=== PATIENT | female | born 1945 | race Two or more races ===

== ENCOUNTER 2021-04-10 13:57 | Emergency (ER) | payer MEDICARE, SELFPAY ==
[2021-04-10] VITALS (7 sets, daily range): BP systolic 136–170; BP diastolic 82–93; PULSE 77–94; RESP 21–22; TEMP 37.1; O2SAT 92–97; BMI 36.9
--- NOTE | ~2021-04-10 | XR_ITS ---
EXAMINATION: XR CHEST CLINICAL INFORMATION: Cough, shortness of breath. COMPARISON: 03/02/2018 portable chest. TECHNIQUE: 2 views of the chest were obtained. FINDINGS: No significant abnormality is noted involving the heart, lungs, mediastinum, bony thorax or soft tissues. XR/XR chest 2V IMPRESSION: No acute cardiopulmonary process.
--- NOTE | 2021-04-10 14:19 | ECG_ITS ---
Test Reason : SHORTNESS OF BREATH Blood Pressure : / mmHG Vent. Rate : 078 BPM Atrial Rate : 078 BPM P-R Int : 138 ms QRS Dur : 118 ms QT Int : 382 ms P-R-T Axes : 026 -10 147 degrees QTc Int : 435 ms Normal sinus rhythm Left ventricular hypertrophy with QRS widening and repolarization abnormality ( R in aVL , [place] product ) Incomplete left bundle branch block Abnormal ECG T wave inversion more evident in Lateral leads Referred By: Generic ED Physician Electronically Signed By:BETTY UNDERWOOD MD
[2021-04-10 14:24] LABS: MANUAL DIFF FLAG NO
--- NOTE | 2021-04-10 14:25 | PHA.MEDREC ---
Pharmacy Consult ? Medication Reconciliation Pharmacy has completed the medication reconciliation. Patient has a list of medication from [facility] which aligned with claim history. Patient use [facility] at [facility] pharmacy. Cindy TorresD
[2021-04-10 14:27] LABS: Basophils Absolute Auto 0.1 X10*3/uL (0.0-0.2); Basophils Percent Auto 0.8 % (0-2); Eosinophils Absolute Auto 0.4 X10*3/uL (0.0-0.4); Eosinophils Percent Auto 5.4 % (0-4); Hematocrit 44.6 % (37-47); Hemoglobin 14.8 g/dl (12.0-16.0); Imm Gran Abs Auto 0.02 X10*3/uL (0.00-0.03); Imm Gran Pct Auto 0.3 % (0.0-0.4); Lymphocytes Absolute Auto 2.3 X10*3/uL (1.2-4.9); Lymphocytes Percent Auto 29.2 % (20-40); Mean Corpuscular HGB Conc 33.2 g/dl (31.0-35.0); Mean Corpuscular Volume 93.5 fL (80-98); Monocytes Absolute Auto 0.9 X10*3/uL (0.1-1.2); Monocytes Percent Auto 11.7 % (2-11); Neutrophils Absolute Auto 4.2 X10*3/uL (2.0-8.3); Neutrophils Percent Auto 52.6 % (45-73); Platelet Count 218 X10*3/uL (160-400); Red Blood Count 4.77 X10*6/uL (4.20-5.50); Red Cell Distribution Width 12.3 % (11.0-16.0)
[2021-04-10 14:43] LABS: Alanine Aminotransferase 23 U/L (0-31); Albumin Level 4.2 g/dL (3.5-5.0); Alkaline Phosphatase 107 U/L (39-117); Anion Gap 12 (12-20); Aspartate Amino Transferase 19 U/L (5-31); Bilirubin Total 0.7 mg/dL (0.0-1.0); Blood Urea Nitrogen 12 mg/dL (9-16); Calcium 9.5 mg/dL (8.4-10.2); Carbon Dioxide 28 mmol/L (22-29); Chloride 105 mmol/L (96-108); Creatinine Clr Calc Pharmacy 65.9; Estimated Glomerular Filt Rate > 60; Glucose Random 126 mg/dL (60-115); Potassium 3.9 mmol/L (3.3-5.1); Sodium 141 mmol/L (135-145); Total Protein 6.9 g/dL (6.5-8.0)
[2021-04-10 14:45] LABS: COVID-19 Test Negative (Negative)
[2021-04-10 14:46] LABS: B Type Natriuretic Peptide 101 pg/mL (<100); Troponin-I High Sensitivity < 3.5 ng/L (<3.5-17.0)
--- NOTE | 2021-04-10 15:35 | ED.URI ---
HPI - URI/Sore Throat General Chief Complaint: Upper Respiratory Symptoms Stated Complaint: CHEST PAIN X 3 WEEKS Time Seen by Provider: 04/10/21 14:19 Source: patient and EMS Mode of arrival: EMS History of Present Illness HPI Narrative: 75-year-old female with past medical history of HTN, dm, pulmonary hypertension, aortic stenosis, sent in from [facility] complaining of SOB and productive cough x1 week, noted to be SOB on exertion. Reported per patient's daughter patient to have chest pain, however patient is denying. Reports chronic LE edema. 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 Denies fever, chills, recent travel, sick contacts, abdominal pain, nausea/vomiting, CP. MD elicited complaint: cough Related Data Home Medications Medication Instructions Recorded Confirmed acetaminophen 500 mg tablet 1 tab PO Q8H PRN 04/10/21 04/10/21 amlodipine 5 mg tablet 1 tab PO DAILY 04/10/21 04/10/21 cholecalciferol (vitamin D3) 25 1 tab PO QAM 04/10/21 04/10/21 mcg (1,000 unit) tablet clopidogrel 75 mg tablet 1 tab PO QAM 04/10/21 04/10/21 furosemide 20 mg tablet 0.5 tab PO QAM 04/10/21 04/10/21 pravastatin 40 mg tablet 1 tab PO BEDTIME 04/10/21 04/10/21 valsartan 320 mg tablet (Diovan) 1 tab PO QAM 04/10/21 04/10/21 Previous Rx's Medication Instructions Recorded albuterol sulfate 90 mcg/actuation 2 puff INHALATION Q4-6H PRN #6.7 g 04/10/21 aerosol inhaler benzonatate 100 mg capsule 100 mg PO TID PRN #14 cap 04/10/21 (Tessalon Perles) fluticasone propionate 50 2 spray INTRANASAL DAILY #16 g 04/10/21 mcg/actuation nasal spray,suspension (Flonase Allergy Relief) Allergies Allergy/AdvReac Type Severity Reaction Status Date / Time aspirin [ASPIRIN] Allergy Intermediate NUMBNESS Unverified 03/10/20 17:05 Penicillins [PENICILLINS] Allergy Intermediate RASH Unverified 03/10/20 17:05 penicillin V Allergy Unknown Verified 01/19/20 00:00 potassium Allergy Unknown Verified 01/19/20 00:00 Review of Systems Review of Systems: Constitutional: No Fever, No Chills, No Fatigue, No Malaise ENT/Mouth: No Ear Pain, No Nasal Congestion, No Sinus Pain, No sore throat, No Rhinorrhea, No Swallowing Difficulty Eyes: No Eye Pain, No Swelling, No Redness, No Discharge, No Vision Changes Cardiovascular: No Chest Pain, + SOB, + Dyspnea on Exertion, No Orthopnea, +chronic Edema, No Palpitations Respiratory: + Cough, + Sputum, No Wheezing, +Dyspnea Gastrointestinal: No Nausea, No Vomiting, No Diarrhea, No Constipation, No Abdominal pain Genitourinary: No irregular bleeding, No Dysuria, No Urinary Frequency, No Hematuria, No Flank Pain Musculoskeletal: No joint pain, No Myalgias Skin: No Skin Lesions, No rash Neuro: No Weakness, No Numbness, No Dizziness, No Headache Yes all other systems are reviewed and are negative [facility] Past Medical History Attestation statement: The following information was validated with the patient. Social History Social History Alcohol intake: unknown Patient Tobacco Use Status: Tobacco use Unknown Use of substances other than those prescribed or required for medical reasons: Unknown Advance Directives: No Advance Directives Information Provided: Yes Physical Exam Vital Signs: Vital Signs: Last Vital Signs Temp 98.8 F 04/10/21 15:27 Pulse 83 04/10/21 16:17 Resp 21 H 04/10/21 15:27 BP 160/93 H 04/10/21 15:41 Pulse Ox 92 04/10/21 16:56 Oxygen Flow Rate 2 04/10/21 14:40 Body Mass Index 36.9 Const: General: cooperative and no acute distress Orientation/consciousness: patient oriented x3 Limitations: no limitations HENMT: Head: Yes normal to inspection Ears: hearing grossly normal bilaterally General nose exam: Normal external nose present Face and sinus: Yes normal facial exam Eyes: General: appearance normal, both eyes and all related structures EOM: EOMs intact bilaterally Neck: Neck: Yes normal visual inspection and Yes no meningeal signs Resp: Other: Talking in complete sentences Effort & Inspection: normal respiratory effort Auscultation: diminished lung sounds (Bibasilar) Cardio: Rate: regular rate Heart sounds: S1 normal heart sound present, S2 normal heart sound present and Abnormal heart opening sounds (Murmur) GI: Inspection: Yes normal to inspection Palpation (GI): Soft to palpation, nontender, no guarding and not rigid Skin: Rashes: no rashes Wounds: no wounds Neuro: General: patient oriented x3, tone normal, moves all extremities and no meningeal signs Gait exam (Neuro): Normal gait present Extrem: Other: +1 bilaterally LE edema General: Yes normal to inspection and Yes no calf tenderness Course Course Course Narrative: -1546--no leukocytosis. H&H stable. Labs otherwise unremarkable. BNP 101, troponin negative -COVID-19 negative XR chest 2V IMPRESSION: No acute cardiopulmonary process. -1720--ambulated patient with pulse ox and she maintained saturations of 92% on RA. Results discussed with patient and daughter at bedside including worrisome signs and symptoms and strict return precautions the need to follow-up with PCP/Cardiology, patient verbalized understanding feel safe for discharge home MDM - URI/Sore Throat MDM Narrative Medical decision making narrative: 75-year-old female with past medical history of HTN, dm, pulmonary hypertension, aortic stenosis, sent in [facility] complaining of SOB and productive cough x1 week, noted to be SOB on exertion. On exam mildly tachypneic, murmur appreciated, lungs with bibasilar decreased BS, chronic LE edema. Concern for viral syndrome, tested negative for COVID-19 [employer]. Rule out pneumonia vs CHF. Symptoms atypical for ACS or PE Plan: EKG, labs, CXR, COVID-19 testing, DuoNeb, re-evaluate Medical Records Attestation: I reviewed the patient's medical records. Lab Data Attestation: I reviewed the patient's lab results. Result diagrams: 04/10/21 14:20 04/10/21 14:20 Labs: Lab Results 04/10/21 04/10/21 04/10/21 Range/Units 14:20 14:20 14:20 WBC 8.0 (4.8-10.8) X10*3/uL RBC 4.77 (4.20-5.50) X10*6/uL Hgb 14.8 (12.0-16.0) g/dl Hct 44.6 (37-47) % MCV 93.5 (80-98) fL MCH 31.0 (27.0-33.0) pg MCHC 33.2 (31.0-35.0) g/dl RDW 12.3 (11.0-16.0) % Plt Count 218 (160-400) X10*3/uL MPV 10.0 (9.4-12.3) fL Immature Gran % (Auto) 0.3 (0.0-0.4) % Neut % (Auto) 52.6 (45-73) % Lymph % (Auto) 29.2 (20-40) % [place] % (Auto) 11.7 H (2-11) % Eos % (Auto) 5.4 H (0-4) % Baso % (Auto) 0.8 (0-2) % Lymph # (Auto) 2.3 (1.2-4.9) X10*3/uL [place] # (Auto) 0.9 (0.1-1.2) X10*3/uL Eos # (Auto) 0.4 (0.0-0.4) X10*3/uL Baso # (Auto) 0.1 (0.0-0.2) X10*3/uL Abs Immat Gran (auto) 0.02 (0.00-0.03) X10*3/uL Absolute Neuts (auto) 4.2 (2.0-8.3) X10*3/uL Absolute Nucleated RBC 0.000 (0.0-0.012) X10*3/uL Nucleated RBC % (auto) 0.0 (0.0-0.2) /100WBC Sodium 141 (135-145) mmol/L Potassium 3.9 (3.3-5.1) mmol/L Chloride 105 (96-108) mmol/L Carbon Dioxide 28 (22-29) mmol/L Anion Gap 12 (12-20) BUN 12 (9-16) mg/dL Creatinine 0.80 (0.5-1.4) mg/dL Estim Creat Clear Calc 65.9 Estimated GFR > 60 Random Glucose 126 H (60-115) mg/dL Calcium 9.5 (8.4-10.2) mg/dL Total Bilirubin 0.7 (0.0-1.0) mg/dL AST 19 (5-31) U/L ALT 23 (0-31) U/L Alkaline Phosphatase 107 (39-117) U/L Troponin I High Sens < 3.5 (<3.5-17.0) ng/L B-Natriuretic Peptide 101 H (<100) pg/mL Total Protein 6.9 (6.5-8.0) g/dL Albumin 4.2 (3.5-5.0) g/dL COVID-19 (JAYSON) (Negative) COVID-19 Clin Com 04/10/21 Range/Units 14:20 WBC (4.8-10.8) X10*3/uL RBC (4.20-5.50) X10*6/uL Hgb (12.0-16.0) g/dl Hct (37-47) % MCV (80-98) fL MCH (27.0-33.0) pg MCHC (31.0-35.0) g/dl RDW (11.0-16.0) % Plt Count (160-400) X10*3/uL MPV (9.4-12.3) fL Immature Gran % (Auto) (0.0-0.4) % Neut % (Auto) (45-73) % Lymph % (Auto) (20-40) % [place] % (Auto) (2-11) % Eos % (Auto) (0-4) % Baso % (Auto) (0-2) % Lymph # (Auto) (1.2-4.9) X10*3/uL [place] # (Auto) (0.1-1.2) X10*3/uL Eos # (Auto) (0.0-0.4) X10*3/uL Baso # (Auto) (0.0-0.2) X10*3/uL Abs Immat Gran (auto) (0.00-0.03) X10*3/uL Absolute Neuts (auto) (2.0-8.3) X10*3/uL Absolute Nucleated RBC (0.0-0.012) X10*3/uL Nucleated RBC % (auto) (0.0-0.2) /100WBC Sodium (135-145) mmol/L Potassium (3.3-5.1) mmol/L Chloride (96-108) mmol/L Carbon Dioxide (22-29) mmol/L Anion Gap (12-20) BUN (9-16) mg/dL Creatinine (0.5-1.4) mg/dL Estim Creat Clear Calc Estimated GFR Random Glucose (60-115) mg/dL Calcium (8.4-10.2) mg/dL Total Bilirubin (0.0-1.0) mg/dL AST (5-31) U/L ALT (0-31) U/L Alkaline Phosphatase (39-117) U/L Troponin I High Sens (<3.5-17.0) ng/L B-Natriuretic Peptide (<100) pg/mL Total Protein (6.5-8.0) g/dL Albumin (3.5-5.0) g/dL COVID-19 (JAYSON) Negative (Negative) COVID-19 Clin Com See Note ECG Data Attestation: I personally reviewed and interpreted this ECG as follows: ECG interpretation date: 04/10/21 Prior ECG tracings: available for review Interpretation: EKG normal sinus rhythm rate of 78 P are 138 QRS 118 Wide complex with repolarization Nonspecific ST changes Discharge Plan Discharge Clinical Impression: Upper respiratory infection Qualifiers: URI type: unspecified viral URI Qualified Code(s): J06.9 - Acute upper respiratory infection, unspecified Patient Disposition: Home, Self-Care Instructions: Viral Syndrome (ED) Additional Instructions: Your blood work was reassuring today in the ED. Her chest x-ray was unremarkable. He tests negative for COVID. It is important for you to continue her home medications. Use albuterol inhaler at home as needed for shortness of breath/wheezing. 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 If your symptoms persist or worsen, constant worsening shortness of breath, developed chest pain, fever or chills please return to the ED. Tessalon Perles for cough. Reyes an?lisis de renan fue reconfortante hoy en el servicio de urgencias. Reyes radiograf?a de t?rax no tuvo nada especial. Da negativo para COVID. Es importante que contin?e tomando huma medicamentos en el hogar. Use el inhalador de albuterol en casa seg?n sea necesario para la dificultad para respirar / sibilancias. Comun?quese con reyes cardi?logo lo antes posible, llame ma?adama para programar jeni barbara. Si huma s?ntomas persisten o empeoran, dificultad para respirar que empeora constantemente, dolor en el pecho desarrollado, fiebre o escalofr?os, regrese al servicio de urgencias. Tessalon Perles para la tos. Prescriptions: New albuterol sulfate 90 mcg/actuation HFA aerosol inhaler 2 puff inhalation Q4-6H PRN (Reason: shortness of breath or wheezing) Qty: 6.7 RF: 0 benzonatate [Tessalon Perles] 100 mg capsule 100 mg PO TID PRN (Reason: cough) Qty: 14 RF: 0 fluticasone propionate [Flonase Allergy Relief] 50 mcg/actuation spray,suspension 2 spray intranasal DAILY Qty: 16 RF: 0 No Action pravastatin 40 mg tablet 1 tab PO BEDTIME RF: 0 clopidogrel 75 mg tablet 1 tab PO QAM RF: 0 amlodipine 5 mg tablet 1 tab PO DAILY RF: 0 acetaminophen 500 mg tablet 1 tab PO Q8H PRN (Reason: Pain) RF: 0 valsartan [Diovan] 320 mg tablet 1 tab PO QAM RF: 0 furosemide 20 mg tablet 0.5 tab PO QAM RF: 0 cholecalciferol (vitamin D3) 25 mcg (1,000 unit) tablet 1 tab PO QAM RF: 0 Referrals: Gauri Cardenas MD [Primary Care Provider] - 2 days Johan Ellis MD [Physician] - 2 days Print Language: Guyanese
[2021-04-10] MEDS: amLODIPine Besylate 5 MG TABLET PO (15:41)
[2021-04-10] MEDS: Benzonatate 100 MG CAPSULE 200 MG PO (15:43)
[2021-04-10] MEDS: Albuterol/Iprat 2.5/0.5MG 3 ML AMPUL.NEB INHALE (16:17)
== END 2021-04-10 17:51 | disposition home or self-care (01) ==
PROVIDERS: Emergency Provider Emergency Medicine; PCP Family Medicine
DX: J06.9 Acute upper respiratory infection, unspecified (principal); R07.9 Chest pain, unspecified; I10 Essential (primary) hypertension; R05.9 Cough, unspecified; Z20.822 Contact with and (suspected) exposure to COVID-19; Z79.899 Other long term (current) drug therapy
CPT/HCPCS: 36415; 71046; 80053; 83880; 84484; 85025; 87635; 93005; 94640; 99284; 99285

== ENCOUNTER 2022-01-22 11:11 | Outpatient (REF) | payer OTHER, SELFPAY ==
[2022-01-22 12:15] LABS: COVID-19 Test Negative (Negative)
== END 2022-01-22 11:12 | disposition home or self-care (01) ==
LOC: HO.LAB 11:11
PROVIDERS: Visit Provider Internal Medicine
DX: Z20.822 Contact with and (suspected) exposure to COVID-19 (principal)
CPT/HCPCS: 87635; C9803

== ENCOUNTER 2022-02-13 08:27 | Inpatient (IN) | payer OTHER, SELFPAY ==
--- NOTE | ~2022-02-13 | CT_ITS ---
EXAMINATION: CT HEAD WITHOUT CONTRAST CLINICAL INFORMATION: Weakness of right leg. COMPARISON: None TECHNIQUE: Contiguous axial imaging was performed from the skull base to vertex without intravenous administration of contrast. This CT examination was performed using dose optimization techniques as appropriate, variously including the following: *Automated exposure control *Adjustment of mA and/or kV according to patient size (this includes techniques or standardized protocols for targeted exams where dose is matched to indication/reason for exam; i.e. extremities or head) *Use of iterative reconstruction technique DLP: 648 mGy-cm FINDINGS: There is atherosclerotic calcification of the vertebrobasilar and cavernous carotid arteries. 2 mild patchy hypoattenuation is present in supratentorial white matter is likely sequela of chronic microangiopathy. Otherwise, the brain parenchyma has normal attenuation. The schuler-white matter differentiation is well preserved. No evidence of an acute major vascular territory infarction. No intracranial hemorrhage, extra-axial fluid collection, focal mass effect or midline shift. The ventricles have normal size and configuration; no hydrocephalus. The brainstem and cerebellum have a normal appearance. The cerebellar tonsils are in normal position. The calvarium is intact. Mucosal thickening of bilateral ethmoid and maxillary sinuses without air-fluid levels. The mastoid air cells and middle ear cavities are well aerated. The orbits and globes are unremarkable. The temporomandibular joints are normal. CT/CT head/brain wo con IMPRESSION: * No evidence of intracranial hemorrhage or acute major vascular territory infarction. 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
--- NOTE | ~2022-02-13 | MR_ITS ---
MRI OF THE BRAIN WITHOUT IV CONTRAST INDICATION: Right leg weakness to evaluate for stroke. COMPARISON: Head CT 02/13/2022. TECHNIQUE: Multiplanar multisequence MR imaging of the brain was obtained without IV contrast. FINDINGS: There is no hydrocephalus, extra-axial surface collection, or herniation. There is advanced chronic microangiopathy and there is global cerebral volume loss. The major flow voids at the skull base are preserved. There is no acute infarct on diffusion-weighted imaging. There is favored artifact within the left temporal lobe and left uncus on the diffusion series which extends outside the intracranial compartment. There is no intracranial hemorrhage on the gradient recalled echo acquisition. Chronic microhemorrhages within the cerebellar hemispheres bilaterally. The midline structures are normal. The cerebellar tonsils are normally positioned. The cerebellum and brainstem are normal. Atlantooccipital assimilation bilaterally. Osseous marrow signal intensity is homogenous. The visualized soft tissues are unremarkable. MR/MR head/brain wo con IMPRESSION: No definite acute intracranial findings however the stroke sensitive diffusion series is limited, particularly given favored artifact coursing through the left temporal lobe and left uncus. There is advanced chronic microangiopathy and there is global cerebral volume loss. Atlantooccipital assimilation bilaterally. Chronic microhemorrhages within the cerebellar hemispheres bilaterally.
--- NOTE | ~2022-02-13 | US_ITS ---
EXAMINATION: US PELVIS CLINICAL INFORMATION: Right adnexal mass COMPARISON: None TECHNIQUE: Ultrasound of the pelvis is performed using both transabdominal and transvaginal transducers along with Doppler. Transvaginal imaging is performed due to inadequate visualization transabdominally. FINDINGS: Uterus: The uterus is anteverted, anteflexed and measures 6.0 cm in length, 3.1 mL in AP and 4.0 cm in transverse dimension. The double wall endometrial thickness is 0.3 cm. The uterus is smooth in contour and has normal myometrial echogenicity. There is a small hypoechoic area in the right body of uterus measuring 0.7 x 0.8 x 0.6 cm suggestive of small fibroid. Adnexa: The bladder is significant distended and patient unable to void. Both ovaries are not visualized. The transvaginal exam is limited as well. There is a right adnexal anechoic cyst measuring 8.0 x 3.9 x 5.1 cm. Question ovarian versus paraovarian cyst. There is a trace free fluid in the cul-de-sac. US/US pelvic and transvaginal IMPRESSION: Small uterine fibroid. The uterus otherwise unremarkable. Patient is unable to void moderately distended bladder. Transvaginal ultrasound is limited. Ovaries are not seen. However there is a right adnexal 8 cm cyst, question ovarian versus paraovarian. Trace free fluid in the cul-de-sac.
--- NOTE | ~2022-02-13 | CT_ITS ---
EXAMINATION: CTA ABDOMEN, PELVIS AND LOWER EXTREMITY RUNOFF WITH CONTRAST CLINICAL INFORMATION: Right leg pain. Decreased pulses. COMPARISON: None TECHNIQUE: Routine abdominal aorta and lower extremity runoff CTA protocol with contrast was performed. 100 mL of Omnipaque 350 was administered. Coronal and sagittal MIPS images were generated from the source data. This CT examination was performed using dose optimization techniques as appropriate, variously including the following: *Automated exposure control *Adjustment of mA and/or kV according to patient size (this includes techniques or standardized protocols for targeted exams where dose is matched to indication/reason for exam; i.e. extremities or head) *Use of iterative reconstruction technique TOTAL DLP: 552 mGy-cm FINDINGS: Vascular: 1. Distal Thoracic aorta:Normal in caliber. 2. Mesenteric Arteries:The celiac axis, superior mesenteric artery and inferior mesenteric artery are patent. There is mild calcific disease at the origins of the celiac and superior mesenteric arteries which does not result in hemodynamically significant stenosis. 3. Renal Arteries:There are 2 renal arteries to each kidney. There is atherosclerotic disease at the origins of each of the renal arteries which does not result in hemodynamically significant stenosis. 4. Infrarenal Abdominal Aorta:Patent normal in caliber. There is moderate eccentric wall calcification without luminal stenosis. 5. Right Lower Extremity Arterial Perfusion: The common, external and internal iliac arteries are well-opacified and normal in caliber. No significant stenosis. The common femoral, profunda femoris, superficial femoral arteries are well opacified without stenosis. The popliteal artery is widely patent. There is minimal calcific disease at the level of the condyles without stenosis. The anterior tibial artery, tibioperoneal trunk, posterior tibial and peroneal arteries are opacified to the level of the ankle. There is no opacification of the vessels beyond level of the ankle. This may likely relate to contrast bolus timing. 6. Left Lower Extremity Arterial Perfusion: The common, external, and internal iliac arteries are well opacified, normal in caliber and without luminal stenosis. The common femoral artery is patent without stenosis. The profunda femoris is patent without stenosis. The superficial femoral artery is patent without stenosis. Popliteal artery is widely patent. The anterior tibial, posterior tibial, peroneal arteries are patent to the level of the distal calf beyond which there is no significant arterial opacification. This is most likely related to chronic. 7. Venous: The inferior vena cava, renal veins, iliofemoral veins have an unremarkable appearance for a venous phase of contrast. There are presumed chronic venous stasis changes of the lower extremities at the level of the calf and below with possible calcification of superficial vessels on the right. NONVASCULAR: Lung Bases: Limited by respiratory motion. The lung bases are clear. There is no pleural effusion. The heart is at the upper limits of normal for size. Liver, Gallbladder and Biliary Tree: The liver is normal in size, shape, and attenuation. No focal hepatic lesion or biliary ductal dilatation is present. Gallbladder is unremarkable. Pancreas: Unremarkable. Spleen: Unremarkable. Adrenal Glands: Unremarkable. Kidneys and Ureters: The kidneys are normal in size, shape, and attenuation. At the mid to lower pole the left kidney there is a 1.8 cm cyst which does not require routine radiographic follow-up. At the lower pole there is a similar 1 cm simple cyst. There is a 2 mm calcification at the lower pole of the right kidney which could represent a nonobstructing calculus versus a vascular calcification (image 363, series 6). There is no hydronephrosis or hydroureter. No perinephric stranding. Bladder: Unremarkable. Gastrointestinal Tract: The small and large bowel are unremarkable. The appendix is unremarkable. Abdominal Wall: No significant hernia is appreciated. Lymph Nodes: Normal. Pelvic Viscera: Unremarkable appearance of the uterus and left adnexa. Within the right adnexa there is a relatively homogeneous indeterminate 8.4 x 4.4 x 5.2 cm lesion. Osseous Structures: Mild multilevel degenerative changes. No acute or aggressive bony abnormality. CT/CT angio abd aorta runoff IMPRESSION: Patent abdominopelvic arterial vasculature. There is no opacification of the runoff vessels beyond the level of the distal calf bilaterally. This is most likely related to contrast bolus timing. There are presumed chronic venous stasis changes of the right lower extremity and soft tissue edema. There is an indeterminate 8.4 x 5.2 x 4.4 cm right adnexal lesion which appears relatively homogeneous, likely simple appearing. Follow-up ultrasound for further characterization suggested.
--- NOTE | ~2022-02-13 | MR_ITS ---
EXAMINATION: MR LUMBAR SPINE WITHOUT CONTRAST CLINICAL INFORMATION: Low back pain. Right lower extremity numbness and weakness. COMPARISON: CT angiogram of the abdomen and pelvis 02/13/2022. TECHNIQUE: MRI of the lumbar spine was obtained using routine sequences without contrast. FINDINGS: There is transitional spinal anatomy at the lumbosacral junction with partial lumbarization of the S1 vertebral segment. There is a well-formed intervertebral disc at S1-S2. There is grade 1 anterolisthesis of L5 on S1. Alignment is otherwise normal. Vertebral heights are preserved. There is a sclerotic osseous lesions involving the left L3 pedicle. Otherwise no acute bone marrow signal changes. The tip of the conus medullaris is located at L1. No mass effect on the conus. Visualized distal cord signal intensity is normal. At L1-L2 and L2-L3 the annular contours are normal. No canal or neuroforaminal compromise at these 2 levels. At L3-L4 there is a slightly bulging disc. No canal stenosis. No mass effect on the traversing or foraminal nerve roots. At L4-L5 there is a slightly bulging disc. Bilateral facet degenerative change. No canal stenosis. No mass effect on the traversing or foraminal nerve roots. At L5-S1 there is a pseudodisc bulge. Advanced facet degenerative change. Mild canal stenosis. Subarticular zone narrowing causes abutment and possible compression of the traversing S1 nerve roots. No foraminal nerve root compression. At S1-S2 there is no canal or neuroforaminal compromise. Limited visualization of the retroperitoneal anatomy reveals a few well marginated benign-appearing cystic lesions within the left kidney. Psoas and paraspinal muscle groups are symmetric. MR/MR lumbar spine wo con IMPRESSION: Of note there is transitional spinal anatomy at the lumbosacral junction with partial lumbarization of the S1 vertebral segment. There is a well-formed intervertebral disc at S1-S2. There is multilevel degenerative spondylosis of the lumbar spine with grade 1 anterolisthesis of L5 on S1 related to advanced facet degenerative changes at this level. Subarticular zone narrowing at this level causes abutment and possible compression of both traversing S1 nerve roots. Otherwise no substantial mass effect on the traversing or foraminal nerve roots elsewhere within the lumbar spine. There is a nonspecific sclerotic lesion involving the left L3 pedicle. The etiology of this finding is uncertain. The possibility of a sclerotic osseous metastasis cannot be definitively excluded on the basis of this examination. Correlation with prior imaging is therefore recommended if available. Otherwise a whole-body bone scan can be obtained to determine whether there is any osteoblastic activity.
--- NOTE | ~2022-02-13 | XR_ITS ---
EXAMINATION: XR HIP, RIGHT CLINICAL INFORMATION: Pain COMPARISON: None TECHNIQUE: Two views of the right hip and one view of the pelvis. FINDINGS: Bone alignment is normal. No fracture or dislocation is seen. 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 There are degenerative changes at the sacroiliac joints. There are degenerative changes at the bilateral greater trochanters without soft tissue ossification/osteophyte. Soft tissues are otherwise unremarkable. XR/XR hip RT min 2V IMPRESSION: Bilateral degenerative changes.
--- NOTE | ~2022-02-13 | MR_ITS ---
MR THORACIC SPINE WITHOUT AND WITH IV CONTRAST CLINICAL INFORMATION: Right leg weakness. COMPARISON: Lumbar spine MRI 02/13/2022. TECHNIQUE: MRI of the thoracic spine was obtained using routine sequences with and without contrast. Intravenous contrast: Gadavist 10 mL. FINDINGS: Leftward convex lumbar scoliosis. There are fairly extensive nonenhancing intramedullary T2 signal changes within the thoracic spinal cord, greater on the right side, spanning the T9 through the L1 conus tip level. Differential considerations for these findings include a thoracic spinal cord infarct, venous congestion, or less likely an inflammatory, demyelinating, or neoplastic given the lack of enhancement however assessment on postcontrast imaging is limited by the degree of artifact. No definite flow voids are seen along the periphery of the thoracic spinal cord however a spinal angiogram would be helpful in more definitively excluding a spinal dural aVF as a cause for these findings. Close follow-up is advised. No definite additional spinal cord signal abnormality. No pathologic intrathecal enhancement accounting for artifact. Midthoracic kyphosis. Multilevel endplate osteophytes. Vertebral body heights are preserved. Small paracentral disc protrusions at T2-T3, T3-T4, T4-T5, T5-T6, T6-T7 and T7-T8, and T8-T9 highly dense ventral thecal sac and mildly narrow the central canal appears levels. The disc protrusion at T8-T9 slightly flattens the ventral cord. No high-grade foraminal stenosis. MR/MR thoracic spine wo/w con IMPRESSION: - There are fairly extensive nonenhancing intramedullary T2 signal changes within the thoracic spinal cord, greater on the right side, spanning the T9 through the L1 conus tip level. Differential considerations for these findings include a thoracic spinal cord infarct, venous congestion, or less likely an inflammatory, demyelinating, or neoplastic given the lack of enhancement however assessment on postcontrast imaging is limited by the degree of artifact. No definite flow voids are seen along the periphery of the thoracic spinal cord however a spinal angiogram would be helpful in more definitively excluding a spinal dural aVF as a cause for these findings. Close follow-up is advised. - Small paracentral disc protrusions throughout the thoracic spine without significant central canal stenosis. A disc protrusion at T8-T9 mildly flattens the ventral cord without resulting in significant central canal stenosis. Findings discussed with Gauri FELIPE at 1:32 PM on 02/16/2022.
--- NOTE | ~2022-02-13 | XR_ITS ---
EXAMINATION: XR CHEST CLINICAL INFORMATION: Pain COMPARISON: Chest radiograph from 04/10/2020 TECHNIQUE: Frontal view of the chest was obtained. FINDINGS: Bilateral low lung volumes with slight accentuation of the pulmonary vasculature. Bibasilar atelectasis. Cardiomediastinal silhouette is stable. Osseous structures are intact. Soft tissues are unremarkable. XR/XR chest 1V IMPRESSION: 1. Bilateral low lung volumes with slight accentuation of the pulmonary vasculature. 2. Bibasilar atelectasis.
--- NOTE | 2022-02-13 08:36 | ECG_ITS ---
Test Reason : abdominal pain Blood Pressure : / mmHG Vent. Rate : 072 BPM Atrial Rate : 072 BPM P-R Int : 142 ms QRS Dur : 122 ms QT Int : 418 ms P-R-T Axes : 024 -19 143 degrees QTc Int : 457 ms Normal sinus rhythm Left bundle branch block Abnormal ECG When compared with ECG of 10-APR-2021 15:04, Left bundle branch block is now Present Referred By: Supriya Hernandez Electronically Signed By:MARK TRIANA
--- NOTE | 2022-02-13 08:42 | ED.EXTPRO ---
HPI - Extremity Problem General Chief complaint: General Medical Stated complaint: LEG/BACK PAIN PER EMS Time Seen by Provider: 02/13/22 08:35 Source: patient, EMS and science interpreter Mode of arrival: EMS Limitations: other (very poor historian) History of Present Illness HPI Narrative: 76 yo female from home hx of HTN, DM, pulm HTN, HLD, asthma, aortic stenosis reports she woke up at 4am went to use the bathroom and noted her R foot was numb. She also developed R sided back pain. She denies falls. She states the symptoms have worsened and she cannot move her R leg. She is not on blood thinners. She called 911 - EMS notes she vomited en route. Patient woke up with symptoms and presented 4.5 hours after onset MD Complaint: other (R leg weakness/numbness/pain) Onset (ago): hour(s) (woke up with symptoms 4am) Pain Consistency: other (worsening) Location: right and lower extremity Quality: aching and other (states it is numb) Radiation: distal Relieving factors: nothing Exacerbating factors: walking Associated symptoms: other (c/o pain in R flank as well, vomited x 1 en route) Related Data Home Medications Medication Instructions Recorded Confirmed acetaminophen 500 mg tablet 1 tab PO Q8H PRN Pain 04/10/21 04/10/21 amlodipine 5 mg tablet 1 tab PO DAILY 04/10/21 04/10/21 cholecalciferol (vitamin D3) 25 1 tab PO QAM 04/10/21 04/10/21 mcg (1,000 unit) tablet clopidogrel 75 mg tablet 1 tab PO QAM 04/10/21 04/10/21 furosemide 20 mg tablet 0.5 tab PO QAM 04/10/21 04/10/21 pravastatin 40 mg tablet 1 tab PO BEDTIME 04/10/21 04/10/21 valsartan 320 mg tablet (Diovan) 1 tab PO QAM 04/10/21 04/10/21 Previous Rx's Medication Instructions Recorded albuterol sulfate 90 mcg/actuation 2 puff inhalation Q4-6H PRN 04/10/21 aerosol inhaler shortness of breath or wheezing #6.7 grams benzonatate 100 mg capsule 100 mg PO TID PRN cough #14 caps 04/10/21 (Ramon Sparks) fluticasone propionate 50 2 spray intranasal DAILY #16 grams 04/10/21 mcg/actuation nasal spray,suspension (Flonase Allergy Relief) Allergies Allergy/AdvReac Type Severity Reaction Status Date / Time aspirin [ASPIRIN] Allergy Intermediate NUMBNESS Unverified 03/10/20 17:05 Penicillins [PENICILLINS] Allergy Intermediate RASH Unverified 03/10/20 17:05 penicillin V Allergy Unknown Verified 01/19/20 00:00 potassium Allergy Unknown Verified 01/19/20 00:00 Review of Systems Review of Systems: Constitutional : No Fever, No Chills ENT/Mouth : No Ear Pain, No Hoarseness, No sore throat Eyes: No Eye Pain, No Swelling, No Redness, No Foreign Body Cardiovascular : No Chest Pain, No SOB Respiratory : No Cough, No Dyspnea Gastrointestinal : No Nausea, No Vomiting, No Diarrhea, pos abdominal Pain Genitourinary : No Dysuria, No Hematuria Musculoskeletal : no joint pain, No Myalgias, No Joint Swelling, pos leg pain Skin : No Skin lacerations, No rash Neuro : No Weakness, pos Numbness, No Loss of Consciousness, No Dizziness, No Headache Psych : No Anxiety/Panic, No Depression Heme/Lymph: no easy bruising, no Lymphadenopathy Endocrine : No Polyuria, No Polydipsia All other systems reviewed and are negative [facility] Past Medical History Attestation statement: The following information was validated with the patient. Medical History Aortic stenosis Asthma Diabetes HTN (hypertension) Hyperlipidemia Pulmonary hypertension Social History Social History (Updated 02/13/22 @ 08:46 by Supriya Hernandez DO) Alcohol intake: never Patient Tobacco Use Status: Never used Tobacco Use of substances other than those prescribed or required for medical reasons: No Advance Directives: Yes Advance Directives Information Provided: Yes Advance Directives on File: No Physical Exam Vital Signs: Vital Signs: Last Vital Signs Temp 98.5 F 02/13/22 14:18 Pulse 68 02/13/22 14:18 Resp 18 02/13/22 14:18 BP 142/70 H 02/13/22 14:18 Pulse Ox 97 02/13/22 14:18 O2 Del Method 02/13/22 14:18 O2 Flow Rate 2 02/13/22 14:18 BMI result Body Mass Index 29.5 Appearance: Alert. Oriented X3. Anxious mild acute distress. Very hard to get a history from, repeatedly had to be questioned and redirected , has no issues rolling back and forth on the bed Eyes: Pupils equal, round and reactive to light. ENT: Pharynx normal. Neck: Normal inspection. Neck supple. CVS: Normal heart rate and rhythm. R foot unable to palpate pulses but she does have dopplerable pulses - L foot bounding pulses so there is a discrepancy Respiratory: No respiratory distress. Breath sounds normal. Abdomen: Soft and ttp in R flank no rebound : perineal sensation intact Rectal: normal rectal tone, no pain or grimace at all when rotating the patient onto her back or laying patient flat Skin: Skin warm and dry. Normal skin color. Normal skin turgor. Extremities: bilatera trace pitting edema, R leg is flaccid but patient will not move leg or try no compensatory heel response in left leg when asked to raise the right leg - she states she cannot feel the right leg. Neuro: Oriented X 3. RLE flaccid, numbness No sensory deficit. NIH Stroke Scale Internal: Initial- Upon Arrival Level of Consciousness: Alert Level of Consciousness Questions: Answers both questions correctly Level of Consciousness Commands: Performs both tasks correctly Best Gaze: Normal Visual: No visual loss Facial Palsy: Normal Motor Arm (Right): No drift Motor Arm (Left): No drift Motor Leg (Right): No movement Motor Leg (Left): No drift Limb Ataxia: Absent Sensory: Normal Best Language: No aphasia Dysarthia: Normal Extinction and Inattention: No abnormality Score: 4 Course Course Course Narrative: daughter at bedside - states mom always has chronic leg pain, the patient is moving her right leg now and crying in pain, patient withdrawing now from tactile stimuli when touched and states it hurts. which doesn't make sense if her leg is numb. she has 1+ DTR bilaterally but difficult to examine due to pain. At this time will give morphine and reassess. Could be chronic pain and she is moving leg now and seems to have sensation intact. at this time lactic acidosis could be due to episode of vomiting and patient thrashing around on arrival no infection or signs of sepsis at this time has no tachycardia, fevers, WBC count will obtain MRI of back given RL findings and c/o back pain lactic increases but no signs of infection - negative WBC count, negative for pneumonia, negative UTI. unexplained lactic acidosis - MRI does not correlate with findings - will admit for back pain and RLE weakness. given increasing lactic acidosis I do not have a source but possible infection cannot be excluded will obtain cultures - start on levofloxacin 244pm may need MRI of brain while admitted possible stroke was out of window for tPa MDM - Extremity (Nontraumatic) MDM Narrative Medical decision making narrative: 76 yo female from home hx of HTN, DM, pulm HTN, HLD, asthma, aortic stenosis here with a very atypical story and presentation but a constellation of symptoms including R flank pain, vomiting x1, R leg numbness/flaccidity with decreased pulses and pain only able to doppler her pulses which is different from her left side exam. At this time will obtain labs, CT head for stroke (out of window for tPa - presenting 4.5 hours later and wake up). CTA of aorta given R leg pain/weakness/decreased pulses to r/o emboli/occlusion. IV morphine for pain. Dispo per results and findings. I do not think she has compression of the back given no back pain on exam, normal rectal tone. Lab Data Result diagrams: 02/13/22 09:10 02/13/22 09:10 Labs: Lab Results 02/13/22 02/13/22 02/13/22 Range/Units 08:51 09:10 09:10 WBC 7.1 (4.8-10.8) X10*3/uL RBC 4.86 (4.20-5.50) X10*6/uL Hgb 15.3 (12.0-16.0) g/dl Hct 44.8 (37.0-47.0) % MCV 92.2 (80.0-98.0) fL MCH 31.5 (27.0-33.0) pg MCHC 34.2 (31.0-35.0) g/dl RDW 12.2 (11.0-16.0) % Plt Count 182 (160-400) X10*3/uL MPV 10.4 (9.4-12.3) fL Immature Gran % (Auto) 1.0 H (0.0-0.4) % Neut % (Auto) 79.4 H (45-73) % Lymph % (Auto) 14.0 L (20-40) % Bailey % (Auto) 4.9 (2-11) % Eos % (Auto) 0.1 (0-4) % Baso % (Auto) 0.6 (0-2) % Lymph # (Auto) 1.0 L (1.2-4.9) X10*3/uL Bailey # (Auto) 0.4 (0.1-1.2) X10*3/uL Eos # (Auto) 0.0 (0.0-0.4) X10*3/uL Baso # (Auto) 0.0 (0.0-0.2) X10*3/uL Abs Immat Gran (auto) 0.07 H (0.00-0.03) X10*3/uL Absolute Neuts (auto) 5.7 (2.0-8.3) x10*3/uL Absolute Nucleated RBC 0.000 (0.0-0.012) X10*3/uL Nucleated RBC % (auto) 0.0 (0.0-0.2) /100WBC PT (10.0-13.1) SEC INR (0.9-1.1) APTT (26.0-36.4) SEC Sodium 137 (135-145) mmol/L Potassium 3.7 (3.3-5.1) mmol/L Chloride 101 (96-108) mmol/L Carbon Dioxide 22 (22-29) mmol/L Anion Gap 18 (12-20) BUN 13 (9-16) mg/dL Creatinine 0.72 (0.5-1.4) mg/dL Estim Creat Clear Calc 64.3 Estimated GFR > 60 POC Glucose 175 H (60-115) mg/dL Random Glucose 219 H (60-115) mg/dL Lactic Acid (0.5-2.0) mmol/L Lactic Acid F/U @ 2Hr (0.5-2.0) mmol/L Lactic Acid F/U @ 4Hr (0.5-2.0) mmol/L Calcium 9.1 (8.4-10.2) mg/dL Magnesium 1.8 (1.6-2.6) mg/dL Total Bilirubin 1.0 (0.0-1.0) mg/dL Direct Bilirubin 0.4 (0.0-0.5) mg/dL AST 23 (5-31) U/L ALT 32 H (0-31) U/L Alkaline Phosphatase 103 (39-117) U/L Troponin I High Sens (<3.5-17.0) ng/L B-Natriuretic Peptide (<100) pg/mL Total Protein 7.4 (6.5-8.0) g/dL Albumin 4.5 (3.5-5.0) g/dL Lipase 16 (8-78) U/L Urine Color Urine Appearance Urine pH (5.0-8.0) Ur Specific [place] (1.005-1.025) Urine Protein (Neg-Trace) mg/dL Urine Glucose (UA) (Negative) mg/dL Urine Ketones (Negative) mg/dL Urine Blood (Negative) Urine Nitrite (Negative) Ur Leukocyte Esterase (Negative) COVID-19 (JA[facility]ON) (Negative) COVID-19 Clin Com 02/13/22 02/13/22 02/13/22 Range/Units 09:10 09:10 09:10 WBC (4.8-10.8) X10*3/uL RBC (4.20-5.50) X10*6/uL Hgb (12.0-16.0) g/dl Hct (37.0-47.0) % MCV (80.0-98.0) fL MCH (27.0-33.0) pg MCHC (31.0-35.0) g/dl RDW (11.0-16.0) % Plt Count (160-400) X10*3/uL MPV (9.4-12.3) fL Immature Gran % (Auto) (0.0-0.4) % Neut % (Auto) (45-73) % Lymph % (Auto) (20-40) % Bailey % (Auto) (2-11) % Eos % (Auto) (0-4) % Baso % (Auto) (0-2) % Lymph # (Auto) (1.2-4.9) X10*3/uL Bailey # (Auto) (0.1-1.2) X10*3/uL Eos # (Auto) (0.0-0.4) X10*3/uL Baso # (Auto) (0.0-0.2) X10*3/uL Abs Immat Gran (auto) (0.00-0.03) X10*3/uL Absolute Neuts (auto) (2.0-8.3) x10*3/uL Absolute Nucleated RBC (0.0-0.012) X10*3/uL Nucleated RBC % (auto) (0.0-0.2) /100WBC PT (10.0-13.1) SEC INR (0.9-1.1) APTT (26.0-36.4) SEC Sodium (135-145) mmol/L Potassium (3.3-5.1) mmol/L Chloride (96-108) mmol/L Carbon Dioxide (22-29) mmol/L Anion Gap (12-20) BUN (9-16) mg/dL Creatinine (0.5-1.4) mg/dL Estim Creat Clear Calc Estimated GFR POC Glucose (60-115) mg/dL Random Glucose (60-115) mg/dL Lactic Acid 2.6 H* (0.5-2.0) mmol/L Lactic Acid F/U @ 2Hr (0.5-2.0) mmol/L Lactic Acid F/U @ 4Hr (0.5-2.0) mmol/L Calcium (8.4-10.2) mg/dL Magnesium (1.6-2.6) mg/dL Total Bilirubin (0.0-1.0) mg/dL Direct Bilirubin (0.0-0.5) mg/dL AST (5-31) U/L ALT (0-31) U/L Alkaline Phosphatase (39-117) U/L Troponin I High Sens (<3.5-17.0) ng/L B-Natriuretic Peptide 252 H (<100) pg/mL Total Protein (6.5-8.0) g/dL Albumin (3.5-5.0) g/dL Lipase (8-78) U/L Urine Color Urine Appearance Urine pH (5.0-8.0) Ur Specific [place] (1.005-1.025) Urine Protein (Neg-Trace) mg/dL Urine Glucose (UA) (Negative) mg/dL Urine Ketones (Negative) mg/dL Urine Blood (Negative) Urine Nitrite (Negative) Ur Leukocyte Esterase (Negative) COVID-19 ([facility]ON) Negative (Negative) COVID-19 Clin Com See Note 02/13/22 02/13/22 02/13/22 Range/Units 09:10 09:10 11:27 WBC (4.8-10.8) X10*3/uL RBC (4.20-5.50) X10*6/uL Hgb (12.0-16.0) g/dl Hct (37.0-47.0) % MCV (80.0-98.0) fL MCH (27.0-33.0) pg MCHC (31.0-35.0) g/dl RDW (11.0-16.0) % Plt Count (160-400) X10*3/uL MPV (9.4-12.3) fL Immature Gran % (Auto) (0.0-0.4) % Neut % (Auto) (45-73) % Lymph % (Auto) (20-40) % Bailey % (Auto) (2-11) % Eos % (Auto) (0-4) % Baso % (Auto) (0-2) % Lymph # (Auto) (1.2-4.9) X10*3/uL Bailey # (Auto) (0.1-1.2) X10*3/uL Eos # (Auto) (0.0-0.4) X10*3/uL Baso # (Auto) (0.0-0.2) X10*3/uL Abs Immat Gran (auto) (0.00-0.03) X10*3/uL Absolute Neuts (auto) (2.0-8.3) x10*3/uL Absolute Nucleated RBC (0.0-0.012) X10*3/uL Nucleated RBC % (auto) (0.0-0.2) /100WBC PT 12.1 (10.0-13.1) SEC INR 1.1 (0.9-1.1) APTT 27.1 (26.0-36.4) SEC Sodium (135-145) mmol/L Potassium (3.3-5.1) mmol/L Chloride (96-108) mmol/L Carbon Dioxide (22-29) mmol/L Anion Gap (12-20) BUN (9-16) mg/dL Creatinine (0.5-1.4) mg/dL Estim Creat Clear Calc Estimated GFR POC Glucose (60-115) mg/dL Random Glucose (60-115) mg/dL Lactic Acid (0.5-2.0) mmol/L Lactic Acid F/U @ 2Hr 2.8 H* (0.5-2.0) mmol/L Lactic Acid F/U @ 4Hr (0.5-2.0) mmol/L Calcium (8.4-10.2) mg/dL Magnesium (1.6-2.6) mg/dL Total Bilirubin (0.0-1.0) mg/dL Direct Bilirubin (0.0-0.5) mg/dL AST (5-31) U/L ALT (0-31) U/L Alkaline Phosphatase (39-117) U/L Troponin I High Sens 3.9 (<3.5-17.0) ng/L B-Natriuretic Peptide (<100) pg/mL Total Protein (6.5-8.0) g/dL Albumin (3.5-5.0) g/dL Lipase (8-78) U/L Urine Color Urine Appearance Urine pH (5.0-8.0) Ur Specific [place] (1.005-1.025) Urine Protein (Neg-Trace) mg/dL Urine Glucose (UA) (Negative) mg/dL Urine Ketones (Negative) mg/dL Urine Blood (Negative) Urine Nitrite (Negative) Ur Leukocyte Esterase (Negative) COVID-19 ([facility]ON) (Negative) COVID-19 Clin Com 02/13/22 02/13/22 Range/Units 11:55 13:43 WBC (4.8-10.8) X10*3/uL RBC (4.20-5.50) X10*6/uL Hgb (12.0-16.0) g/dl Hct (37.0-47.0) % MCV (80.0-98.0) fL MCH (27.0-33.0) pg MCHC (31.0-35.0) g/dl RDW (11.0-16.0) % Plt Count (160-400) X10*3/uL MPV (9.4-12.3) fL Immature Gran % (Auto) (0.0-0.4) % Neut % (Auto) (45-73) % Lymph % (Auto) (20-40) % Bailey % (Auto) (2-11) % Eos % (Auto) (0-4) % Baso % (Auto) (0-2) % Lymph # (Auto) (1.2-4.9) X10*3/uL Bailey # (Auto) (0.1-1.2) X10*3/uL Eos # (Auto) (0.0-0.4) X10*3/uL Baso # (Auto) (0.0-0.2) X10*3/uL Abs Immat Gran (auto) (0.00-0.03) X10*3/uL Absolute Neuts (auto) (2.0-8.3) x10*3/uL Absolute Nucleated RBC (0.0-0.012) X10*3/uL Nucleated RBC % (auto) (0.0-0.2) /100WBC PT (10.0-13.1) SEC INR (0.9-1.1) APTT (26.0-36.4) SEC Sodium (135-145) mmol/L Potassium (3.3-5.1) mmol/L Chloride (96-108) mmol/L Carbon Dioxide (22-29) mmol/L Anion Gap (12-20) BUN (9-16) mg/dL Creatinine (0.5-1.4) mg/dL Estim Creat Clear Calc Estimated GFR POC Glucose (60-115) mg/dL Random Glucose (60-115) mg/dL Lactic Acid (0.5-2.0) mmol/L Lactic Acid F/U @ 2Hr (0.5-2.0) mmol/L Lactic Acid F/U @ 4Hr 3.4 H* (0.5-2.0) mmol/L Calcium (8.4-10.2) mg/dL Magnesium (1.6-2.6) mg/dL Total Bilirubin (0.0-1.0) mg/dL Direct Bilirubin (0.0-0.5) mg/dL AST (5-31) U/L ALT (0-31) U/L Alkaline Phosphatase (39-117) U/L Troponin I High Sens (<3.5-17.0) ng/L B-Natriuretic Peptide (<100) pg/mL Total Protein (6.5-8.0) g/dL Albumin (3.5-5.0) g/dL Lipase (8-78) U/L Urine Color Yellow Urine Appearance Clear Urine pH 8.0 (5.0-8.0) Ur Specific [place] 1.025 (1.005-1.025) Urine Protein Negative (Neg-Trace) mg/dL Urine Glucose (UA) 100 H (Negative) mg/dL Urine Ketones Trace (Negative) mg/dL Urine Blood Negative (Negative) Urine Nitrite Negative (Negative) Ur Leukocyte Esterase Negative (Negative) COVID-19 ([facility]) (Negative) COVID-19 Clin Com ECG Data Attestation EKG: I personally reviewed and interpreted this ECG as follows: ECG interpretation date: 02/13/22 ECG interpretation time: 09:03 Interpretation: Rate: 72 Rhythm: NSR Ger[place]: left Normal P waves. Normal JESSICA. LBBB ST T wave : normal no CHRISTA, LBBB pattern qTC: normal prior studies: no priors The study has been interpreted contemporaneously by me. . Discharge Plan Discharge Clinical Impression: Acidosis, lactic Leg weakness Qualifiers: Laterality: right Qualified Code(s): R29.898 - Other symptoms and signs involving the musculoskeletal system Patient Disposition: Admitted As Inpatient
[2022-02-13 08:45] VITALS: BP 124/74; BP 164/74; PULSE 76; RESP 25; TEMP 36.9; O2SAT 94; O2SAT 96; BMI 29.5
[2022-02-13 09:00] LABS: Glucose, Whole Blood 175 mg/dL (60-115)
[2022-02-13 09:15] LABS: MANUAL DIFF FLAG NO
[2022-02-13 09:17] LABS: Basophils Percent Auto 0.6 % (0-2); Eosinophils Percent Auto 0.1 % (0-4); Hematocrit 44.8 % (37.0-47.0); Hemoglobin 15.3 g/dl (12.0-16.0); Imm Gran Abs Auto 0.07 X10*3/uL (0.00-0.03); Mean Corpuscular HGB Conc 34.2 g/dl (31.0-35.0); Mean Corpuscular Hemoglobin 31.5 pg (27.0-33.0); Mean Corpuscular Volume 92.2 fL (80.0-98.0); Mean Platelet Volume 10.4 fL (9.4-12.3); Monocytes Absolute Auto 0.4 X10*3/uL (0.1-1.2); Monocytes Percent Auto 4.9 % (2-11); Neutrophils Absolute Auto 5.7 x10*3/uL (2.0-8.3); Neutrophils Percent Auto 79.4 % (45-73); Platelet Count 182 X10*3/uL (160-400); Red Blood Count 4.86 X10*6/uL (4.20-5.50); Red Cell Distribution Width 12.2 % (11.0-16.0); White Blood Count 7.1 X10*3/uL (4.8-10.8)
[2022-02-13 09:27] LABS: INTERNATIONAL NORM RATIO 1.1 (0.9-1.1); Prothrombin Time 12.1 SEC (10.0-13.1)
[2022-02-13 09:30] LABS: Lactic Acid 2.6 mmol/L (0.5-2.0); Partial Thromboplastin Time 27.1 SEC (26.0-36.4)
[2022-02-13 09:32] LABS: COVID-19 Test Negative (Negative); IDNOW Serial# 9DB6401D
[2022-02-13 09:34] LABS: Alanine Aminotransferase 32 U/L (0-31); Albumin Level 4.5 g/dL (3.5-5.0); Alkaline Phosphatase 103 U/L (39-117); Anion Gap 18 (12-20); Aspartate Amino Transferase 23 U/L (5-31); Bilirubin Direct 0.4 mg/dL (0.0-0.5); Blood Urea Nitrogen 13 mg/dL (9-16); Calcium 9.1 mg/dL (8.4-10.2); Carbon Dioxide 22 mmol/L (22-29); Chloride 101 mmol/L (96-108); Creatinine Clr Calc Pharmacy 64.3; Estimated Glomerular Filt Rate > 60; Glucose Random 219 mg/dL (60-115); Lipase 16 U/L (8-78); Magnesium 1.8 mg/dL (1.6-2.6); Potassium 3.7 mmol/L (3.3-5.1); Sodium 137 mmol/L (135-145); Total Protein 7.4 g/dL (6.5-8.0)
[2022-02-13 09:39] LABS: B Type Natriuretic Peptide 252 pg/mL (<100)
[2022-02-13 09:40] LABS: Troponin-I High Sensitivity 3.9 ng/L (<3.5-17.0)
[2022-02-13] MEDS: iohexoL 350 MG/ML 100 ML INFUS..BTL IV (09:45)
[2022-02-13] MEDS: Morphine Sulfate 2 MG/ML CARTRIDGE IVPUSH (10:02)
[2022-02-13] MEDS: ondansetron HCL 4 MG/2 ML VIAL IVPUSH (10:02)
[2022-02-13] MEDS: 0.9 % Sodium Chloride 500 ML 250 ML IV (10:06)
[2022-02-13 10:32] VITALS: BP 150/68; PULSE 79; RESP 18; O2SAT 94
[2022-02-13 11:14] LABS: Reflex Lactate? Lactic Acid Added
[2022-02-13 11:53] LABS: ~Lactic Acid-LAB USE ONLY 2.8 mmol/L (0.5-2.0)
[2022-02-13 12:15] LABS: Appearance Urine Clear; Color Urine Yellow; Glucose Urine UA 100 mg/dL (Negative); Leukocyte Esterase Urine Negative (Negative); Nitrite Urine Negative (Negative); Specific Gravity - Urine 1.025 (1.005-1.025); Urine Blood Negative (Negative); Urine Ketones Trace mg/dL (Negative); Urine Protein Negative (Neg-Trace)
[2022-02-13 13:31] LABS: Reflex Lactate? 2 Y
[2022-02-13 14:14] LABS: ~Lactic Acid-LAB USE ONLY 3.4 mmol/L (0.5-2.0)
[2022-02-13 14:18] VITALS: BP 142/70; PULSE 68; RESP 18; TEMP 36.9; O2SAT 97
--- NOTE | 2022-02-13 15:33 | PHA.MEDREC ---
Pharmacy Consult ? Medication Reconciliation Pharmacy has completed the medication reconciliation. Used barrel drainer services. Patient attests to not taking an inhaler for SOB, flonase for allergies, and benzonatate. Patient able to recall all other meds.
[2022-02-13] MEDS: levoFLOXacin/D5W 500 MG/100 ML PIGGYBACK 100 MG IV (15:41)
[2022-02-13 16:46] VITALS: BP 147/71; PULSE 66; RESP 18; TEMP 37; O2SAT 96
--- NOTE | 2022-02-13 17:42 | PM.IMHP ---
History of Present Illness Date of Service: 02/13/22 Attending physician on admission: Jony Bejarano Chief Complaint: Right lower extremity weakness/pain 76-year-old female Cuban-speaking female history obtained via park interpreter she has past medical history of hypertension, hyperlipidemia pre diabetes, history of coronary artery disease status post LA, pulmonary hypertension, aortic stenosis presented to [facility] due to right foot numbness that she noted when she woke up at 04:00 she also complained of right-sided flank/back pain patient was unable to move her right lower extremity therefore she called 911 EMS noted 1 episode of vomiting en route. Patient denies visual symptoms no speech impairment, no upper extremity weakness numbness, Patient woke up with symptoms and presented 4.5 hours after onset in the emergency room patient underwent extensive workup chest x-ray showed bibasilar atelectasis, CT head showed no evidence of intra cranial hemorrhage or acute infarction, CTA abdomen showed 8.4 in to 5.2 into 4.4 cm right adnexal lesion related be homogeneous likely simple appearing follow-up ultrasound is recommended, a lumbar spine MRI showed left L3 pedicle nonspecific sclerotic lesion of uncertain etiology a sclerotic or shows metastasis cannot be definitely excluded, whole body bone scan is recommended to determine if there is any osteoblastic activity, CBC and electrolytes are within normal range patient noted to have elevated lactic acid, patient treated in the emergency room with IV Lasix, IV fluids and IV morphine, patient continued to have right lower extremity pain but denies abdominal pain, denies nausea vomiting. 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 no dizziness CVS no chest pain, no palpitation GI no nausea no vomiting no abdominal no urinary urgency, no frequency skin no rash Yes all other systems are reviewed and are negative [facility] Medical History Aortic stenosis Asthma Diabetes HTN (hypertension) Hyperlipidemia Pulmonary hypertension Pertinent family history: Father had coronary artery disease Mother had diabetes mellitus brother also is diabetic Social History Alcohol intake: never Patient Tobacco Use Status: Never used Tobacco Use of substances other than those prescribed or required for medical reasons: No Advance Directives: Yes Advance Directives Information Provided: Yes Advance Directives on File: No Meds Allergies Allergy/AdvReac Type Severity Reaction Status Date / Time aspirin [ASPIRIN] Allergy Intermediate NUMBNESS Unverified 03/10/20 17:05 Penicillins [PENICILLINS] Allergy Intermediate RASH Unverified 03/10/20 17:05 penicillin V Allergy Unknown Verified 01/19/20 00:00 potassium Allergy Unknown Verified 01/19/20 00:00 Active Medications: Current Medications Acetaminophen (Acetaminophen 325 Mg Tablet) 650 mg PO Q6H PRN PRN Reason: Pain, Mild (Pain Scale 1-3) Amlodipine Besylate (Amlodipine Besylate 5 Mg Tablet) 5 mg PO DAILY [facility]; Protocol Clopidogrel Bisulfate (Clopidogrel Bisulfate 75 Mg Tablet) 75 mg PO DAILY [facility] Enoxaparin Sodium (Enoxaparin Sodium 40 Mg/0.4 Ml Syringe) 40 mg SUBCUT Q24H [facility] Furosemide (Furosemide 20 Mg Tablet) 10 mg PO DAILY [facility]; Protocol Doxycycline Hyclate 100 mg/ (Sodium Chloride) 250 mls @ 166.67 mls/hr IV Q12H [facility] Melatonin (Melatonin 3 Mg Tablet) 6 mg PO BEDTIME PRN PRN Reason: Insomnia Ondansetron HCl (Ondansetron Hcl 4 Mg/2 Ml Vial) 4 mg IVPUSH Q8H PRN PRN Reason: Nausea and Vomiting Oxycodone HCl (Oxycodone Hcl Immed Release 5 Mg Tablet) 5 mg PO Q6H PRN PRN Reason: Pain, Severe (Pain Scale 7-10) Pharmacy Consult (Consult Rx Perform Med Rec) 1 each MISCELLANE ONCE PRN PRN Reason: Consult order Pravastatin Sodium (Pravastatin Sodium 40 Mg Tablet) 40 mg PO BEDTIME [facility] Sodium Chloride (0.9 % Sodium Chloride Flush 3 Ml Syringe) 3 ml IVFLUSH QSHIFT [facility] Valsartan (Valsartan 320 Mg Tablet) 320 mg PO DAILY [facility]; Protocol Home Medications Medication Instructions Recorded Confirmed Last Taken Type acetaminophen 500 mg tablet 1 tab PO Q8H PRN Pain 04/10/21 02/13/22 Unknown History amlodipine 5 mg tablet 1 tab PO DAILY 04/10/21 02/13/22 02/12/22 History cholecalciferol (vitamin D3) 25 1 tab PO DAILY 04/10/21 02/13/22 02/12/22 History mcg (1,000 unit) tablet clopidogrel 75 mg tablet 1 tab PO DAILY 04/10/21 02/13/22 02/12/22 History furosemide 20 mg tablet 0.5 tab PO DAILY 04/10/21 02/13/22 02/12/22 History pravastatin 40 mg tablet 1 tab PO BEDTIME 04/10/21 02/13/22 02/12/22 History valsartan 320 mg tablet (Diovan) 1 tab PO DAILY 04/10/21 02/13/22 02/12/22 History Physical Exam Vital Signs and Narrative: Vital Signs: Last Vital Signs Temp 98.6 F 02/13/22 16:46 Pulse 66 02/13/22 16:46 Resp 18 02/13/22 16:46 BP 147/71 H 02/13/22 16:46 Pulse Ox 96 02/13/22 16:46 O2 Del Method 02/13/22 16:46 O2 Flow Rate 2 02/13/22 16:46 BMI result Body Mass Index 29.5 Const: Other: General awake alert x3, in no acute distress. HEENT pupils equal round reactive to light and accommodation Neck supple no JVD, CVS regular rate rhythm, systolic murmur Respiratory lungs clear to auscultation, no respiratory distress, no wheeze, no rhonchi. Gastrointestinal abdomen soft, nontender, bowel sounds audible, no guarding , no rigidity. Extremities no edema. Right lower extremity hyperemia and tenderness to palpation Neuro speech clear, cranial nerves 2-12 intact, no nystagmus, upper extremity strength and tone normal no pronator drift, right lower extremity weakness, decreased sensation. Normal exam left lower extremity Psych appropriate affect Results Labs CBC and Chem 7: 02/13/22 09:10 02/13/22 09:10 Labs: Laboratory Results - last 24 hr 02/13/22 02/13/22 02/13/22 08:51 09:10 09:10 MCV 92.2 MCH 31.5 MCHC 34.2 RDW 12.2 Plt Count 182 MPV 10.4 Immature Gran % (Auto) 1.0 H Neut % (Auto) 79.4 H Lymph % (Auto) 14.0 L [place] % (Auto) 4.9 Eos % (Auto) 0.1 Baso % (Auto) 0.6 Lymph # (Auto) 1.0 L [place] # (Auto) 0.4 Eos # (Auto) 0.0 Baso # (Auto) 0.0 Abs Immat Gran (auto) 0.07 H Absolute Neuts (auto) 5.7 Absolute Nucleated RBC 0.000 Nucleated RBC % (auto) 0.0 PT INR APTT Anion Gap 18 Estim Creat Clear Calc 64.3 Estimated GFR > 60 POC Glucose 175 H Random Glucose 219 H Lactic Acid Lactic Acid F/U @ 2Hr Lactic Acid F/U @ 4Hr Calcium 9.1 Magnesium 1.8 Total Bilirubin 1.0 Direct Bilirubin 0.4 AST 23 ALT 32 H Alkaline Phosphatase 103 B-Natriuretic Peptide Total Protein 7.4 Albumin 4.5 Lipase 16 Urine Color Urine Appearance Urine pH Ur Specific [place] Urine Protein Urine Glucose (UA) Urine Ketones Urine Blood Urine Nitrite Ur Leukocyte Esterase COVID-19 ([facility]) COVID-19 Clin Com 02/13/22 02/13/22 02/13/22 09:10 09:10 09:10 MCV MCH MCHC RDW Plt Count MPV Immature Gran % (Auto) Neut % (Auto) Lymph % (Auto) [place] % (Auto) Eos % (Auto) Baso % (Auto) Lymph # (Auto) [place] # (Auto) Eos # (Auto) Baso # (Auto) Abs Immat Gran (auto) Absolute Neuts (auto) Absolute Nucleated RBC Nucleated RBC % (auto) PT INR APTT Anion Gap Estim Creat Clear Calc Estimated GFR POC Glucose Random Glucose Lactic Acid 2.6 H* Lactic Acid F/U @ 2Hr Lactic Acid F/U @ 4Hr Calcium Magnesium Total Bilirubin Direct Bilirubin AST ALT Alkaline Phosphatase B-Natriuretic Peptide 252 H Total Protein Albumin Lipase Urine Color Urine Appearance Urine pH Ur Specific [place] Urine Protein Urine Glucose (UA) Urine Ketones Urine Blood Urine Nitrite Ur Leukocyte Esterase COVID-19 ([facility]) Negative COVID-19 Clin Com See Note 02/13/22 02/13/22 02/13/22 09:10 11:27 11:55 MCV MCH MCHC RDW Plt Count MPV Immature Gran % (Auto) Neut % (Auto) Lymph % (Auto) [place] % (Auto) Eos % (Auto) Baso % (Auto) Lymph # (Auto) [place] # (Auto) Eos # (Auto) Baso # (Auto) Abs Immat Gran (auto) Absolute Neuts (auto) Absolute Nucleated RBC Nucleated RBC % (auto) PT 12.1 INR 1.1 APTT 27.1 Anion Gap Estim Creat Clear Calc Estimated GFR POC Glucose Random Glucose Lactic Acid Lactic Acid F/U @ 2Hr 2.8 H* Lactic Acid F/U @ 4Hr Calcium Magnesium Total Bilirubin Direct Bilirubin AST ALT Alkaline Phosphatase B-Natriuretic Peptide Total Protein Albumin Lipase Urine Color Yellow Urine Appearance Clear Urine pH 8.0 Ur Specific [place] 1.025 Urine Protein Negative Urine Glucose (UA) 100 H Urine Ketones Trace Urine Blood Negative Urine Nitrite Negative Ur Leukocyte Esterase Negative COVID-19 ([facility]) COVID-19 Clin Com 02/13/22 13:43 MCV MCH MCHC RDW Plt Count MPV Immature Gran % (Auto) Neut % (Auto) Lymph % (Auto) [place] % (Auto) Eos % (Auto) Baso % (Auto) Lymph # (Auto) [place] # (Auto) Eos # (Auto) Baso # (Auto) Abs Immat Gran (auto) Absolute Neuts (auto) Absolute Nucleated RBC Nucleated RBC % (auto) PT INR APTT Anion Gap Estim Creat Clear Calc Estimated GFR POC Glucose Random Glucose Lactic Acid Lactic Acid F/U @ 2Hr Lactic Acid F/U @ 4Hr 3.4 H* Calcium Magnesium Total Bilirubin Direct Bilirubin AST ALT Alkaline Phosphatase B-Natriuretic Peptide Total Protein Albumin Lipase Urine Color Urine Appearance Urine pH Ur Specific [place] Urine Protein Urine Glucose (UA) Urine Ketones Urine Blood Urine Nitrite Ur Leukocyte Esterase COVID-19 ([facility]) COVID-19 Clin Com Imaging Radiologist's Impressions: Impressions Head CT 02/13/22 09:36 IMPRESSION: * No evidence of intracranial hemorrhage or acute major vascular territory infarction. 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 Chest X-Ray 02/13/22 09:40 IMPRESSION: 1. Bilateral low lung volumes with slight accentuation of the pulmonary vasculature. 2. Bibasilar atelectasis. Aorta w/Runoff CTA 02/13/22 10:10 IMPRESSION: Patent abdominopelvic arterial vasculature. There is no opacification of the runoff vessels beyond the level of the distal calf bilaterally. This is most likely related to contrast bolus timing. There are presumed chronic venous stasis changes of the right lower extremity and soft tissue edema. There is an indeterminate 8.4 x 5.2 x 4.4 cm right adnexal lesion which appears relatively homogeneous, likely simple appearing. Follow-up ultrasound for further characterization suggested. Lumbar Spine MRI 02/13/22 13:00 IMPRESSION: Of note there is transitional spinal anatomy at the lumbosacral junction with partial lumbarization of the S1 vertebral segment. There is a well-formed intervertebral disc at S1-S2. There is multilevel degenerative spondylosis of the lumbar spine with grade 1 anterolisthesis of L5 on S1 related to advanced facet degenerative changes at this level. Subarticular zone narrowing at this level causes abutment and possible compression of both traversing S1 nerve roots. Otherwise no substantial mass effect on the traversing or foraminal nerve roots elsewhere within the lumbar spine. There is a nonspecific sclerotic lesion involving the left L3 pedicle. The etiology of this finding is uncertain. The possibility of a sclerotic osseous metastasis cannot be definitively excluded on the basis of this examination. Correlation with prior imaging is therefore recommended if available. Otherwise a whole-body bone scan can be obtained to determine whether there is any osteoblastic activity. Assessment and Plan (1) Acidosis, lactic: Status: Acute (2) Leg weakness: Qualifiers: Laterality: right Qualified Code(s): R29.898 - Other symptoms and signs involving the musculoskeletal system Status: Acute (3) Cellulitis of right lower extremity: Status: Acute Plan 76-year-old female with past medical history of hypertension, hyperlipidemia, diabetes, pulmonary hypertension, asthma, aortic stenosis woke up at 04:00 induced the bathroom and noted numbness and weakness of right foot and developed right-sided back pain therefore came to the ER for evaluation and noted to have right lower extremity weakness, cellulitis and right adnexal mass. Right lower extremity weakness CT head showed no acute abnormality, no other neuro deficit Continue close neuro follow up, obtain neurology consult Place on aspirin continue statin, need good blood pressure and blood sugar control Left L3 pedicle nonspecific sclerotic lesion will discuss further w/u with Neurology Right lower extremity cellulitis IV doxycycline 100 b.i.d., has penicillin allergy No fevers, normal WBC follow clinical course Lactic acidosis question related to cellulitis treat with IV fluids follow lactic acid level, no hypotension no abdominal pain Right sided back/flank pain Right adnexal mass noted on abdominal imaging will obtain pelvic ultrasound, oxycodone 5 mg q.6 hours for pain control, follow clinical course Hypertension continue home medication follow BP Pre diabetic will place on diabetic diet and insulin sliding scale not on home medication DVT prophylaxis on Lovenox Code status full code In my clinical judgment patient will need 2 night inpatient stay for close neurological follow-up and for treatment of lower extremity cellulitis and further workup for adnexal mass and abnormal sclerotic lesion of left L3 pedicle Also requiring IV fluids for lactic acidosis. Quality Stroke Does the patient have a stroke diagnosis?: No VTE Prior VTE?: No VTE Risk Level:: Medical - moderate - high VTE Device Contraindication: Treatment Not Indicated VTE Drug Contraindication: N/A - Med Ordered
[2022-02-13] MEDS: 0.9 % Sodium Chloride 1,000 ML 100 ML IVCONT (18:06)
[2022-02-13 19:14] VITALS: BP 142/64; PULSE 65; RESP 14; TEMP 37.4; O2SAT 97
[2022-02-13] MEDS: Doxycycline Hyclate 100 MG in 0.9 % Sodium Chloride 250 ML 166.67 MG IV (19:17)
[2022-02-13] MEDS: Enoxaparin Sodium 40 MG/0.4 ML SYRINGE SUBCUT (19:17)
[2022-02-13 20:09] LABS: Lactic Acid 2.1 mmol/L (0.5-2.0)
[2022-02-13 20:54] LABS: Reflex Lactate? Lactic Acid Added
[2022-02-13 21:08] LABS: Glucose, Whole Blood 148 mg/dL (60-115)
[2022-02-13] MEDS: Pravastatin Sodium 40 MG TABLET PO (21:09)
[2022-02-13 22:16] LABS: ~Lactic Acid-LAB USE ONLY 1.2 mmol/L (0.5-2.0)
[2022-02-13] MEDS: 0.9 % Sodium Chloride Flush 3 ML SYRINGE IVFLUSH (23:27)
[2022-02-14] MEDS: 0.9 % Sodium Chloride 1,000 ML 100 ML IVCONT (04:06)
[2022-02-14 04:28] VITALS: BP 130/78; PULSE 78; RESP 16; TEMP 37.2; O2SAT 94
[2022-02-14] MEDS: Doxycycline Hyclate 100 MG in 0.9 % Sodium Chloride 250 ML 166.67 MG IV ×2 (05:36→18:41)
[2022-02-14 07:13] LABS: Glucose, Whole Blood 116 mg/dL (60-115)
--- NOTE | 2022-02-14 07:50 | PC.NURSE ---
pt alert and set up with her breakfast matthieu, pt denies pain unless you touch her right leg, right leg is slightly red and warm to touch.
[2022-02-14 08:31] VITALS: BP 145/63; PULSE 60; RESP 16; TEMP 36.9; O2SAT 97
[2022-02-14] MEDS: Furosemide 20 MG TABLET 10 MG PO (10:12)
[2022-02-14] MEDS: Clopidogrel Bisulfate 75 MG TABLET PO (10:12)
[2022-02-14] MEDS: amLODIPine Besylate 5 MG TABLET PO (10:12)
[2022-02-14] MEDS: Valsartan 320 MG TABLET PO (10:12)
[2022-02-14] MEDS: 0.9 % Sodium Chloride Flush 3 ML SYRINGE IVFLUSH ×2 (10:13→22:43)
[2022-02-14] MEDS: oxyCODONE HCl Immed Release 5 MG TABLET PO ×2 (11:08→19:02)
--- NOTE | 2022-02-14 11:08 | PC.NURSE ---
This tech assisted the RN in the patients urine incontinence meng care, pt linens and pads were changed. Pt was placed on a purewick
[2022-02-14 11:51] VITALS: BP 168/76; PULSE 60; RESP 17; O2SAT 96
--- NOTE | 2022-02-14 12:15 | MHC.CM.PN ---
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
[2022-02-14 12:38] LABS: Glucose, Whole Blood 111 mg/dL (60-115)
--- NOTE | 2022-02-14 13:44 | P.CNNE_ITS ---
History of Present Illness Data of Consult Service Date: 02/14/22 Primary Care Provider: Gauri Cardenas MD [facility] Reason for consult: Right leg weakness 76 years old woman with hypertension and obesity who came to hospital with complaint of right foot or leg weakness. I interviewed her with her family nearby as she did not speak Tajik. She was mainly complaining of right leg pain. When asked where the pain was she indicated to lateral part of her thigh. When I tried to touch her leg she shouted when I touched her knee. There was no visible lesion on her knee or thigh. Review of Systems Review of Systems: No history of any recent fall [facility] Past Medical History Medical History Aortic stenosis Asthma Diabetes HTN (hypertension) Hyperlipidemia Pulmonary hypertension Social History Social History Alcohol intake: never Patient Tobacco Use Status: Never used Tobacco Use of substances other than those prescribed or required for medical reasons: No Advance Directives: Yes Advance Directives Information Provided: Yes Advance Directives on File: No service: No Meds Allergies Allergy/AdvReac Type Severity Reaction Status Date / Time aspirin [ASPIRIN] Allergy Intermediate NUMBNESS Unverified 03/10/20 17:05 Penicillins [PENICILLINS] Allergy Intermediate RASH Unverified 03/10/20 17:05 penicillin V Allergy Unknown Verified 01/19/20 00:00 potassium Allergy Unknown Verified 01/19/20 00:00 Active Medications: Current Medications Acetaminophen (Acetaminophen 325 Mg Tablet) 650 mg PO Q6H PRN PRN Reason: Pain, Mild (Pain Scale 1-3) Amlodipine Besylate (Amlodipine Besylate 5 Mg Tablet) 5 mg PO DAILY [facility]; Protocol Last Admin: 02/14/22 10:12 Dose: 5 mg Clopidogrel Bisulfate (Clopidogrel Bisulfate 75 Mg Tablet) 75 mg PO DAILY [facility] Last Admin: 02/14/22 10:12 Dose: 75 mg Dextrose (Dextrose 50 % 25 Gm/50 Ml Syringe) 25 gm IVPUSH Q15M PRN; Protocol PRN Reason: per Hypoglycemia Standing Ord. Enoxaparin Sodium (Enoxaparin Sodium 40 Mg/0.4 Ml Syringe) 40 mg SUBCUT Q24H [facility] Last Admin: 02/13/22 19:17 Dose: 40 mg Furosemide (Furosemide 20 Mg Tablet) 10 mg PO DAILY [facility]; Protocol Last Admin: 02/14/22 10:12 Dose: 10 mg Glucose (Glucose Gel 15 Gm Gel..Gram.) 15 gm PO Q15M PRN; Protocol PRN Reason: per Hypoglycemia Standing Ord. Doxycycline Hyclate 100 mg/ (Sodium Chloride) 250 mls @ 166.67 mls/hr IV Q12H [facility] Last Infusion: 02/14/22 07:29 Dose: Infused Sodium Chloride (Ns) 1,000 mls @ 100 mls/hr IVCONT .Q10H [facility] Last Admin: 02/14/22 04:06 Dose: 100 mls/hr Insulin Human Lispro (Insulin Lispro 100 Unit/Ml 3 Ml Vial) 0 unit SUBCUT QIDACHS [facility]; Protocol Last Admin: 02/14/22 12:35 Dose: Not Given Melatonin (Melatonin 3 Mg Tablet) 6 mg PO BEDTIME PRN PRN Reason: Insomnia Ondansetron HCl (Ondansetron Hcl 4 Mg/2 Ml Vial) 4 mg IVPUSH Q8H PRN PRN Reason: Nausea and Vomiting Oxycodone HCl (Oxycodone Hcl Immed Release 5 Mg Tablet) 5 mg PO Q6H PRN PRN Reason: Pain, Severe (Pain Scale 7-10) Last Admin: 02/14/22 11:08 Dose: 5 mg Pharmacy Consult (Consult Rx Perform Med Rec) 1 each MISCELLANE ONCE PRN PRN Reason: Consult order Pravastatin Sodium (Pravastatin Sodium 40 Mg Tablet) 40 mg PO BEDTIME [facility] Last Admin: 02/13/22 21:09 Dose: 40 mg Sodium Chloride (0.9 % Sodium Chloride Flush 3 Ml Syringe) 3 ml IVFLUSH QSHIFT [facility] Last Admin: 02/14/22 10:13 Dose: 3 ml Valsartan (Valsartan 320 Mg Tablet) 320 mg PO DAILY [facility]; Protocol Last Admin: 02/14/22 10:12 Dose: 320 mg Home Medications Medication Instructions Recorded Confirmed Last Taken Type acetaminophen 500 mg tablet 1 tab PO Q8H PRN Pain 04/10/21 02/13/22 Unknown History amlodipine 5 mg tablet 1 tab PO DAILY 04/10/21 02/13/22 02/12/22 History cholecalciferol (vitamin D3) 25 1 tab PO DAILY 04/10/21 02/13/22 02/12/22 History mcg (1,000 unit) tablet clopidogrel 75 mg tablet 1 tab PO DAILY 04/10/21 02/13/22 02/12/22 History furosemide 20 mg tablet 0.5 tab PO DAILY 04/10/21 02/13/22 02/12/22 History pravastatin 40 mg tablet 1 tab PO BEDTIME 04/10/21 02/13/22 02/12/22 History valsartan 320 mg tablet (Diovan) 1 tab PO DAILY 04/10/21 02/13/22 02/12/22 History Physical Exam Vital Signs: Vital Signs: Last Vital Signs Temp 98.4 F 02/14/22 08:31 Pulse 60 02/14/22 11:51 Resp 17 02/14/22 11:51 BP 168/76 H 02/14/22 11:51 Pulse Ox 96 02/14/22 11:51 O2 Del Method 02/14/22 11:51 O2 Flow Rate 2 02/14/22 11:51 BMI result Body Mass Index 29.5 Neuro: Other: Exam was somewhat limited by sensitivity to touch and pain. He was complaining of pain in her right leg and difficulty lifting it up. She was able to wiggle her toes and right foot and try to lift her right leg up and barely lifted it against gravity. When asked to bend her knee she could not. When I tried to bend she shouted stating that she had pain in knee area. Deep tendon reflexes were absent with flat plantar. There was no obvious weakness of left leg or arms or face. Results Labs CBC & Chem 7: 02/13/22 09:10 02/13/22 09:10 Labs: Noncontrast head CT revealed microvascular ischemic changes in different areas but no obvious acute lesion. Lumbar spine MRI revealed degenerative changes but no definite lesion to explain her symptoms. Assessment and Plan (1) Leg weakness: Qualifiers: Laterality: right Qualified Code(s): R29.898 - Other symptoms and signs involving the musculoskeletal system Status: Acute Unclear etiology of weakness sensitivity and pain of right leg. Examination was limited and somewhat difficult to interpret. Initially she stated that pain was on lateral part of leg but then she indicated to her knee. Weakness was likely due to pain. Possible explanations included hip fracture for which I would suggest obtaining a simple x-ray, or radiculopathy from her back problems. A sclerotic lesion was noted on MRI raising possibility of metastatic disease. I would suggest starting with x-ray of her hip area to rule out any lesion explaining pain. Procedures Date of Service Date of Service: 02/14/22
--- NOTE | 2022-02-14 15:22 | P.PNIM_ITS ---
Subjective Subjective Date of Service: 02/14/22 Interval History: patient complaining of persistent right leg pain and weakness, history obtained via resolution agent, patient denies nausea vomiting abdominal pain denies fever chills was ambulating with a cane up until yesterday morning, with no prior history of right flank pain, daughter at bedside agreed with patient's history, patient denies urinary symptoms of urgency frequency, no falls, no trauma. Review of Systems [employer] WORK[employer] no headache no dizziness CVS no chest pain, no palpitation GI no nausea no vomiting Review of Systems: Yes all other systems are reviewed and are negative Physical Exam Vital Signs: Vital Signs: Last Vital Signs Temp 98.4 F 02/14/22 08:31 Pulse 60 02/14/22 11:51 Resp 17 02/14/22 11:51 BP 168/76 H 02/14/22 11:51 Pulse Ox 96 02/14/22 11:51 O2 Del Method 02/14/22 11:51 O2 Flow Rate 2 02/14/22 11:51 BMI result Body Mass Index 29.5 Const: Other: General awake alert x3, in no acute distress.? HEENT pupils equal round reactive to light and accommodation Neck supple no JVD, CVS? regular rate rhythm, systolic murmur Respiratory lungs clear to auscultation, no respiratory distress, no wheeze, no rhonchi. Gastrointestinal abdomen soft, nontender, bowel sounds audible, no guarding , no rigidity. right lower back pain with palpation Extremities no edema.? Right lower extremity less redness to right lower leg, persistent tenderness to palpation, limited range of motion right ankle knee and hip Neuro? speech clear, cranial nerves 2-12 intact, no nystagmus, upper extremity strength and tone normal no pronator drift, right lower extremity weakness, decreased sensation to touch.? Normal exam left lower extremity Psych appropriate affect Objective Data Active Medications Acetaminophen (Acetaminophen 325 Mg Tablet) 650 mg PO Q6H PRN PRN Reason: Pain, Mild (Pain Scale 1-3) Amlodipine Besylate (Amlodipine Besylate 5 Mg Tablet) 5 mg PO DAILY [facility]; Protocol Last Admin: 02/14/22 10:12 Dose: 5 mg Documented By: TASHIA Clopidogrel Bisulfate (Clopidogrel Bisulfate 75 Mg Tablet) 75 mg PO DAILY [facility] Last Admin: 02/14/22 10:12 Dose: 75 mg Documented By: TASHIA Dextrose (Dextrose 50 % 25 Gm/50 Ml Syringe) 25 gm IVPUSH Q15M PRN; Protocol PRN Reason: per Hypoglycemia Standing Ord. Enoxaparin Sodium (Enoxaparin Sodium 40 Mg/0.4 Ml Syringe) 40 mg SUBCUT Q24H [facility] Last Admin: 02/13/22 19:17 Dose: 40 mg Documented By: USMAN Furosemide (Furosemide 20 Mg Tablet) 10 mg PO DAILY [facility]; Protocol Last Admin: 02/14/22 10:12 Dose: 10 mg Documented By: TASHIA Glucose (Glucose Gel 15 Gm Gel..Gram.) 15 gm PO Q15M PRN; Protocol PRN Reason: per Hypoglycemia Standing Ord. Doxycycline Hyclate 100 mg/ (Sodium Chloride) 250 mls @ 166.67 mls/hr IV Q12H [facility] Last Infusion: 02/14/22 07:29 Dose: 0 mls/hr Documented By: TASHIA Sodium Chloride (Ns) 1,000 mls @ 100 mls/hr IVCONT .Q10H [facility] Last Admin: 02/14/22 04:06 Dose: 100 mls/hr Documented By: TERRELL Insulin Human Lispro (Insulin Lispro 100 Unit/Ml 3 Ml Vial) 0 unit SUBCUT QIDACHS [facility]; Protocol Last Admin: 02/14/22 12:35 Dose: Not Given Documented By: BHARAT Non-Admin Reason: No Insulin Coverage Melatonin (Melatonin 3 Mg Tablet) 6 mg PO BEDTIME PRN PRN Reason: Insomnia Ondansetron HCl (Ondansetron Hcl 4 Mg/2 Ml Vial) 4 mg IVPUSH Q8H PRN PRN Reason: Nausea and Vomiting Oxycodone HCl (Oxycodone Hcl Immed Release 5 Mg Tablet) 5 mg PO Q6H PRN PRN Reason: Pain, Severe (Pain Scale 7-10) Last Admin: 02/14/22 11:08 Dose: 5 mg Documented By: TASHIA Pharmacy Consult (Consult Rx Perform Med Rec) 1 each MISCELLANE ONCE PRN PRN Reason: Consult order Pravastatin Sodium (Pravastatin Sodium 40 Mg Tablet) 40 mg PO BEDTIME [facility] Last Admin: 02/13/22 21:09 Dose: 40 mg Documented By: USMAN Sodium Chloride (0.9 % Sodium Chloride Flush 3 Ml Syringe) 3 ml IVFLUSH QSHIFT [facility] Last Admin: 02/14/22 10:13 Dose: 3 ml Documented By: TASHIA Valsartan (Valsartan 320 Mg Tablet) 320 mg PO DAILY [facility]; Protocol Last Admin: 02/14/22 10:12 Dose: 320 mg Documented By: TASHIA Labs CBC & Chem 7: 02/13/22 09:10 02/13/22 09:10 Labs: Laboratory Results - last 24 hr 02/13/22 02/13/22 02/13/22 18:50 21:03 21:57 POC Glucose 148 H Lactic Acid 2.1 H* Lactic Acid F/U @ 2Hr 1.2 02/14/22 02/14/22 07:09 12:33 POC Glucose 116 H 111 Lactic Acid Lactic Acid F/U @ 2Hr Assessment and Plan (1) Cellulitis of right lower extremity: Status: Acute (2) Acidosis, lactic: Status: Acute (3) Leg weakness: Status: Acute Plan 76-year-old female with past medical history of hypertension, hyperlipidemia, diabetes, pulmonary hypertension, asthma, aortic stenosis woke up at 04:00 induced the bathroom and noted numbness and weakness of right foot and developed right-sided back pain therefore came to the ER for evaluation and noted to have right lower extremity weakness, cellulitis and right adnexal mass. Right lower extremity weakness/pain CT head showed no acute abnormality, no other neuro deficit Continue close neuro follow up continue aspirin and statin seen by neurology they recommend to rule out hip fracture therefore will obtain x-ray right hip, continue close neurological followup, Left L3 pedicle nonspecific sclerotic lesion radiology recommend whole body scan, will discuss further w/u with Neurology. Right lower extremity cellulitis continue IV doxycycline 100 b.i.d., day 2, less hyperemia, has penicillin allergy No fevers, normal WBC , blood cultures x2 pending,follow clinical course Lactic acidosis question related to cellulitis now normalized DC IV fluids, no hypotension no abdominal pain Right sided back/flank pain Right adnexal mass noted on abdominal imaging, obtain pelvic ultrasound that showed 8 cm right adnexal cyst likely ovarian/ paraovarian case discussed with Dr. Nava he feels it is a simple cyst and less than 10 cm therefore less than 1% chance of ovarian cancer he recommend outpatient follow-up, he recommend to hold CA 125 testing since it could be falsely elevated due to acute illness, c ont.oxycodone 5 mg q.6 hours for pain control, follow clinical course Hypertension continue home medication follow BP Pre diabetic on diabetic diet and insulin sliding scale not on home medication DVT prophylaxis on Lovenox Code status full code In my clinical judgment patient will need continue inpatient hospitalization due to persistent right lower extremity weakness and pain need further workup Quality Stroke Does the patient have a stroke diagnosis?: No VTE Prior VTE?: No VTE Risk Level:: Medical - moderate - high VTE Device Contraindication: Treatment Not Indicated VTE Drug Contraindication: N/A - Med Ordered
[2022-02-14 18:38] VITALS: BP 168/92; PULSE 70; RESP 20; TEMP 36.8; O2SAT 98
--- NOTE | 2022-02-14 18:58 | PC.NURSE ---
Provider notified of BP
[2022-02-14] MEDS: Enoxaparin Sodium 40 MG/0.4 ML SYRINGE SUBCUT (19:02)
[2022-02-14 20:00] VITALS: BP 181/82; PULSE 63; RESP 18; TEMP 37.3; O2SAT 95
[2022-02-14 20:18] LABS: Glucose, Whole Blood 126 mg/dL (60-115)
[2022-02-14 20:54] VITALS: BP 145/80
[2022-02-14 20:54] LABS: Glucose, Whole Blood 147 mg/dL (60-115)
[2022-02-14] MEDS: Pravastatin Sodium 40 MG TABLET PO (22:43)
[2022-02-15] VITALS: BP 138/73; PULSE 57; RESP 20; TEMP 36.3; O2SAT 95
[2022-02-15 04:00] VITALS: BP 146/76; PULSE 60; RESP 16; TEMP 36.4; O2SAT 95
[2022-02-15] MEDS: Doxycycline Hyclate 100 MG in 0.9 % Sodium Chloride 250 ML 166.67 MG IV ×2 (05:16→17:13)
[2022-02-15 07:36] VITALS: BP 147/98; PULSE 64; RESP 16; TEMP 36.6; O2SAT 95
[2022-02-15 08:00] LABS: Glucose, Whole Blood 127 mg/dL (60-115)
[2022-02-15] MEDS: 0.9 % Sodium Chloride Flush 3 ML SYRINGE IVFLUSH ×3 (08:03→20:29)
[2022-02-15] MEDS: Valsartan 320 MG TABLET PO (08:03)
[2022-02-15] MEDS: oxyCODONE HCl Immed Release 5 MG TABLET PO ×3 (08:03→22:28)
[2022-02-15] MEDS: Furosemide 20 MG TABLET 10 MG PO (08:03)
[2022-02-15] MEDS: amLODIPine Besylate 5 MG TABLET PO (08:03)
[2022-02-15] MEDS: Clopidogrel Bisulfate 75 MG TABLET PO (08:04)
[2022-02-15 11:36] VITALS: BP 114/58; PULSE 65; RESP 16; TEMP 36.6; O2SAT 95
[2022-02-15 11:44] LABS: Glucose, Whole Blood 188 mg/dL (60-115)
[2022-02-15] MEDS: Insulin Lispro 100 UNIT/ML 3 ML VIAL SUBCUT (12:46)
--- NOTE | 2022-02-15 14:59 | HO.PM.IMPN ---
Subjective Subjective Date of Service: 02/15/22 Interval History: Seen and examined this morning History obtained with the assistance of classification control clerk. Patient is vague historian reporting some abdominal tenderness with light palpation which says is from the probe from her ultrasound She has not had any nausea or vomiting She reports pain in her right leg, seems to be in her lower leg where her area of cellulitis is but she also describes ?numbness? of her right hip area but when asked if she can feel palpation in that area she states that she can Review of Systems Review of Systems: Yes all other systems are reviewed and are negative Constitutional Constitutional: Denies chills and Denies fever(s) Physical Exam Vital Signs: Vital Signs: Last Vital Signs Temp 97.8 F 02/15/22 11:36 Pulse 65 02/15/22 11:36 Resp 16 02/15/22 11:36 BP 114/58 L 02/15/22 11:36 Pulse Ox 95 02/15/22 11:36 O2 Del Method 02/15/22 11:36 O2 Flow Rate 2 02/15/22 11:36 BMI result Body Mass Index 29.5 Const: General: cooperative, comfortable, alert and awake Nutritional Appearance: overweight Orientation/consciousness: patient oriented x3 Resp: Effort & Inspection: normal respiratory effort and able to speak in complete sentences Auscultation: clear to auscultation bilaterally Cardio: Rate: regular rate Heart sounds: S1 normal heart sound present and S2 normal heart sound present GI: Other: Soft, positive bowel sounds. Reports ?pain? with very gentle palpation of the right lower quadrant and she states the pain is in her skin Inspection: No distended Palpation (GI): Soft to palpation Skin: Other: RLE erythema resolved, process tank tender anterior hill Neuro: General: patient oriented x3 and CN's II-XI intact bilaterally Cranial nerves: Yes Midline tongue present Motor exam (neuro): Pronator motor function not present Extrem: Other: limited ROM at right ankle, knee and hip reports numb right hip but able to feel sensation General: Yes no pedal edema Objective Data Active Medications Acetaminophen (Acetaminophen 325 Mg Tablet) 650 mg PO Q6H PRN PRN Reason: Pain, Mild (Pain Scale 1-3) Amlodipine Besylate (Amlodipine Besylate 5 Mg Tablet) 5 mg PO DAILY [facility]; Protocol Last Admin: 02/15/22 08:03 Dose: 5 mg Documented By: PERRI Clopidogrel Bisulfate (Clopidogrel Bisulfate 75 Mg Tablet) 75 mg PO DAILY [facility] Last Admin: 02/15/22 08:04 Dose: 75 mg Documented By: PERRI Dextrose (Dextrose 50 % 25 Gm/50 Ml Syringe) 25 gm IVPUSH Q15M PRN; Protocol PRN Reason: per Hypoglycemia Standing Ord. Enoxaparin Sodium (Enoxaparin Sodium 40 Mg/0.4 Ml Syringe) 40 mg SUBCUT Q24H [facility] Last Admin: 02/14/22 19:02 Dose: 40 mg Documented By: BHARAT Furosemide (Furosemide 20 Mg Tablet) 10 mg PO DAILY [facility]; Protocol Last Admin: 02/15/22 08:03 Dose: 10 mg Documented By: PERRI Glucose (Glucose Gel 15 Gm Gel..Gram.) 15 gm PO Q15M PRN; Protocol PRN Reason: per Hypoglycemia Standing Ord. Doxycycline Hyclate 100 mg/ (Sodium Chloride) 250 mls @ 166.67 mls/hr IV Q12H [facility] Last Infusion: 02/15/22 07:06 Dose: 0 mls/hr Documented By: CESAR Insulin Human Lispro (Insulin Lispro 100 Unit/Ml 3 Ml Vial) 0 unit SUBCUT QIDACHS [facility]; Protocol Last Admin: 02/15/22 12:46 Dose: 2 unit Documented By: PERRI Melatonin (Melatonin 3 Mg Tablet) 6 mg PO BEDTIME PRN PRN Reason: Insomnia Ondansetron HCl (Ondansetron Hcl 4 Mg/2 Ml Vial) 4 mg IVPUSH Q8H PRN PRN Reason: Nausea and Vomiting Oxycodone HCl (Oxycodone Hcl Immed Release 5 Mg Tablet) 5 mg PO Q6H PRN PRN Reason: Pain, Severe (Pain Scale 7-10) Last Admin: 02/15/22 08:03 Dose: 5 mg Documented By: PERRI Pharmacy Consult (Consult Rx Perform Med Rec) 1 each MISCELLANE ONCE PRN PRN Reason: Consult order Pravastatin Sodium (Pravastatin Sodium 40 Mg Tablet) 40 mg PO BEDTIME [facility] Last Admin: 02/14/22 22:43 Dose: 40 mg Documented By: CESAR Sodium Chloride (0.9 % Sodium Chloride Flush 3 Ml Syringe) 3 ml IVFLUSH QSHIFT [facility] Last Admin: 02/15/22 08:03 Dose: 3 ml Documented By: PERRI Valsartan (Valsartan 320 Mg Tablet) 320 mg PO DAILY [facility]; Protocol Last Admin: 02/15/22 08:03 Dose: 320 mg Documented By: PERRI Labs CBC & Chem 7: 02/13/22 09:10 02/13/22 09:10 Labs: Laboratory Results - last 24 hr 02/14/22 02/14/22 02/15/22 18:26 20:41 07:56 POC Glucose 126 H 147 H 127 H 02/15/22 11:40 POC Glucose 188 H Microbiology Microbiology Results: Microbiology 02/13/22 15:35 Blood Culture - Preliminary Blood - Venous No growth after 24 hours. 02/13/22 15:35 Blood Culture - Preliminary Blood - Venous No growth after 24 hours. Assessment and Plan (1) Cellulitis of right lower extremity: Status: Acute Plan 76-year-old female with past medical history of hypertension, hyperlipidemia, diabetes, pulmonary hypertension, asthma, aortic stenosis woke up at 04:00 induced the bathroom and noted numbness and weakness of right foot and developed right-sided back pain therefore came to the ER for evaluation and noted to have right lower extremity weakness, cellulitis and right adnexal mass. Right lower extremity weakness/pain CT head showed no acute abnormality, no other neuro deficit hip xray negative for fracture seen by neurology they recommend to rule out hip fracture therefore will obtain x-ray right hip, since xray negative, recommend to obtain MRI brain to rule out stroke continue aspirin and statin Left L3 pedicle nonspecific sclerotic lesion radiology recommend whole body scan, if brain MRI negative will continue Right lower extremity cellulitis continue IV doxycycline 100 b.i.d., day 3, has penicillin allergy No fevers, normal WBC , blood cultures x2 pending,follow clinical course Lactic acidosis question related to cellulitis now normalized DC IV fluids, no hypotension no abdominal pain Right sided back/flank pain Right adnexal mass noted on abdominal imaging, obtain pelvic ultrasound that showed 8 cm right adnexal cyst likely ovarian/ paraovarian case discussed with Dr. Nava he feels it is a simple cyst and less than 10 cm therefore less than 1% chance of ovarian cancer he recommend outpatient follow-up, he recommend to hold CA 125 testing since it could be falsely elevated due to acute illness, cont.oxycodone 5 mg q.6 hours for pain control, follow clinical course Hypertension continue valsartan, Norvasc, lasix Pre diabetic on diabetic diet and insulin sliding scale not on home medication DVT prophylaxis on Lovenox Code status full code Attending-Dr. Thornton Requires ongoing inpatient hospitalization due to workup for right lower extremity weakness/pain Quality Stroke Does the patient have a stroke diagnosis?: No VTE Prior VTE?: No VTE Risk Level:: Medical - moderate - high VTE Device Contraindication: Treatment Not Indicated VTE Drug Contraindication: N/A - Med Ordered
[2022-02-15 15:12] VITALS: BP 155/71; PULSE 68; RESP 18; TEMP 36.9; O2SAT 95
[2022-02-15 16:31] LABS: Glucose, Whole Blood 140 mg/dL (60-115)
[2022-02-15 19:18] VITALS: BP 141/76; PULSE 85; RESP 18; TEMP 36.6; O2SAT 96
[2022-02-15 20:14] LABS: Glucose, Whole Blood 148 mg/dL (60-115)
[2022-02-15] MEDS: Enoxaparin Sodium 40 MG/0.4 ML SYRINGE SUBCUT (20:25)
[2022-02-15] MEDS: Pravastatin Sodium 40 MG TABLET PO (20:25)
[2022-02-15] MEDS: Docusate Sodium 100 MG CAPSULE PO (20:25)
[2022-02-15] MEDS: Acetaminophen 325 MG TABLET 650 MG PO (22:28)
[2022-02-15] MEDS: polyethylene glycoL 3350 17 GM POWD.PACK PO (22:31)
[2022-02-16] VITALS (7 sets, daily range): BP systolic 132–168; BP diastolic 67–92; PULSE 66–85; RESP 16–20; TEMP 36.1–37; O2SAT 93–95
[2022-02-16] MEDS: Doxycycline Hyclate 100 MG in 0.9 % Sodium Chloride 250 ML 166.67 MG IV ×2 (05:44→19:23)
[2022-02-16] MEDS: Milk of Magnesia 30 ML ORAL.SUSP 15 ML PO (05:44)
[2022-02-16 07:24] LABS: Glucose, Whole Blood 150 mg/dL (60-115)
[2022-02-16] MEDS: amLODIPine Besylate 5 MG TABLET PO (09:07)
[2022-02-16] MEDS: Acetaminophen 325 MG TABLET 650 MG PO ×2 (09:07→15:56)
[2022-02-16] MEDS: Valsartan 320 MG TABLET PO (09:07)
[2022-02-16] MEDS: 0.9 % Sodium Chloride Flush 3 ML SYRINGE IVFLUSH ×2 (09:21→16:00)
[2022-02-16] MEDS: Furosemide 20 MG TABLET 10 MG PO (09:46)
--- NOTE | 2022-02-16 11:08 | MHC.CM.PN ---
Per ROUNDS discussion, Patient is not yet medically cleared for dc (IV Doxycycline); PT is recommending STR and CM will continue to follow.
--- NOTE | 2022-02-16 11:46 | PM.NEUROCN ---
History of Present Illness Data of Consult Service Date: 02/16/22 Primary Care Provider: Gauri Cardenas MD [facility] Reason for consult: Right leg weakness 76 years old woman with atypical presentation of right leg weakness. I saw her in emergency room and examine her again today. She was sitting in a chair seemed much better and not in any distress until I touched her right leg and she again started morning. Her imaging has not reveal any pelvic area lesion or fracture. There was no knee swelling. Brain MRI has not reveal any acute stroke. [facility] Past Medical History Medical History Aortic stenosis Asthma Diabetes HTN (hypertension) Hyperlipidemia Pulmonary hypertension Social History Social History Household Members: Family Housing: House Do you presently have visiting nurse or other home services: Yes Alcohol intake: never Patient Tobacco Use Status: Never used Tobacco Advance Directives Date on File: 02/14/22 service: No Meds Allergies Allergy/AdvReac Type Severity Reaction Status Date / Time aspirin [ASPIRIN] Allergy Intermediate NUMBNESS Unverified 03/10/20 17:05 Penicillins [PENICILLINS] Allergy Intermediate RASH Unverified 03/10/20 17:05 penicillin V Allergy Unknown Verified 01/19/20 00:00 potassium Allergy Unknown Verified 01/19/20 00:00 Active Medications: Current Medications Acetaminophen (Acetaminophen 325 Mg Tablet) 650 mg PO Q6H PRN PRN Reason: Pain, Mild (Pain Scale 1-3) Last Admin: 02/16/22 09:07 Dose: 650 mg Amlodipine Besylate (Amlodipine Besylate 5 Mg Tablet) 5 mg PO DAILY [facility]; Protocol Last Admin: 02/16/22 09:07 Dose: 5 mg Clopidogrel Bisulfate (Clopidogrel Bisulfate 75 Mg Tablet) 75 mg PO DAILY [facility] Last Admin: 02/15/22 08:04 Dose: 75 mg Dextrose (Dextrose 50 % 25 Gm/50 Ml Syringe) 25 gm IVPUSH Q15M PRN; Protocol PRN Reason: per Hypoglycemia Standing Ord. Docusate Sodium (Docusate Sodium 100 Mg Capsule) 100 mg PO BEDTIME [facility] Last Admin: 02/15/22 20:25 Dose: 100 mg Enoxaparin Sodium (Enoxaparin Sodium 40 Mg/0.4 Ml Syringe) 40 mg SUBCUT Q24H [facility] Last Admin: 02/15/22 20:25 Dose: 40 mg Furosemide (Furosemide 20 Mg Tablet) 10 mg PO DAILY [facility]; Protocol Last Admin: 02/16/22 09:46 Dose: 10 mg Glucose (Glucose Gel 15 Gm Gel..Gram.) 15 gm PO Q15M PRN; Protocol PRN Reason: per Hypoglycemia Standing Ord. Doxycycline Hyclate 100 mg/ (Sodium Chloride) 250 mls @ 166.67 mls/hr IV Q12H [facility] Last Infusion: 02/16/22 07:18 Dose: Infused Insulin Human Lispro (Insulin Lispro 100 Unit/Ml 3 Ml Vial) 0 unit SUBCUT QIDACHS [facility]; Protocol Last Admin: 02/16/22 07:45 Dose: Not Given Melatonin (Melatonin 3 Mg Tablet) 6 mg PO BEDTIME PRN PRN Reason: Insomnia Ondansetron HCl (Ondansetron Hcl 4 Mg/2 Ml Vial) 4 mg IVPUSH Q8H PRN PRN Reason: Nausea and Vomiting Oxycodone HCl (Oxycodone Hcl Immed Release 5 Mg Tablet) 5 mg PO Q6H PRN PRN Reason: Pain, Severe (Pain Scale 7-10) Last Admin: 02/15/22 22:28 Dose: 5 mg Pharmacy Consult (Consult Rx Perform Med Rec) 1 each MISCELLANE ONCE PRN PRN Reason: Consult order Polyethylene Glycol (Polyethylene Glycol 3350 17 Gm Powd.Pack) 17 gm PO DAILY PRN PRN Reason: Constipation Last Admin: 02/15/22 22:31 Dose: 17 gm Pravastatin Sodium (Pravastatin Sodium 40 Mg Tablet) 40 mg PO BEDTIME [facility] Last Admin: 02/15/22 20:25 Dose: 40 mg Sodium Chloride (0.9 % Sodium Chloride Flush 3 Ml Syringe) 3 ml IVFLUSH QSHIFT [facility] Last Admin: 02/16/22 09:21 Dose: 3 ml Valsartan (Valsartan 320 Mg Tablet) 320 mg PO DAILY [facility]; Protocol Last Admin: 02/16/22 09:07 Dose: 320 mg Home Medications Medication Instructions Recorded Confirmed Last Taken Type acetaminophen 500 mg tablet 1 tab PO Q8H PRN Pain 04/10/21 02/13/22 Unknown History amlodipine 5 mg tablet 1 tab PO DAILY 04/10/21 02/13/22 02/12/22 History cholecalciferol (vitamin D3) 25 1 tab PO DAILY 04/10/21 02/13/22 02/12/22 History mcg (1,000 unit) tablet clopidogrel 75 mg tablet 1 tab PO DAILY 04/10/21 02/13/22 02/12/22 History furosemide 20 mg tablet 0.5 tab PO DAILY 04/10/21 02/13/22 02/12/22 History pravastatin 40 mg tablet 1 tab PO BEDTIME 04/10/21 02/13/22 02/12/22 History valsartan 320 mg tablet (Diovan) 1 tab PO DAILY 04/10/21 02/13/22 02/12/22 History Physical Exam Vital Signs: Vital Signs: Last Vital Signs Temp 97.5 F 02/16/22 08:00 Pulse 75 02/16/22 11:06 Resp 20 02/16/22 08:00 BP 168/92 H 02/16/22 11:06 Pulse Ox 95 02/16/22 11:06 O2 Del Method 02/16/22 08:00 O2 Flow Rate 2 02/16/22 08:00 BMI result Body Mass Index 29.5 Neuro: Other: Alert and awake with normal spontaneity of speech fluency comprehension and affect until I examine her and she started moaning. She was able to lift her right leg up against gravity. Deep tendon reflexes were absent. Plantar was flexor. Results Labs CBC & Chem 7: 02/13/22 09:10 02/13/22 09:10 Labs: X-ray of right hip an MRI of brain did not reveal any acute pathology. Microbiology Microbiology Results: Microbiology 02/13/22 15:35 Blood - Venous Blood Culture - Preliminary No growth after 48 hours. 02/13/22 15:35 Blood - Venous Blood Culture - Preliminary No growth after 48 hours. Assessment and Plan (1) Leg weakness: Qualifiers: Laterality: right Qualified Code(s): R29.898 - Other symptoms and signs involving the musculoskeletal system Status: Acute Again noted is somewhat atypical presentation of right leg weakness. Examination was again somewhat limited as even light touch to her knee resulted in discomfort for her. I did not find any obvious upper motor neuron sign. Reflexes were absent, which was likely a chronic problem. X-ray did not reveal any fracture an MRI of brain did not reveal any stroke of acute nature to explain leg weakness. Lumbar spine MRI has revealed radicular compression at lower root levels that might explain her symptoms. If possible, I would suggest giving a dose of Solu-Medrol 500-1000 mg to see if that would improve her symptoms. If that would be the case, short course of prednisone could be given afterwards. Otherwise PT OT consultation is recommended Procedures Date of Service Date of Service: 02/16/22
--- NOTE | 2022-02-16 12:54 | HO.PM.IMPN ---
Subjective Subjective Date of Service: 02/16/22 Interval History: Seen and examined this morning Follow-up for right leg weakness, right leg pain Reporting some ?numbness? and right hip again in some in leg. Still with pain on palpation Review of Systems Review of Systems: Yes all other systems are reviewed and are negative Constitutional Constitutional: Denies chills and Denies fever(s) Cardiovascular Cardiovascular: Denies chest pain, Denies palpitations and Denies dyspnea Respiratory Respiratory: Reports cough and Denies dyspnea Gastrointestinal Gastrointestinal: Denies diarrhea, Reports nausea and Denies vomiting Endocrine Endocrine: Denies palpitations Physical Exam Vital Signs: Vital Signs: Last Vital Signs Temp 97.5 F 02/16/22 08:00 Pulse 75 02/16/22 11:06 Resp 20 02/16/22 08:00 BP 168/92 H 02/16/22 11:06 Pulse Ox 95 02/16/22 11:06 O2 Del Method 02/16/22 08:00 O2 Flow Rate 2 02/16/22 08:00 BMI result Body Mass Index 29.5 Const: General: cooperative, comfortable, alert and awake Nutritional Appearance: overweight Orientation/consciousness: patient oriented x3 Resp: Effort & Inspection: normal respiratory effort and able to speak in complete sentences Auscultation: clear to auscultation bilaterally Cardio: Rate: regular rate Heart sounds: S1 normal heart sound present and S2 normal heart sound present GI: Other: Soft, positive bowel sounds. Reports ?pain? with very gentle palpation of the right lower quadrant and she states the pain is in her skin Inspection: No distended Palpation (GI): Soft to palpation Skin: Other: RLE erythema resolved, carbonation equipment tender anterior hill Neuro: General: patient oriented x3 and CN's II-XI intact bilaterally Cranial nerves: Yes Midline tongue present Motor exam (neuro): Pronator motor function not present Extrem: Other: limited ROM at right ankle, knee and hip reports numb right hip but able to feel sensation General: Yes no pedal edema Objective Data Active Medications Acetaminophen (Acetaminophen 325 Mg Tablet) 650 mg PO Q6H PRN PRN Reason: Pain, Mild (Pain Scale 1-3) Last Admin: 02/16/22 09:07 Dose: 650 mg Documented By: ESHA Amlodipine Besylate (Amlodipine Besylate 5 Mg Tablet) 5 mg PO DAILY [facility]; Protocol Last Admin: 02/16/22 09:07 Dose: 5 mg Documented By: ESHA Clopidogrel Bisulfate (Clopidogrel Bisulfate 75 Mg Tablet) 75 mg PO DAILY [facility] Last Admin: 02/15/22 08:04 Dose: 75 mg Documented By: PERRI Dextrose (Dextrose 50 % 25 Gm/50 Ml Syringe) 25 gm IVPUSH Q15M PRN; Protocol PRN Reason: per Hypoglycemia Standing Ord. Docusate Sodium (Docusate Sodium 100 Mg Capsule) 100 mg PO BEDTIME [facility] Last Admin: 02/15/22 20:25 Dose: 100 mg Documented By: XU Enoxaparin Sodium (Enoxaparin Sodium 40 Mg/0.4 Ml Syringe) 40 mg SUBCUT Q24H [facility] Last Admin: 02/15/22 20:25 Dose: 40 mg Documented By: XU Furosemide (Furosemide 20 Mg Tablet) 10 mg PO DAILY [facility]; Protocol Last Admin: 02/16/22 09:46 Dose: 10 mg Documented By: ESHA Glucose (Glucose Gel 15 Gm Gel..Gram.) 15 gm PO Q15M PRN; Protocol PRN Reason: per Hypoglycemia Standing Ord. Doxycycline Hyclate 100 mg/ (Sodium Chloride) 250 mls @ 166.67 mls/hr IV Q12H [facility] Last Infusion: 02/16/22 07:18 Dose: 0 mls/hr Documented By: XU Methylprednisolone Sodium Succinate 1,000 mg/ Sodium Chloride 66 mls @ 66 mls/hr IV ONCE ONE Stop: 02/16/22 13:29 Insulin Human Lispro (Insulin Lispro 100 Unit/Ml 3 Ml Vial) 0 unit SUBCUT QIDACHS [facility]; Protocol Last Admin: 02/16/22 07:45 Dose: Not Given Documented By: ESHA Non-Admin Reason: No Insulin Coverage Melatonin (Melatonin 3 Mg Tablet) 6 mg PO BEDTIME PRN PRN Reason: Insomnia Ondansetron HCl (Ondansetron Hcl 4 Mg/2 Ml Vial) 4 mg IVPUSH Q8H PRN PRN Reason: Nausea and Vomiting Oxycodone HCl (Oxycodone Hcl Immed Release 5 Mg Tablet) 5 mg PO Q6H PRN PRN Reason: Pain, Severe (Pain Scale 7-10) Last Admin: 02/15/22 22:28 Dose: 5 mg Documented By: XU Pharmacy Consult (Consult Rx Perform Med Rec) 1 each MISCELLANE ONCE PRN PRN Reason: Consult order Polyethylene Glycol (Polyethylene Glycol 3350 17 Gm Powd.Pack) 17 gm PO DAILY PRN PRN Reason: Constipation Last Admin: 02/15/22 22:31 Dose: 17 gm Documented By: XU Pravastatin Sodium (Pravastatin Sodium 40 Mg Tablet) 40 mg PO BEDTIME [facility] Last Admin: 02/15/22 20:25 Dose: 40 mg Documented By: XU Sodium Chloride (0.9 % Sodium Chloride Flush 3 Ml Syringe) 3 ml IVFLUSH QSHIFT [facility] Last Admin: 02/16/22 09:21 Dose: 3 ml Documented By: ESHA Valsartan (Valsartan 320 Mg Tablet) 320 mg PO DAILY [facility]; Protocol Last Admin: 02/16/22 09:07 Dose: 320 mg Documented By: ESHA Labs CBC & Chem 7: 02/13/22 09:10 02/13/22 09:10 Labs: Laboratory Results - last 24 hr 02/15/22 02/15/22 02/16/22 16:25 20:10 07:21 POC Glucose 140 H 148 H 150 H Microbiology Microbiology Results: Microbiology 02/13/22 15:35 Blood Culture - Preliminary Blood - Venous No growth after 48 hours. 02/13/22 15:35 Blood Culture - Preliminary Blood - Venous No growth after 48 hours. Assessment and Plan (1) Cellulitis of right lower extremity: Status: Acute (2) Leg weakness: Status: Acute Plan 76-year-old female with past medical history of hypertension, hyperlipidemia, diabetes, pulmonary hypertension, asthma, aortic stenosis woke up at 04:00 induced the bathroom and noted numbness and weakness of right foot and developed right-sided back pain therefore came to the ER for evaluation and noted to have right lower extremity weakness, cellulitis and right adnexal mass. Right lower extremity weakness/pain CT head showed no acute abnormality, no other neuro deficit hip xray negative for fracture seen by neurology they recommend to rule out hip fracture therefore will obtain x-ray right hip, since xray negative, recommend to obtain MRI brain to rule out stroke continue aspirin and statin Left L3 pedicle nonspecific sclerotic lesion -recommend outpatient bone scan Brain MRI negative for acute stroke Thoracic spine MRI pending Re-evaluated by Neurology, recommend high-dose steroids today and pulse of prednisone if improvement in symptoms Right lower extremity cellulitis continue IV doxycycline 100 b.i.d., day 4, has penicillin allergy No fevers, normal WBC , blood cultures x2 negative ,follow clinical course Lactic acidosis question related to cellulitis now normalized DC IV fluids, no hypotension Right sided back/flank pain Right adnexal mass noted on abdominal imaging, obtain pelvic ultrasound that showed 8 cm right adnexal cyst likely ovarian/ paraovarian case discussed with Dr. Nava he feels it is a simple cyst and less than 10 cm therefore less than 1% chance of ovarian cancer he recommend outpatient follow-up, he recommend to hold CA 125 testing since it could be falsely elevated due to acute illness, cont.oxycodone 5 mg q.6 hours for pain control, follow clinical course Hypertension continue valsartan, Norvasc, lasix Pre diabetic on diabetic diet and insulin sliding scale not on home medication DVT prophylaxis on Lovenox Code status full code Attending-Dr. Thornton Requires ongoing inpatient hospitalization due to workup for right lower extremity weakness/pain Quality Stroke Does the patient have a stroke diagnosis?: No VTE Prior VTE?: No VTE Risk Level:: Medical - moderate - high VTE Device Contraindication: Treatment Not Indicated VTE Drug Contraindication: N/A - Med Ordered
[2022-02-16 13:29] LABS: Glucose, Whole Blood 143 mg/dL (60-115)
--- NOTE | 2022-02-16 15:58 | PM.DS ---
DS: Providers Provider Date of Service: 02/16/22 Date of admission: 02/13/22 17:32 Date of discharge: 02/16/22 Primary care physician: Gauri Cardenas MD Consults: 02/13/22 17:36 Consult to Neurology Routine Consulting Provider: [facility] Reason for consultation: Right lower extremity weakness Has provider been notified: No Attending physician on discharge: Davis Thornton Discharging clinician: Gauri Faye DS: Diagnosis Discharge Diagnosis (1) Cellulitis of right lower extremity: Status: Acute (2) Leg weakness: Status: Acute (3) Adnexal mass: Status: Acute DS: Summary Hospital Course Hospital Course: From H&P on day of admission 76-year-old female Iraqi-speaking female history obtained via director of provider relations she has past medical history of hypertension, hyperlipidemia pre diabetes, history of coronary artery disease status post MO, pulmonary hypertension, aortic stenosis presented to [facility] due to right foot numbness that she noted when she woke up at 04:00 she also complained of right-sided flank/back pain patient was unable to move her right lower extremity therefore she called 911 EMS noted 1 episode of vomiting en route.? Patient denies visual symptoms no speech impairment, no upper extremity weakness numbness, Patient woke up with symptoms and presented 4.5 hours after onset in the emergency room patient underwent extensive workup chest x-ray showed bibasilar atelectasis, CT head showed no evidence of intra cranial hemorrhage or acute infarction, CTA abdomen showed 8.4 in to 5.2 into 4.4 cm right adnexal lesion related be homogeneous likely simple appearing follow-up ultrasound is recommended, a lumbar spine MRI showed left L3 pedicle nonspecific sclerotic lesion of uncertain etiology a sclerotic or shows metastasis cannot be definitely excluded, whole body bone scan is recommended to determine if there is any osteoblastic activity, CBC and electrolytes are within normal range patient noted to have elevated lactic acid, patient treated in the emergency room with IV Lasix, IV fluids and IV morphine, patient continued to have right lower extremity pain but denies abdominal pain, denies nausea vomiting. Discharge diagnoses Right lower extremity cellulitis Right lower extremity weakness/spinal cord lesion Adnexal mass Lumbar sclerotic lesion Urinary incontinence Right lower extremity weakness/pain CT head showed no acute abnormality, no other neuro deficit. hip xray negative for fracture. seen by neurology recommend to obtain MRI brain which was negative for acute stroke. Left L3 pedicle nonspecific sclerotic lesion? -recommend outpatient bone scan. Re-evaluated by Neurology who recommend high-dose steroids today and pulse of prednisone if improvement in symptoms. She received one dose of solu medrol 02/16. Nurse reported urinary incontinence beginning this afternoon. Thoracic spine MRI was obtained and showed significant abnormalities including concern over thoracic spinal cord infarct, venous congestion or less likely inflammatory, demyelinating or neoplastic. Spinal angiogram recommended to exclude spinal dural AVF. Discussed with our Radiology here unable to obtain spinal angiogram and MRA with the machine we have not likely to yield adequate results given age of equipment, was recommended to transfer to tertiary care facility for higher level imaging for further characterization of spina abnormalities.Patient has persistent weakness in right leg, tenderness to palpation in right lower leg even with light touch. Right lower extremity cellulitis. Started on IV doxycycline, no evidence of sepsis. Erythema has mostly resolved at this point. Treated with IV doxycycline 100 b.i.d., day 4/5. No fevers, normal WBC, blood cultures from 02/13 negative x2 Right adnexal mass noted on abdominal imaging, obtained pelvic ultrasound that showed 8 cm right adnexal cyst likely ovarian/paraovarian. case discussed with Dr. Nava (METALIZER) he feels it is a simple cyst and less than 10 cm therefore less than 1% chance of ovarian cancer he recommend outpatient follow-up. He recommend to hold CA 125 testing since it could be falsely elevated due to acute illness. L3 sclerotic lesion - etiology uncertain. Radiology recommends whole body bone scan, likely as outpatient. Time Spent with Patient Time attestation: Total time spent providing and/or coordinating discharge services: Discharge coordination time: Greater than 30 minutes Quality: Safe Use of Opioids Does Pt have an Active Cancer Diagnosis on the Problem List?: No Quality: Stroke Does the patient have a stroke diagnosis?: No Physical Exam Vital Signs: Vital Signs: Last Vital Signs Temp 97.5 F 02/16/22 08:00 Pulse 75 02/16/22 11:06 Resp 20 02/16/22 12:00 BP 168/92 H 02/16/22 11:06 Pulse Ox 95 02/16/22 11:06 O2 Del Method 02/16/22 08:00 O2 Flow Rate 2 02/16/22 08:00 BMI result Body Mass Index 29.5 Const: General: cooperative, comfortable, alert and awake Nutritional Appearance: overweight Orientation/consciousness: patient oriented x3 Resp: Effort & Inspection: normal respiratory effort and able to speak in complete sentences Cardio: Rate: regular rate Heart sounds: S1 normal heart sound present and S2 normal heart sound present GI: Other: Soft, positive bowel sounds. Reports ?pain? with very gentle palpation of the right lower quadrant and she states the pain is in her skin Inspection: No distended Palpation (GI): Soft to palpation Skin: Other: RLE erythema resolved, cell tender helper anterior hill Neuro: General: patient oriented x3 and CN's II-XI intact bilaterally Cranial nerves: Yes Midline tongue present Extrem: Other: limited ROM at right ankle, knee and hip reports numb right hip but able to feel sensation General: Yes no pedal edema DS: Data Data Completed and Pending Labs on day of discharge: Laboratory Results - last 24 hr 02/15/22 02/15/22 02/16/22 16:25 20:10 07:21 POC Glucose 140 H 148 H 150 H 02/16/22 13:27 POC Glucose 143 H Preliminary micro results at discharge 02/13/22 15:35 Blood Culture - Preliminary Blood - Venous No growth after 48 hours. 02/13/22 15:35 Blood Culture - Preliminary Blood - Venous No growth after 48 hours. Imaging US - abdomen: Radiologist's impression: ITS Impressions Head CT 02/13/22 09:36 IMPRESSION: * No evidence of intracranial hemorrhage or acute major vascular territory infarction. 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 Chest X-Ray 02/13/22 09:40 IMPRESSION: 1. Bilateral low lung volumes with slight accentuation of the pulmonary vasculature. 2. Bibasilar atelectasis. Aorta w/Runoff CTA 02/13/22 10:10 IMPRESSION: Patent abdominopelvic arterial vasculature. There is no opacification of the runoff vessels beyond the level of the distal calf bilaterally. This is most likely related to contrast bolus timing. There are presumed chronic venous stasis changes of the right lower extremity and soft tissue edema. There is an indeterminate 8.4 x 5.2 x 4.4 cm right adnexal lesion which appears relatively homogeneous, likely simple appearing. Follow-up ultrasound for further characterization suggested. Lumbar Spine MRI 02/13/22 13:00 IMPRESSION: Of note there is transitional spinal anatomy at the lumbosacral junction with partial lumbarization of the S1 vertebral segment. There is a well-formed intervertebral disc at S1-S2. There is multilevel degenerative spondylosis of the lumbar spine with grade 1 anterolisthesis of L5 on S1 related to advanced facet degenerative changes at this level. Subarticular zone narrowing at this level causes abutment and possible compression of both traversing S1 nerve roots. Otherwise no substantial mass effect on the traversing or foraminal nerve roots elsewhere within the lumbar spine. There is a nonspecific sclerotic lesion involving the left L3 pedicle. The etiology of this finding is uncertain. The possibility of a sclerotic osseous metastasis cannot be definitively excluded on the basis of this examination. Correlation with prior imaging is therefore recommended if available. Otherwise a whole-body bone scan can be obtained to determine whether there is any osteoblastic activity. Pelvic/Transvag US 02/13/22 18:24 IMPRESSION: Small uterine fibroid. The uterus otherwise unremarkable. Patient is unable to void moderately distended bladder. Transvaginal ultrasound is limited. Ovaries are not seen. However there is a right adnexal 8 cm cyst, question ovarian versus paraovarian. Trace free fluid in the cul-de-sac. Hip X-Ray 02/14/22 15:46 IMPRESSION: Bilateral degenerative changes. Brain MRI 02/15/22 15:58 IMPRESSION: No definite acute intracranial findings however the stroke sensitive diffusion series is limited, particularly given favored artifact coursing through the left temporal lobe and left uncus. There is advanced chronic microangiopathy and there is global cerebral volume loss. Atlantooccipital assimilation bilaterally. Chronic microhemorrhages within the cerebellar hemispheres bilaterally. Thoracic Spine MRI 02/16/22 13:00 IMPRESSION: - There are fairly extensive nonenhancing intramedullary T2 signal changes within the thoracic spinal cord, greater on the right side, spanning the T9 through the L1 conus tip level. Differential considerations for these findings include a thoracic spinal cord infarct, venous congestion, or less likely an inflammatory, demyelinating, or neoplastic given the lack of enhancement however assessment on postcontrast imaging is limited by the degree of artifact. No definite flow voids are seen along the periphery of the thoracic spinal cord however a spinal angiogram would be helpful in more definitively excluding a spinal dural aVF as a cause for these findings. Close follow-up is advised. - Small paracentral disc protrusions throughout the thoracic spine without significant central canal stenosis. A disc protrusion at T8-T9 mildly flattens the ventral cord without resulting in significant central canal stenosis. Findings discussed with Gauri FELIPE at 1:32 PM on 02/16/2022. Discharge Plan Discharge Patient Disposition: [facility] Discharge Diagnosis: right leg weakness spinal cord lesion Referrals: Gauri Cardenas MD [Primary Care Provider] - 1 Week Discharge Medications: New doxycycline hyclate [Doxy-100] 100 mg Recon Soln 100 mg IV Q12H Qty: 10 0RF oxycodone 5 mg Tablet 5 mg PO Q6H PRN (Reason: Pain, Severe (Pain Scale 7-10)) Qty: 1 0RF Rx Instructions: Partial Fill upon patient request. Continued pravastatin 40 mg tablet 1 tab PO BEDTIME clopidogrel 75 mg tablet 1 tab PO DAILY amlodipine 5 mg tablet 1 tab PO DAILY acetaminophen 500 mg tablet 1 tab PO Q8H PRN (Reason: Pain) valsartan [Diovan] 320 mg tablet 1 tab PO DAILY furosemide 20 mg tablet 0.5 tab PO DAILY cholecalciferol (vitamin D3) 25 mcg (1,000 unit) tablet 1 tab PO DAILY Discharge Orders: Discharge Order (Routine); Ordered 02/16/22 Ordered By: Gauri Faye Activity on Discharge: As tolerated Stand Alone Forms: Patient Portal Discharge page Care Plan Goals: see below Health Concerns: Right lower extremity cellulitis Right leg weakness/Spinal cord lesion Adnexal mass Plan of Treatment: Transfer to tertiary care facility for higher level imaging/possible intervention will need outpatient follow up for adnexal cyst Imaging studies were copied to disc and should accompany patient to [facility] Assessment: See discharge summary Discharge Date/Time: 02/16/22 20:30
[2022-02-16 16:32] LABS: Glucose, Whole Blood 148 mg/dL (60-115)
[2022-02-16] MEDS: methylPREDNISolone Sod Succ 1,000 MG in 0.9 % Sodium Chloride 50 ML 66 MG IV (18:08)
[2022-02-16] MEDS: Docusate Sodium 100 MG CAPSULE PO (20:12)
[2022-02-16] MEDS: Pravastatin Sodium 40 MG TABLET PO (20:12)
[2022-02-16 20:31] LABS: Glucose, Whole Blood 160 mg/dL (60-115)
== END 2022-02-16 20:30 | disposition short-term general hospital (02) | DRG 603 ==
LOC: HO.ED 14:47 → HO.EDOVER 17:43 → HO.IMC 02-14 19:10
PROVIDERS: Admitting Provider Hospitalist; Emergency Provider Emergency Medicine; PCP Family Medicine; Visit Provider Physician Assistant Medical
DX: L03.115 Cellulitis of right lower limb (principal); E87.2 Acidosis; G83.11 Monoplegia of lower limb affecting right dominant side; E11.9 Type 2 diabetes mellitus without complications; I35.0 Nonrheumatic aortic (valve) stenosis; I25.10 Atherosclerotic heart disease of native coronary artery without angina pectoris; I10 Essential (primary) hypertension; E66.9 Obesity, unspecified; N83.201 Unspecified ovarian cyst, right side; I25.2 Old myocardial infarction; J45.909 Unspecified asthma, uncomplicated; R73.03 Prediabetes; Z20.822 Contact with and (suspected) exposure to COVID-19; Z88.0 Allergy status to penicillin; Z88.6 Allergy status to analgesic agent; Z88.8 Allergy status to other drugs, medicaments and biological substances; Z79.02 Long term (current) use of antithrombotics/antiplatelets; Z79.899 Other long term (current) drug therapy
CPT/HCPCS: 36415; 70450; 70551; 71045; 72148; 72157; 73502; 75635; 76830; 76856; 80048; 80076; 81003; 82947; 83605; 83690; 83735; 83880; 84484; 85025; 85610; 85730; 87040; 87635; 93005; 96361; 96365; 96375; 97163; 99285; A9585; J1650; J1956; J2270; J2405; J2930; Q9967

== ENCOUNTER 2022-06-13 15:29 | Emergency (ER) | payer OTHER, SELFPAY ==
--- NOTE | ~2022-06-13 | US_ITS ---
EXAMINATION: Left LOWER EXTREMITY DUPLEX CLINICAL INFORMATION: Cold and painful left lower extremity COMPARISON: None TECHNIQUE: Real-time ultrasound and Doppler techniques (integrating B-mode 2-D vascular images, Doppler spectral analysis and color flow Doppler imaging) were utilized to interrogate the lower extremities. FINDINGS: LEFT LEG: Common femoral artery: 41 cm/s, multiphasic Profunda femoris artery: 61.5 cm/s, multiphasic Superficial femoral artery (proximal): 44.1 cm/s, multiphasic Superficial femoral artery (mid): 29.8 cm/s, multiphasic Superficial femoral artery (distal): 14.8 cm/s, monophasic Popliteal artery: 12.1 cm/s, monophasic within the popliteal artery there is echogenic material filling the lumen, beyond which there is essentially no vascular flow visualized. Posterior tibial artery: No demonstrable flow US/US arterial duplex LE LT IMPRESSION: There is echogenic material within the popliteal artery suggesting arterial thrombosis, beyond which no Doppler signal is seen within the lower extremity. There is monophasic flow within the distal superficial femoral artery suggesting arterial disease at this level as well. Urgent findings were communicated by telephone with Dr. Loera by Dr. Pacheco at 2056 hours.
[2022-06-13 15:37] VITALS: BP 170/87; PULSE 75; O2SAT 96
[2022-06-13 15:55] VITALS: BP 138/51; PULSE 78; RESP 20; TEMP 37; O2SAT 93; BMI 29.5
--- NOTE | 2022-06-13 16:04 | ED_ITS ---
HPI - General Adult General Chief complaint: General Medical Stated complaint: LEFT LEG NUMBNESS Time Seen by Provider: 06/13/22 15:53 Source: patient Mode of arrival: wheelchair Limitations: no limitations History of Present Illness HPI narrative: Patient comes to the emergency room complaining that her left lower extremity feels much cooler than the right leg. Patient states that last night, 24+ hours ago, patient noted that her left leg was colder than the right 1, but did not think much of it, there was no change in pain level. This morning. Patient was visited by her nurse, confirmed that the lower extremity was called, advised her to come to the emergency room. Patient arrived to the ED approximately at 17:00. Patient states that she has chronic pain bilaterally lower extremities since January of this year. Patient is unclear what her diagnosis is, but states that she has a thoracic spine condition, has been addressed at [facility] in [facility]. Since then, patient states that due to severe pain in both lower extremities she cannot walk and is mostly bed ridden. Patient is not on any b lood thinners. Patient states that she does not have any additional calf pain, or swelling. Related Data Home Medications Medication Instructions Recorded Confirmed acetaminophen 500 mg tablet 1 tab PO Q8H PRN Pain 04/10/21 02/13/22 amlodipine 5 mg tablet 1 tab PO DAILY 04/10/21 02/13/22 cholecalciferol (vitamin D3) 25 1 tab PO DAILY 04/10/21 02/13/22 mcg (1,000 unit) tablet clopidogrel 75 mg tablet 1 tab PO DAILY 04/10/21 02/13/22 furosemide 20 mg tablet 0.5 tab PO DAILY 04/10/21 02/13/22 pravastatin 40 mg tablet 1 tab PO BEDTIME 04/10/21 02/13/22 valsartan 320 mg tablet (Diovan) 1 tab PO DAILY 04/10/21 02/13/22 Previous Rx's Medication Instructions Recorded doxycycline hyclate 100 mg 100 mg IV Q12H #10 ea 02/16/22 intravenous powder for solution (Doxy-100) oxycodone 5 mg tablet 5 mg PO Q6H PRN Pain, Severe (Pain 02/16/22 Scale 7-10) #1 tab Allergies Allergy/AdvReac Type Severity Reaction Status Date / Time aspirin [ASPIRIN] Allergy Intermediate NUMBNESS Verified 06/13/22 15:34 Penicillins [PENICILLINS] Allergy Intermediate RASH Verified 06/13/22 15:34 penicillin V Allergy Unknown Rash Verified 06/13/22 15:34 potassium Allergy Unknown Unknown Verified 06/13/22 15:34 Review of Systems Review of Systems: Constitutional : No Weight loss, No Fever, No Chills, No Night Sweats, No Fatigue, No Malaise ENT/Mouth : No Hearing loss, No Ear Pain, No Nasal Congestion, No Sinus Pain, No Hoarseness, No sore throat, No Rhinorrhea, No Swallowing Difficulty Eyes: No Eye Pain, No Swelling, No Redness, No Foreign Body, No Discharge, No Vision Changes Cardiovascular : No Chest Pain, No SOB, No Dyspnea on Exertion, No Orthopnea, No Edema, No Palpitations Respiratory : No Cough, No Sputum, No Wheezing, No Smoke Exposure, No Dyspnea Gastrointestinal : No Nausea, No Vomiting, No Diarrhea, No Constipation, No abdominal Pain, No Hematochezia, No Melena Genitourinary : no irregular bleeding, No Dysuria, No Urinary Frequency, No Hem aturia, No Urinary Incontinence, No Urgency, No Flank Pain, No Urinary Flow Changes, No Hesitancy Musculoskeletal : Complaining of chronic lower extremity pain for 4+ months, new: Cold lower extremity on the left side Skin : No Skin Lesions, No rash Neuro : No Weakness, No Numbness, No Paresthesias, No Loss of Consciousness, No Dizziness, No Headache Psych : No Anxiety/Panic, No Depression, No SI/HI/AH/VH, No Social Issues, Heme/Lymph: No Bruising, No Bleeding,No Lymphadenopathy Endocrine : No Polyuria, No Polydipsia, No Temperature Intolerance [facility] Past Medical History Medical History Aortic stenosis Asthma Diabetes HTN (hypertension) Hyperlipidemia Pulmonary hypertension Social History Social History Household Members: Family Housing: House Do you presently have visiting nurse or other home services: Yes Alcohol intake: never Patient Tobacco Use Status: Never used Tobacco Advance Directives: Yes Advance Directives on File: Yes Advance Directives Date on File: 02/14/22 service: No Physical Exam ED Vital Signs: Vital Signs - 24 hr 06/13/22 15:55 06/13/22 16:45 06/13/22 20:44 Temperature 98.6 F 98.0 F Pulse Rate 78 80 73 Respiratory Rate 20 16 17 Blood Pressure 138/51 L 149/84 H 138/80 Pulse Oximetry 93 96 95 Oxygen Delivery Method Room Air Room Air Room Air BMI result Body Mass Index 29.5 Const Other: Appearance: Alert. Oriented X3. No acute distress. Eyes: Pupils equal, round and reactive to light. ENT: Pharynx normal. Neck: Normal inspection. Neck supple. No lymph nodes noted. No crepitus CVS: Normal heart rate and rhythm. Pulses normal. Normal S1 and S2 Respiratory: No respiratory distress. Breath sounds normal. No Wheezing. No rales Abdomen: Soft and nontender. No rigidity. No distention. Skin: Skin warm and dry. Normal skin color. Normal skin turgor. Extremities: No lower extremity edema. Patient's left lower extremity below the knee does feel colder than the right leg, pedal pulses are not palpable on the left leg, very diminished pulses present on the right side. Neuro: Oriented X 3. No motor deficit. No sensory deficit. Moving all extremities. No slurred speech. CN 2 through 12 grossly intact Psych: calm, cooperative, normal affect Course Course Course Narrative: Patient has been started on heparin, patient received 1 bolus and high-dose heparin. Dr. Almodovar is not available today. I discussed the ultrasound with Dr. Geni Cortez from vascular surgery at [facility], patient will be transferred to ED to ED Per patient's request, I called her daughter Silvia Wilson, who has been informed that the patient is being transferred to [facility] Medical Decision Making Lab Data Result Diagrams: 06/13/22 16:38 06/13/22 16:38 Labs: Lab Results 06/13/22 06/13/22 06/13/22 Range/Units 16:29 16:38 16:38 WBC 8.1 (4.8-10.8) X10*3/uL RBC 5.02 (4.20-5.50) X10*6/uL Hgb 15.2 (12.0-16.0) g/dl Hct 45.9 (37.0-47.0) % MCV 91.4 (80.0-98.0) fL MCH 30.3 (27.0-33.0) pg MCHC 33.1 (31.0-35.0) g/dl RDW 12.2 (11.0-16.0) % Plt Count 290 D (160-400) X10*3/uL MPV 9.3 L (9.4-12.3) fL Immature Gran % (Auto) 0.4 (0.0-0.4) % Neut % (Auto) 69.9 (45-73) % Lymph % (Auto) 18.0 L (20-40) % [place] % (Auto) 10.4 (2-11) % Eos % (Auto) 0.6 (0-4) % Baso % (Auto) 0.7 (0-2) % Lymph # (Auto) 1.5 (1.2-4.9) X10*3/uL [place] # (Auto) 0.8 (0.1-1.2) X10*3/uL Eos # (Auto) 0.1 (0.0-0.4) X10*3/uL Baso # (Auto) 0.1 (0.0-0.2) X10*3/uL Abs Immat Gran (auto) 0.03 (0.00-0.03) X10*3/uL Absolute Neuts (auto) 5.7 (2.0-8.3) x10*3/uL Absolute Nucleated RBC 0.000 (0.0-0.012) X10*3/uL Nucleated RBC % (auto) 0.0 (0.0-0.2) /100WBC Sodium 137 (135-145) mmol/L Potassium 3.4 (3.3-5.1) mmol/L Chloride 102 (96-108) mmol/L Carbon Dioxide 24 (22-29) mmol/L Anion Gap 14 (12-20) BUN 10 (9-16) mg/dL Creatinine 0.56 (0.5-1.4) mg/dL Estim Creat Clear Calc 82.5 Estimated GFR > 60 Random Glucose 128 H (60-115) mg/dL Calcium 9.1 (8.4-10.2) mg/dL Total Bilirubin 0.6 (0.0-1.0) mg/dL Direct Bilirubin 0.2 (0.0-0.5) mg/dL AST 32 H (5-31) U/L ALT 30 (0-31) U/L Alkaline Phosphatase 91 (39-117) U/L Total Protein 6.2 L (6.5-8.0) g/dL Albumin 3.5 (3.5-5.0) g/dL COVID-19 (JAYSON) Negative (Negative) COVID-19 Clin Com See Note Critical Care Time Critical Care Time Critical Care Time: Yes Total Critical Care Time: 60 Attestation: I have personally provided critical care time. Time includes review of lab data, radiology results, discussion with consultants, and monitoring for potential decompensation. Intervention performed as documented. Discharge Plan Discharge Clinical Impression: Popliteal artery thrombosis, left Patient Disposition: [facility] Transfer Details: [facility], ED to ED, vascular surgeon Dr. Cortez Prescriptions: No Action pravastatin 40 mg tablet 1 tab PO BEDTIME clopidogrel 75 mg tablet 1 tab PO DAILY amlodipine 5 mg tablet 1 tab PO DAILY acetaminophen 500 mg tablet 1 tab PO Q8H PRN (Reason: Pain) valsartan [Diovan] 320 mg tablet 1 tab PO DAILY furosemide 20 mg tablet 0.5 tab PO DAILY cholecalciferol (vitamin D3) 25 mcg (1,000 unit) tablet 1 tab PO DAILY doxycycline hyclate [Doxy-100] 100 mg Recon Soln 100 mg IV Q12H Qty: 10 0RF oxycodone 5 mg Tablet 5 mg PO Q6H PRN (Reason: Pain, Severe (Pain Scale 7-10)) Qty: 1 0RF Rx Instructions: Partial Fill upon patient request.
--- NOTE | 2022-06-13 16:08 | ECG_ITS ---
Test Reason : WEAKNESS Blood Pressure : / mmHG Vent. Rate : 079 BPM Atrial Rate : 079 BPM P-R Int : 138 ms QRS Dur : 126 ms QT Int : 396 ms P-R-T Axes : 034 -27 110 degrees QTc Int : 454 ms Normal sinus rhythm Left bundle branch block Abnormal ECG When compared with ECG of 13-FEB-2022 08:43, No significant change was found Referred By: Zina Loera Electronically Signed By:Quincy Bauman
[2022-06-13 16:45] VITALS: BP 149/84; PULSE 80; RESP 16; O2SAT 96
[2022-06-13 16:46] LABS: MANUAL DIFF FLAG NO
[2022-06-13 16:47] LABS: Basophils Absolute Auto 0.1 X10*3/uL (0.0-0.2); Basophils Percent Auto 0.7 % (0-2); Eosinophils Absolute Auto 0.1 X10*3/uL (0.0-0.4); Eosinophils Percent Auto 0.6 % (0-4); Hematocrit 45.9 % (37.0-47.0); Hemoglobin 15.2 g/dl (12.0-16.0); Imm Gran Abs Auto 0.03 X10*3/uL (0.00-0.03); Imm Gran Pct Auto 0.4 % (0.0-0.4); Lymphocytes Absolute Auto 1.5 X10*3/uL (1.2-4.9); Mean Corpuscular HGB Conc 33.1 g/dl (31.0-35.0); Mean Corpuscular Hemoglobin 30.3 pg (27.0-33.0); Mean Corpuscular Volume 91.4 fL (80.0-98.0); Mean Platelet Volume 9.3 fL (9.4-12.3); Monocytes Absolute Auto 0.8 X10*3/uL (0.1-1.2); Monocytes Percent Auto 10.4 % (2-11); Neutrophils Absolute Auto 5.7 x10*3/uL (2.0-8.3); Neutrophils Percent Auto 69.9 % (45-73); Platelet Count 290 X10*3/uL (160-400); Red Blood Count 5.02 X10*6/uL (4.20-5.50); Red Cell Distribution Width 12.2 % (11.0-16.0); White Blood Count 8.1 X10*3/uL (4.8-10.8)
[2022-06-13 17:06] LABS: Alanine Aminotransferase 30 U/L (0-31); Albumin Level 3.5 g/dL (3.5-5.0); Alkaline Phosphatase 91 U/L (39-117); Anion Gap 14 (12-20); Aspartate Amino Transferase 32 U/L (5-31); Bilirubin Direct 0.2 mg/dL (0.0-0.5); Bilirubin Total 0.6 mg/dL (0.0-1.0); Blood Urea Nitrogen 10 mg/dL (9-16); Calcium 9.1 mg/dL (8.4-10.2); Carbon Dioxide 24 mmol/L (22-29); Chloride 102 mmol/L (96-108); Creatinine Clr Calc Pharmacy 82.5; Estimated Glomerular Filt Rate > 60; Glucose Random 128 mg/dL (60-115); Potassium 3.4 mmol/L (3.3-5.1); Sodium 137 mmol/L (135-145); Total Protein 6.2 g/dL (6.5-8.0)
[2022-06-13 17:14] LABS: COVID-19 Test Negative (Negative); IDNOW Serial# 16C4AD1C
[2022-06-13 20:44] VITALS: BP 138/80; PULSE 73; RESP 17; TEMP 36.7; O2SAT 95
--- NOTE | 2022-06-13 20:46 | MHC.EDTECH ---
pt was cleaned from incontinence and a purewick was applied
[2022-06-13 21:43] LABS: Hematocrit 46.3 % (37.0-47.0); Hemoglobin 15.5 g/dl (12.0-16.0); Mean Corpuscular HGB Conc 33.5 g/dl (31.0-35.0); Mean Corpuscular Hemoglobin 30.3 pg (27.0-33.0); Mean Corpuscular Volume 90.6 fL (80.0-98.0); Mean Platelet Volume 9.3 fL (9.4-12.3); Platelet Count 317 X10*3/uL (160-400); Red Blood Count 5.11 X10*6/uL (4.20-5.50); Red Cell Distribution Width 12.1 % (11.0-16.0); White Blood Count 9.1 X10*3/uL (4.8-10.8)
[2022-06-13] MEDS: Heparin Sodium,Porcine 5,000 UNIT/ML VIAL 5800 UNIT IVPUSH (21:47)
[2022-06-13 21:50] LABS: INTERNATIONAL NORM RATIO 1.2 (0.9-1.1); Prothrombin Time 13.7 SEC (10.0-13.1)
[2022-06-13] MEDS: Heparin Sodium,Porcine/1/2NS 25,000 UNIT/250 ML IV.SOLN 10.23 UNIT IVCONT (21:50)
--- NOTE | 2022-06-13 21:58 | PC.NURSE ---
22G placed left AC, medicated per provider order.
== END 2022-06-13 22:30 | disposition short-term general hospital (02) ==
PROVIDERS: Emergency Provider Emergency Medicine; PCP Family Medicine
DX: I82.432 Acute embolism and thrombosis of left popliteal vein (principal); G89.29 Other chronic pain; M79.662 Pain in left lower leg; M79.661 Pain in right lower leg; E11.9 Type 2 diabetes mellitus without complications; I10 Essential (primary) hypertension; E78.5 Hyperlipidemia, unspecified; Z79.02 Long term (current) use of antithrombotics/antiplatelets; Z79.899 Other long term (current) drug therapy; Z20.822 Contact with and (suspected) exposure to COVID-19
CPT/HCPCS: 36415; 80048; 80076; 85025; 85027; 85610; 85730; 87635; 93005; 93926; 96365; 96375; 99285

== ENCOUNTER 2022-07-29 18:10 | Inpatient (IN) | payer OTHER, SELFPAY ==
--- NOTE | ~2022-07-29 | CT_ITS ---
EXAMINATION: CT CHEST, ABDOMEN AND PELVIS WITH CONTRAST CLINICAL INFORMATION: Sepsis COMPARISON: Noncontrast CT abdomen/pelvis from earlier the same day TECHNIQUE: Multidetector volumetric imaging was performed through the chest, abdomen and pelvis following the administration of 85 mL of Omnipaque 350 intravenous contrast. Sagittal and coronal reformatted images were obtained on the technologist's workstation. Axial MIP volume rendering provided. This CT examination was performed using dose optimization techniques as appropriate, variously including the following: *Automated exposure control *Adjustment of mA and/or kV according to patient size (this includes techniques or standardized protocols for targeted exams where dose is matched to indication/reason for exam; i.e. extremities or head) *Use of iterative reconstruction technique DLP: 290, 558 mGy-cm FINDINGS: CHEST: Lungs: There is a region of dense consolidation in the posterior left lower lobe. Additional scattered multifocal regions of groundglass opacity are present bilaterally. Overall appearance is suspicious for multifocal pneumonia. Mediastinum: The visualized thyroid gland is unremarkable. There are subcentimeter mediastinal lymph nodes within the range of normal variation. Borderline cardiomegaly without pericardial effusion. Coronary artery calcifications are present. There is atherosclerotic calcification along the aorta. Pleura: There is no significant effusion. No pleural mass or thickening. Chest Wall/Axilla: Unremarkable. ABDOMEN/PELVIS: Liver, Gallbladder, Biliary Tree: The liver is normal in size, shape, and attenuation. No focal hepatic lesion or biliary ductal dilatation is present. The gallbladder is unremarkable with no evidence of radiopaque gallstones, gallbladder wall thickening, or pericholecystic inflammatory changes. Pancreas: Somewhat atrophic. Spleen: Unremarkable. Adrenal Glands: Unremarkable. Kidneys and Ureters: No hydronephrosis or obstructing calculus bilaterally. There are several scattered bilateral renal hypodensities measuring up to 2.2 cm in the left kidney, favoring cysts. A few scattered bilateral renal calculi are noted measuring up to 5 mm on the right. Bladder: Minimally distended and grossly unremarkable. Gastrointestinal Tract: Redemonstrated predominantly gaseous distention of much of the colon, similar to prior without convincing evidence for focal obstruction. No significant bowel wall thickening is seen. The appendix is unremarkable. No free fluid or free air is seen. Abdominal Wall: No hernia is demonstrated. Lymphovascular Structures: Lymph nodes: Normal. Vascular: There is atherosclerotic calcification along the aorta and iliac arteries. There is hypodensity in the infrarenal IVC most consistent with thrombus as seen on coronal image 42. Pelvic Viscera: Redemonstrated right adnexal cyst measuring up to 7.2 cm in craniocaudal dimension. OSSEOUS STRUCTURES: Scattered degenerative changes are present in the spine. CT/CT abdomen pelvis w IV con IMPRESSION: 1. Area of dense consolidation in the posterior left lower lobe along with scattered multifocal regions of groundglass opacity bilaterally, suspicious for multifocal pneumonia. 2. Hypodensity in the infrarenal IVC most consistent with thrombus. 3. Redemonstrated predominantly gaseous distention of much of the colon, similar to prior. 4. Coronary artery calcifications. Correlation with cardiac risk factors is recommended. This critical result was discussed with Dr. Payne on 07/30/2022 12:39 AM, and it was ascertained that the content and urgency of the report was understood at the time of direct communication.
--- NOTE | ~2022-07-29 | XR_ITS ---
EXAMINATION: XR CHEST CLINICAL INFORMATION: Shortness of breath COMPARISON: 02/13/2022 TECHNIQUE: Frontal view of the chest was obtained. FINDINGS: No significant abnormality is noted involving the heart, lungs, mediastinum, bony thorax or soft tissues. Linear atelectasis seen in the right lung base XR/XR chest 1V IMPRESSION: No active cardiopulmonary disease
--- NOTE | ~2022-07-29 | CT_ITS ---
EXAMINATION: CT ABDOMEN AND PELVIS WITHOUT CONTRAST CLINICAL INFORMATION: Elevated WBCs. Vomiting. COMPARISON: None TECHNIQUE: Multidetector volumetric imaging was performed from the superior aspect of the liver through the pubic symphysis. Sagittal and coronal reformatted images were obtained on the technologist's workstation. This CT examination was performed using dose optimization techniques as appropriate, variously including the following: *Automated exposure control *Adjustment of mA and/or kV according to patient size (this includes techniques or standardized protocols for targeted exams where dose is matched to indication/reason for exam; i.e. extremities or head) *Use of iterative reconstruction technique DLP: 760 mGy-cm FINDINGS: LUNG BASES: Pacemaker leads in heart. Linear and patchy airspace opacities/atelectasis at both dependent lung bases. No pleural effusion. LIVER, GALLBLADDER, AND BILIARY TREE: The liver is normal in size, shape, and attenuation. No focal hepatic lesion or biliary ductal dilatation is present. The gallbladder is unremarkable with no evidence of radiopaque gallstones, gallbladder wall thickening, or obvious pericholecystic inflammatory changes. PANCREAS: Atrophy of the pancreas. No inflammation or mass. SPLEEN: Unremarkable. ADRENAL GLANDS: Unremarkable. KIDNEYS AND URETERS: Small scattered bilateral nonobstructive renal stones measuring between 1 and 3 mm. There is one stone in the right kidney. There are 3 stones in the left kidney. There is no hydroureter and no ureteral calculus. Stable 2.2 cm cyst cortex mid lower pole left kidney. There are a few additional smaller hypodensities likely cysts unchanged since prior CAT scan 02/13/2022. No follow-up imaging is recommended for simple renal cyst. BLADDER: Unremarkable. GASTROINTESTINAL TRACT: There is gaseous distention of the nondependent colonic bowel loops. Transverse colon distended to a diameter of 6 cm transverse. Cecum is decompressed measuring 4 cm transverse. Gas distending the colon is new since CAT scan 02/13/2022 however. Fluid extending down to the anal verge. No transition point or point of obstruction. No bowel wall thickening or edema. Small volume of scattered stool in the colon. The appendix is normal. Small bowel loops are normal. Stomach is unremarkable. No hiatal hernia. ABDOMINAL WALL: No significant hernia is appreciated. LYMPH NODES: Normal. VASCULAR: Atherosclerotic vascular calcifications of aorta and iliac vessels. There is no aneurysm. PELVIC VISCERA: Right adnexal cystic lesion measuring 6 x 8 x 5 cm. Small peripheral calcification at the posterior wall. This is a density measurement of -9 Hounsfield units. This is unchanged since CAT scan 02/13/2022. This was defined as an anechoic cyst on pelvic ultrasound 02/13/2022. Uterus is anteverted. OSSEOUS STRUCTURES: Multilevel degenerative spondylosis of the spine. CT/CT abdomen pelvis wo IV con IMPRESSION: 1. Gaseous distention of the nondependent colonic bowel loops without transition point or point of obstruction. This is new since CAT scan 02/13/2022. No bowel wall thickening or edema. 2. Bilateral nonobstructive renal stones. No hydroureter or ureteral calculi. Fleischner guidelines were followed.
[2022-07-29 18:14] VITALS: BP 107/65; BP 158/92; PULSE 103; PULSE 108; RESP 18; TEMP 37.1; O2SAT 88; O2SAT 89; BMI 32.9
--- NOTE | 2022-07-29 18:23 | ED.GENADULT ---
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 Patient denied any shortness of breath. Patient had x-ray of abdomen was done and nursing which shows slightly dilated bowels. Patient denies any abdominal pain no fever no chills no cough no chest pain or palpitation patient is on Eliquis and Plavix Related Data Home Medications Medication Instructions Recorded Confirmed acetaminophen 500 mg tablet 1 tab PO Q8H PRN Pain 04/10/21 02/13/22 amlodipine 5 mg tablet 1 tab PO DAILY 04/10/21 02/13/22 cholecalciferol (vitamin D3) 25 1 tab PO DAILY 04/10/21 02/13/22 mcg (1,000 unit) tablet clopidogrel 75 mg tablet 1 tab PO DAILY 04/10/21 02/13/22 furosemide 20 mg tablet 0.5 tab PO DAILY 04/10/21 02/13/22 pravastatin 40 mg tablet 1 tab PO BEDTIME 04/10/21 02/13/22 valsartan 320 mg tablet (Diovan) 1 tab PO DAILY 04/10/21 02/13/22 Previous Rx's Medication Instructions Recorded doxycycline hyclate 100 mg 100 mg IV Q12H #10 ea 02/16/22 intravenous powder for solution (Doxy-100) oxycodone 5 mg tablet 5 mg PO Q6H PRN Pain, Severe (Pain 02/16/22 Scale 7-10) #1 tab Allergies Allergy/AdvReac Type Severity Reaction Status Date / Time aspirin [ASPIRIN] Allergy Intermediate NUMBNESS Verified 06/13/22 15:34 Penicillins [PENICILLINS] Allergy Intermediate RASH Verified 06/13/22 15:34 penicillin V Allergy Unknown Rash Verified 06/13/22 15:34 potassium Allergy Unknown Unknown Verified 06/13/22 15:34 Review of Systems Review of Systems: Yes all other systems are reviewed and are negative [facility] Past Medical History Medical History Aortic stenosis Asthma Diabetes HTN (hypertension) Hyperlipidemia Pulmonary hypertension Social History Social History Household Members: Family Housing: House Do you presently have visiting nurse or other home services: Yes Alcohol intake: never Patient Tobacco Use Status: Never used Tobacco Advance Directives: Yes Advance Directives on File: Yes Advance Directives Date on File: 02/19/22 service: No Physical Exam ED Vital Signs: Vital Signs - 24 hr 07/29/22 18:14 07/29/22 23:57 Temperature 98.7 F 98.0 F Pulse Rate 103 H 85 Respiratory Rate 18 25 H Blood Pressure 107/65 162/65 H Pulse Oximetry 89 L 96 Oxygen Delivery Method Nasal Cannula Room Air BMI result Body Mass Index 32.9 Appearance: Alert. Oriented X3. No acute distress. Eyes: PERRLA, No Nystagmus ENT: Pharynx normal. Oral Mucosa moist Neck: Normal inspection. Neck supple. CVS: Normal heart rate and rhythm. Pulses normal. Respiratory: No respiratory distress. Equal air entry bilateral, decreased air entry at bases with few crackles Abdomen: Soft and nontender. Bowel sounds are present, no mass palpable, no CVA tenderness Skin: Skin warm and dry. Normal skin color. Normal skin turgor. Stage II sacral decubitus no signs of infection Extremities: 1+ lower extremity edema. No calf tenderness, left AKA Neuro: Oriented X 3. No motor deficit. Medications Administered Discontinued Medications Generic Name Dose Route Start Last Admin Trade Name Freq PRN Reason Stop Dose Admin Piperacillin Sod/Tazobactam 50 mls @ 100 mls/hr 07/29/22 20:08 07/29/22 20:42 Sod 3.375 gm/ Sodium Chloride IV 07/29/22 20:37 100 mls/hr ONCE ONE Administration Iohexol 85 ml 07/30/22 00:05 07/30/22 00:05 Iohexol 350 Mg/Ml 100 Ml Infus..Btl IV 07/30/22 00:06 85 ml ONCE ONE Administration Medical Decision Making Medical Decision Making MDM Narrative: Patient with acute hypoxia and vomiting noticed to have leukocytosis of 24.3 lactic acid of 2 chest x-ray was negative patient was started with IV fluid and IV Zosyn CT chest and CT abdomen was done with IV contrast which showed multifocal pneumonia and IVC thrombus patient already on Eliquis and Plavix will start on Lovenox, no abdominal pain will admit patient for IV antibiotics and further work patient meets criteria for sepsis initially patient had SIRS on arrival, chest x-ray was negative CTA chest showed multifocal pneumonia at 00:30 at that time criteria for sepsis met. Differential Diagnosis Acute abdomen/small-bowel obstructions /pneumonia/UTI Consult Healthcare Provider Management of the patient was discussed with: Hospitalist Lab Data [facility] Lab Attestation statement: I reviewed the patient's lab results. 07/29/22 18:51 07/29/22 19:42 Labs: Lab Results 07/29/22 07/29/22 07/29/22 Range/Units 18:51 18:51 18:51 WBC 24.3 H (4.8-10.8) X10*3/uL RBC 4.19 L (4.20-5.50) X10*6/uL Hgb 12.7 (12.0-16.0) g/dl Hct 38.1 (37.0-47.0) % MCV 90.9 (80.0-98.0) fL MCH 30.3 (27.0-33.0) pg MCHC 33.3 (31.0-35.0) g/dl RDW 14.3 (11.0-16.0) % Plt Count 477 H D (160-400) X10*3/uL MPV 9.0 L (9.4-12.3) fL Immature Gran % (Auto) 0.6 H (0.0-0.4) % Neut % (Auto) 90.8 H (45-73) % Lymph % (Auto) 4.6 L (20-40) % [place] % (Auto) 3.7 (2-11) % Eos % (Auto) 0.0 (0-4) % Baso % (Auto) 0.3 (0-2) % Lymph # (Auto) 1.1 L (1.2-4.9) X10*3/uL [place] # (Auto) 0.9 (0.1-1.2) X10*3/uL Eos # (Auto) 0.0 (0.0-0.4) X10*3/uL Baso # (Auto) 0.1 (0.0-0.2) X10*3/uL Abs Immat Gran (auto) 0.15 H (0.00-0.03) X10*3/uL Absolute Neuts (auto) 22.1 H (2.0-8.3) x10*3/uL Absolute Nucleated RBC 0.000 (0.0-0.012) X10*3/uL Nucleated RBC % (auto) 0.0 (0.0-0.2) /100WBC PT 25.8 H (10.0-13.1) SEC INR 2.2 H (0.9-1.1) O2 Saturation % ABG pH at Pt Temp (7.35-7.45) ABG pCO2 at Pt Temp (32-45) mmHg ABG pO2 at Pt Temp (83-108) mmHg ABG HCO3 (22-26) mmol/L ABG Base Excess (Actual) mmol/L Sodium (135-145) mmol/L Potassium (3.3-5.1) mmol/L Chloride (96-108) mmol/L Carbon Dioxide (22-29) mmol/L Anion Gap (12-20) BUN (9-16) mg/dL Creatinine (0.5-1.4) mg/dL Estim Creat Clear Calc Estimated GFR Random Glucose (60-115) mg/dL Lactic Acid (0.5-2.0) mmol/L Calcium (8.4-10.2) mg/dL Total Bilirubin (0.0-1.0) mg/dL AST (5-31) U/L ALT (0-31) U/L Alkaline Phosphatase (39-117) U/L Troponin I High Sens (<3.5-17.0) ng/L B-Natriuretic Peptide (<100) pg/mL Total Protein (6.5-8.0) g/dL Albumin (3.5-5.0) g/dL Lipase (8-78) U/L Urine Color Urine Appearance Urine pH (5.0-9.0) Ur Specific [place] (1.005-1.025) Urine Protein (Neg-Trace) mg/dL Urine Glucose (UA) (Negative) mg/dL Urine Ketones (Negative) mg/dL Urine Blood (Negative) Urine Nitrite (Negative) Ur Leukocyte Esterase (Negative) Urine RBC (0-2) /HPF Urine WBC (0-5) /HPF Ur Squamous Epith Cells (0-2) /HPF Urine Bacteria (None Seen) Hyaline Casts (0-2) /LPF COVID-19 ([facility]ON) Negative (Negative) COVID-19 Clin Com See Note 07/29/22 07/29/22 07/29/22 Range/Units 18:51 18:51 18:51 WBC (4.8-10.8) X10*3/uL RBC (4.20-5.50) X10*6/uL Hgb (12.0-16.0) g/dl Hct (37.0-47.0) % MCV (80.0-98.0) fL MCH (27.0-33.0) pg MCHC (31.0-35.0) g/dl RDW (11.0-16.0) % Plt Count (160-400) X10*3/uL MPV (9.4-12.3) fL Immature Gran % (Auto) (0.0-0.4) % Neut % (Auto) (45-73) % Lymph % (Auto) (20-40) % [place] % (Auto) (2-11) % Eos % (Auto) (0-4) % Baso % (Auto) (0-2) % Lymph # (Auto) (1.2-4.9) X10*3/uL [place] # (Auto) (0.1-1.2) X10*3/uL Eos # (Auto) (0.0-0.4) X10*3/uL Baso # (Auto) (0.0-0.2) X10*3/uL Abs Immat Gran (auto) (0.00-0.03) X10*3/uL Absolute Neuts (auto) (2.0-8.3) x10*3/uL Absolute Nucleated RBC (0.0-0.012) X10*3/uL Nucleated RBC % (auto) (0.0-0.2) /100WBC PT (10.0-13.1) SEC INR (0.9-1.1) O2 Saturation % ABG pH at Pt Temp (7.35-7.45) ABG pCO2 at Pt Temp (32-45) mmHg ABG pO2 at Pt Temp (83-108) mmHg ABG HCO3 (22-26) mmol/L ABG Base Excess (Actual) mmol/L Sodium (135-145) mmol/L Potassium (3.3-5.1) mmol/L Chloride (96-108) mmol/L Carbon Dioxide (22-29) mmol/L Anion Gap (12-20) BUN (9-16) mg/dL Creatinine (0.5-1.4) mg/dL Estim Creat Clear Calc Estimated GFR Random Glucose (60-115) mg/dL Lactic Acid 2.0 (0.5-2.0) mmol/L Calcium (8.4-10.2) mg/dL Total Bilirubin (0.0-1.0) mg/dL AST (5-31) U/L ALT (0-31) U/L Alkaline Phosphatase (39-117) U/L Troponin I High Sens 12.0 (<3.5-17.0) ng/L B-Natriuretic Peptide 537 H (<100) pg/mL Total Protein (6.5-8.0) g/dL Albumin (3.5-5.0) g/dL Lipase (8-78) U/L Urine Color Urine Appearance Urine pH (5.0-9.0) Ur Specific [place] (1.005-1.025) Urine Protein (Neg-Trace) mg/dL Urine Glucose (UA) (Negative) mg/dL Urine Ketones (Negative) mg/dL Urine Blood (Negative) Urine Nitrite (Negative) Ur Leukocyte Esterase (Negative) Urine RBC (0-2) /HPF Urine WBC (0-5) /HPF Ur Squamous Epith Cells (0-2) /HPF Urine Bacteria (None Seen) Hyaline Casts (0-2) /LPF COVID-19 ([facility]ON) (Negative) COVID-19 Clin Com 07/29/22 07/29/22 07/29/22 Range/Units 19:42 22:44 23:33 WBC (4.8-10.8) X10*3/uL RBC (4.20-5.50) X10*6/uL Hgb (12.0-16.0) g/dl Hct (37.0-47.0) % MCV (80.0-98.0) fL MCH (27.0-33.0) pg MCHC (31.0-35.0) g/dl RDW (11.0-16.0) % Plt Count (160-400) X10*3/uL MPV (9.4-12.3) fL Immature Gran % (Auto) (0.0-0.4) % Neut % (Auto) (45-73) % Lymph % (Auto) (20-40) % [place] % (Auto) (2-11) % Eos % (Auto) (0-4) % Baso % (Auto) (0-2) % Lymph # (Auto) (1.2-4.9) X10*3/uL [place] # (Auto) (0.1-1.2) X10*3/uL Eos # (Auto) (0.0-0.4) X10*3/uL Baso # (Auto) (0.0-0.2) X10*3/uL Abs Immat Gran (auto) (0.00-0.03) X10*3/uL Absolute Neuts (auto) (2.0-8.3) x10*3/uL Absolute Nucleated RBC (0.0-0.012) X10*3/uL Nucleated RBC % (auto) (0.0-0.2) /100WBC PT (10.0-13.1) SEC INR (0.9-1.1) O2 Saturation 95.0 % ABG pH at Pt Temp 7.52 H (7.35-7.45) ABG pCO2 at Pt Temp 32 (32-45) mmHg ABG pO2 at Pt Temp 75 L (83-108) mmHg ABG HCO3 26 (22-26) mmol/L ABG Base Excess (Actual) 4.0 mmol/L Sodium 133 L (135-145) mmol/L Potassium 3.9 (3.3-5.1) mmol/L Chloride 98 (96-108) mmol/L Carbon Dioxide 23 (22-29) mmol/L Anion Gap 16 (12-20) BUN 13 (9-16) mg/dL Creatinine 0.65 (0.5-1.4) mg/dL Estim Creat Clear Calc 75.1 Estimated GFR > 60 Random Glucose 147 H (60-115) mg/dL Lactic Acid (0.5-2.0) mmol/L Calcium 9.5 (8.4-10.2) mg/dL Total Bilirubin 1.0 (0.0-1.0) mg/dL AST 11 (5-31) U/L ALT 9 (0-31) U/L Alkaline Phosphatase 120 H (39-117) U/L Troponin I High Sens (<3.5-17.0) ng/L B-Natriuretic Peptide (<100) pg/mL Total Protein 5.8 L (6.5-8.0) g/dL Albumin 3.2 L (3.5-5.0) g/dL Lipase 5 L (8-78) U/L Urine Color Dark Yellow Urine Appearance Cloudy Urine pH 5.5 (5.0-9.0) Ur Specific [place] >= 1.030 H (1.005-1.025) Urine Protein Trace (Neg-Trace) mg/dL Urine Glucose (UA) Negative (Negative) mg/dL Urine Ketones Negative (Negative) mg/dL Urine Blood Trace H (Negative) Urine Nitrite Negative (Negative) Ur Leukocyte Esterase Trace H (Negative) Urine RBC 6-10 H (0-2) /HPF Urine WBC 0-5 (0-5) /HPF Ur Squamous Epith Cells 6-10 (0-2) /HPF Urine Bacteria None Seen (None Seen) Hyaline Casts 3-5 (0-2) /LPF COVID-19 ([facility]ON) (Negative) COVID-19 Clin Com Independent Interpretation I performed an independent interpretation of an: EKG Interpretation: Sinus tachycardia with heart rate 102 beats per minute LVH no acute ST T wave changes no acute ischemia Discharge Plan Discharge Clinical Impression: Multifocal pneumonia, Acute thrombosis of inferior vena cava Patient Disposition: Admitted As Inpatient
--- NOTE | 2022-07-29 18:31 | ECG_ITS ---
Test Reason : sob Blood Pressure : / mmHG Vent. Rate : 102 BPM Atrial Rate : 102 BPM P-R Int : 126 ms QRS Dur : 120 ms QT Int : 370 ms P-R-T Axes : 051 -20 133 degrees QTc Int : 482 ms Sinus tachycardia Left bundle branch block Abnormal ECG When compared with ECG of 13-JUN-2022 16:42, No significant changes seen Referred By: Von Crandall Electronically Signed By:MARY DELGADO MD
[2022-07-29 18:58] LABS: MANUAL DIFF FLAG NO
[2022-07-29 19:00] LABS: Basophils Absolute Auto 0.1 X10*3/uL (0.0-0.2); Basophils Percent Auto 0.3 % (0-2); Hematocrit 38.1 % (37.0-47.0); Hemoglobin 12.7 g/dl (12.0-16.0); Imm Gran Abs Auto 0.15 X10*3/uL (0.00-0.03); Imm Gran Pct Auto 0.6 % (0.0-0.4); Lymphocytes Absolute Auto 1.1 X10*3/uL (1.2-4.9); Lymphocytes Percent Auto 4.6 % (20-40); Mean Corpuscular HGB Conc 33.3 g/dl (31.0-35.0); Mean Corpuscular Hemoglobin 30.3 pg (27.0-33.0); Mean Corpuscular Volume 90.9 fL (80.0-98.0); Monocytes Absolute Auto 0.9 X10*3/uL (0.1-1.2); Monocytes Percent Auto 3.7 % (2-11); Neutrophils Absolute Auto 22.1 x10*3/uL (2.0-8.3); Neutrophils Percent Auto 90.8 % (45-73); Platelet Count 477 X10*3/uL (160-400); Red Blood Count 4.19 X10*6/uL (4.20-5.50); Red Cell Distribution Width 14.3 % (11.0-16.0); SCAN SMEAR FLAG 1; White Blood Count 24.3 X10*3/uL (4.8-10.8)
[2022-07-29 19:06] LABS: INTERNATIONAL NORM RATIO 2.2 (0.9-1.1); Prothrombin Time 25.8 SEC (10.0-13.1)
[2022-07-29 19:18] LABS: B Type Natriuretic Peptide 537 pg/mL (<100)
[2022-07-29 19:25] LABS: COVID-19 Test Negative (Negative); IDNOW Serial# 6674DD1D
[2022-07-29] MEDS: Piperacillin Sodium/Tazobactam 3.375 GM in 0.9 % Sodium Chloride 50 ML IV (20:42)
[2022-07-29 20:56] LABS: Alanine Aminotransferase 9 U/L (0-31); Albumin Level 3.2 g/dL (3.5-5.0); Alkaline Phosphatase 120 U/L (39-117); Anion Gap 16 (12-20); Aspartate Amino Transferase 11 U/L (5-31); Blood Urea Nitrogen 13 mg/dL (9-16); Calcium 9.5 mg/dL (8.4-10.2); Carbon Dioxide 23 mmol/L (22-29); Chloride 98 mmol/L (96-108); Creatinine Clr Calc Pharmacy 75.1; Estimated Glomerular Filt Rate > 60; Glucose Random 147 mg/dL (60-115); Lipase 5 U/L (8-78); Potassium 3.9 mmol/L (3.3-5.1); Sodium 133 mmol/L (135-145); Total Protein 5.8 g/dL (6.5-8.0)
[2022-07-29 22:55] LABS: Appearance Urine Cloudy; Color Urine Dark Yellow; Glucose Urine UA Negative (Negative); Leukocyte Esterase Urine Trace (Negative); Nitrite Urine Negative (Negative); PH 5.5 (5.0-9.0); Specific Gravity - Urine >= 1.030 (1.005-1.025); UMIC TRIGGER UACC YES; Urine Blood Trace (Negative); Urine Ketones Negative (Negative); Urine Protein Trace mg/dL (Neg-Trace)
[2022-07-29 23:06] LABS: Bacteria Urine None Seen (None Seen); WBC Urine 0-5 /HPF (0-5)
[2022-07-29 23:41] LABS: ABG HCO3 26 mmol/L (22-26); ABG pCO2 32 mmHg (32-45); ABG pH 7.52 (7.35-7.45); ABG pO2 75 mmHg (83-108)
[2022-07-29 23:57] VITALS: BP 162/65; PULSE 85; RESP 25; TEMP 36.7; O2SAT 96
[2022-07-30] MEDS: iohexoL 350 MG/ML 100 ML INFUS..BTL 85 ML IV (00:05)
--- NOTE | 2022-07-30 01:10 | PM.IMHP ---
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 Patient is a poor historian and history was obtained by chart review and ER provider. Patient with productive cough that started about 1 day prior to presentation. Associated with nausea and fever. Patient was found to be hypoxemic and saturating 80% on room air. Unable to obtain review of systems Review of Systems Review of Systems: Yes Unobtainable due to mental condition [facility] Medical History Aortic stenosis Asthma Diabetes HTN (hypertension) Hyperlipidemia Pulmonary hypertension Social History Household Members: Family Housing: House Do you presently have visiting nurse or other home services: Yes Alcohol intake: never Patient Tobacco Use Status: Never used Tobacco Advance Directives: Yes Advance Directives on File: Yes Advance Directives Date on File: 02/19/22 service: No Meds Allergies Allergy/AdvReac Type Severity Reaction Status Date / Time aspirin [ASPIRIN] Allergy Intermediate NUMBNESS Verified 06/13/22 15:34 Penicillins [PENICILLINS] Allergy Intermediate RASH Verified 06/13/22 15:34 penicillin V Allergy Unknown Rash Verified 06/13/22 15:34 potassium Allergy Unknown Unknown Verified 06/13/22 15:34 Active Medications: Current Medications Acetaminophen (Acetaminophen 325 Mg Tablet) 650 mg PO Q6H PRN PRN Reason: Pain, Mild (Pain Scale 1-3) Enoxaparin Sodium (Enoxaparin Sodium 80 Mg/0.8 Ml Syringe) 80 mg 1 mg/kg (80 mg) SUBCUT BID GALE Sodium Chloride (Ns) 1,000 mls @ 999 mls/hr IV .Q1H1M ONE Stop: 07/30/22 01:48 Ceftriaxone Sodium 1 gm/ (Sodium Chloride) 50 mls @ 100 mls/hr IV Q24H GALE Azithromycin 500 mg/ Sodium (Chloride) 250 mls @ 125 mls/hr IV Q24H [facility] Melatonin (Melatonin 3 Mg Tablet) 6 mg PO BEDTIME PRN PRN Reason: Insomnia Ondansetron HCl (Ondansetron Hcl 4 Mg/2 Ml Vial) 4 mg IVPUSH Q8H PRN PRN Reason: Nausea and Vomiting Sodium Chloride (0.9 % Sodium Chloride Flush 3 Ml Syringe) 3 ml IVFLUSH [facility] Home Medications Medication Instructions Recorded Confirmed Last Taken Type acetaminophen 500 mg tablet 1 tab PO Q8H PRN Pain 04/10/21 02/13/22 Unknown History amlodipine 5 mg tablet 1 tab PO DAILY 04/10/21 02/13/22 02/12/22 History cholecalciferol (vitamin D3) 25 1 tab PO DAILY 04/10/21 02/13/22 02/12/22 History mcg (1,000 unit) tablet clopidogrel 75 mg tablet 1 tab PO DAILY 04/10/21 02/13/22 02/12/22 History furosemide 20 mg tablet 0.5 tab PO DAILY 04/10/21 02/13/22 02/12/22 History pravastatin 40 mg tablet 1 tab PO BEDTIME 04/10/21 02/13/22 02/12/22 History valsartan 320 mg tablet (Diovan) 1 tab PO DAILY 04/10/21 02/13/22 02/12/22 History Physical Exam Vital Signs and Narrative: Vital Signs: Last Vital Signs Temp 98.0 F 07/29/22 23:57 Pulse 85 07/29/22 23:57 Resp 25 H 07/29/22 23:57 BP 162/65 H 07/29/22 23:57 Pulse Ox 96 07/29/22 23:57 O2 Del Method 07/29/22 23:57 Oxygen Flow Rate 4 07/29/22 18:14 BMI result Body Mass Index 32.9 Elderly female lying in bed on 4 L supplemental oxygen Neck supple, no JVD Regular rate and rhythm, S1-S2 heard Left-sided crackles without wheezing Abdomen soft nontender, no guarding, no rigidity Patient is awake, alert and oriented to self, disoriented to place, time and person ; no focal motor deficit Psych: Normal mood No pedal edema Results Labs 07/29/22 18:51 07/29/22 19:42 Labs: Laboratory Results - last 24 hr 07/29/22 07/29/22 07/29/22 18:51 18:51 18:51 MCV 90.9 MCH 30.3 MCHC 33.3 RDW 14.3 Plt Count 477 H D MPV 9.0 L Immature Gran % (Auto) 0.6 H Neut % (Auto) 90.8 H Lymph % (Auto) 4.6 L [place] % (Auto) 3.7 Eos % (Auto) 0.0 Baso % (Auto) 0.3 Lymph # (Auto) 1.1 L [place] # (Auto) 0.9 Eos # (Auto) 0.0 Baso # (Auto) 0.1 Abs Immat Gran (auto) 0.15 H Absolute Neuts (auto) 22.1 H Absolute Nucleated RBC 0.000 Nucleated RBC % (auto) 0.0 PT 25.8 H INR 2.2 H O2 Saturation ABG pH at Pt Temp ABG pCO2 at Pt Temp ABG pO2 at Pt Temp ABG HCO3 ABG Base Excess (Actual) Anion Gap Estim Creat Clear Calc Estimated GFR Random Glucose Lactic Acid Calcium Total Bilirubin AST ALT Alkaline Phosphatase Troponin I High Sens B-Natriuretic Peptide Total Protein Albumin Lipase Urine Color Urine Appearance Urine pH Ur Specific [place] Urine Protein Urine Glucose (UA) Urine Ketones Urine Blood Urine Nitrite Ur Leukocyte Esterase Urine RBC Urine WBC Ur Squamous Epith Cells Urine Bacteria Hyaline Casts COVID-19 ([facility]) Negative COVID-Medialets Com See Note 07/29/22 07/29/22 07/29/22 18:51 18:51 18:51 MCV MCH MCHC RDW Plt Count MPV Immature Gran % (Auto) Neut % (Auto) Lymph % (Auto) [place] % (Auto) Eos % (Auto) Baso % (Auto) Lymph # (Auto) [place] # (Auto) Eos # (Auto) Baso # (Auto) Abs Immat Gran (auto) Absolute Neuts (auto) Absolute Nucleated RBC Nucleated RBC % (auto) PT INR O2 Saturation ABG pH at Pt Temp ABG pCO2 at Pt Temp ABG pO2 at Pt Temp ABG HCO3 ABG Base Excess (Actual) Anion Gap Estim Creat Clear Calc Estimated GFR Random Glucose Lactic Acid 2.0 Calcium Total Bilirubin AST ALT Alkaline Phosphatase Troponin I High Sens 12.0 B-Natriuretic Peptide 537 H Total Protein Albumin Lipase Urine Color Urine Appearance Urine pH Ur Specific [place] Urine Protein Urine Glucose (UA) Urine Ketones Urine Blood Urine Nitrite Ur Leukocyte Esterase Urine RBC Urine WBC Ur Squamous Epith Cells Urine Bacteria Hyaline Casts COVID-19 ([facility]) COVID-19 Clin Com 07/29/22 07/29/22 07/29/22 19:42 22:44 23:33 MCV MCH MCHC RDW Plt Count MPV Immature Gran % (Auto) Neut % (Auto) Lymph % (Auto) [place] % (Auto) Eos % (Auto) Baso % (Auto) Lymph # (Auto) [place] # (Auto) Eos # (Auto) Baso # (Auto) Abs Immat Gran (auto) Absolute Neuts (auto) Absolute Nucleated RBC Nucleated RBC % (auto) PT INR O2 Saturation 95.0 ABG pH at Pt Temp 7.52 H ABG pCO2 at Pt Temp 32 ABG pO2 at Pt Temp 75 L ABG HCO3 26 ABG Base Excess (Actual) 4.0 Anion Gap 16 Estim Creat Clear Calc 75.1 Estimated GFR > 60 Random Glucose 147 H Lactic Acid Calcium 9.5 Total Bilirubin 1.0 AST 11 ALT 9 Alkaline Phosphatase 120 H Troponin I High Sens B-Natriuretic Peptide Total Protein 5.8 L Albumin 3.2 L Lipase 5 L Urine Color Dark Yellow Urine Appearance Cloudy Urine pH 5.5 Ur Specific [place] >= 1.030 H Urine Protein Trace Urine Glucose (UA) Negative Urine Ketones Negative Urine Blood Trace H Urine Nitrite Negative Ur Leukocyte Esterase Trace H Urine RBC 6-10 H Urine WBC 0-5 Ur Squamous Epith Cells 6-10 Urine Bacteria None Seen Hyaline Casts 3-5 COVID-19 ([facility]) COVID-19 Clin Com Imaging Radiologist's Impressions: Impressions Chest X-Ray 07/29/22 19:07 IMPRESSION: No active cardiopulmonary disease Abdomen/Pelvis CT 07/29/22 20:34 IMPRESSION: 1. Gaseous distention of the nondependent colonic bowel loops without transition point or point of obstruction. This is new since CAT scan 02/13/2022. No bowel wall thickening or edema. 2. Bilateral nonobstructive renal stones. No hydroureter or ureteral calculi. Fleischner guidelines were followed. Abdomen/Pelvis CT 07/29/22 23:59 IMPRESSION: 1. Area of dense consolidation in the posterior left lower lobe along with scattered multifocal regions of groundglass opacity bilaterally, suspicious for multifocal pneumonia. 2. Hypodensity in the infrarenal IVC most consistent with thrombus. 3. Redemonstrated predominantly gaseous distention of much of the colon, similar to prior. 4. Coronary artery calcifications. Correlation with cardiac risk factors is recommended. This critical result was discussed with Dr. Payne on 07/30/2022 12:39 AM, and it was ascertained that the content and urgency of the report was understood at the time of direct communication. Chest CT 07/29/22 23:59 IMPRESSION: 1. Area of dense consolidation in the posterior left lower lobe along with scattered multifocal regions of groundglass opacity bilaterally, suspicious for multifocal pneumonia. 2. Hypodensity in the infrarenal IVC most consistent with thrombus. 3. Redemonstrated predominantly gaseous distention of much of the colon, similar to prior. 4. Coronary artery calcifications. Correlation with cardiac risk factors is recommended. This critical result was discussed with Dr. Payne on 07/30/2022 12:39 AM, and it was ascertained that the content and urgency of the report was understood at the time of direct communication. 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 #. Sepsis due to left-sided pneumonia #. Acute hypoxemic respiratory failure in the setting of above -resuscitated with IV crystalloids in the ER. Initiating empiric IV antibiotics Rocephin and azithromycin. Lactic acid and blood culture obtained -maintain oxygen saturation greater than 90% and wean as tolerated. Currently requiring 4 L supplemental oxygen #. Acute IVC thrombus: Noted on imaging. As per home medication list, patient is on Eliquis. ?Eliquis failure. Initiating therapeutic Lovenox and consulting Hematology for further recommendations. #. Essential hypertension: Hold antihypertensive in the setting of sepsis. Resume as appropriate #. Mixed hyperlipidemia: On statin #. Coronary artery disease: On statin and Plavix DVT prophylaxis: Lovenox 80 mg b.i.d. Full code Cardiac diet Admit as inpatient and will require two night minimum hospital stay for IV antibiotics and supplemental oxygen Time Spent With Patient Time: Total time managing care of this patient today ____ minutes. Quality Stroke Does the patient have a stroke diagnosis?: No VTE Prior VTE?: No VTE Risk Level:: Medical - moderate - high VTE Device Contraindication: Treatment Not Indicated VTE Drug Contraindication: N/A - Med Ordered
[2022-07-30 01:32] LABS: ABG Refer to POC result
[2022-07-30] MEDS: cefTRIAXone sodium 1 GM in 0.9 % Sodium Chloride 50 ML IV (01:36)
[2022-07-30] MEDS: Enoxaparin Sodium 80 MG/0.8 ML SYRINGE SUBCUT (01:36)
[2022-07-30] MEDS: 0.9 % Sodium Chloride 1,000 ML 999 ML IV (01:37)
[2022-07-30] MEDS: Azithromycin 500 MG in 0.9 % Sodium Chloride 250 ML 125 MG IV (01:58)
--- NOTE | 2022-07-30 02:24 | PC.NURSE ---
Med req completed
[2022-07-30 03:02] LABS: MANUAL DIFF FLAG NO
[2022-07-30 03:03] LABS: Basophils Absolute Auto 0.1 X10*3/uL (0.0-0.2); Basophils Percent Auto 0.4 % (0-2); Hematocrit 33.1 % (37.0-47.0); Imm Gran Abs Auto 0.15 X10*3/uL (0.00-0.03); Imm Gran Pct Auto 0.7 % (0.0-0.4); Lymphocytes Absolute Auto 1.3 X10*3/uL (1.2-4.9); Lymphocytes Percent Auto 6.2 % (20-40); Mean Corpuscular HGB Conc 33.2 g/dl (31.0-35.0); Mean Corpuscular Hemoglobin 30.1 pg (27.0-33.0); Mean Corpuscular Volume 90.4 fL (80.0-98.0); Mean Platelet Volume 8.9 fL (9.4-12.3); Monocytes Absolute Auto 0.8 X10*3/uL (0.1-1.2); Monocytes Percent Auto 3.8 % (2-11); Neutrophils Absolute Auto 18.6 x10*3/uL (2.0-8.3); Neutrophils Percent Auto 88.9 % (45-73); Platelet Count 398 X10*3/uL (160-400); Red Blood Count 3.66 X10*6/uL (4.20-5.50); Red Cell Distribution Width 14.2 % (11.0-16.0)
[2022-07-30 03:19] LABS: Anion Gap 14 (12-20); Blood Urea Nitrogen 11 mg/dL (9-16); Calcium 8.4 mg/dL (8.4-10.2); Carbon Dioxide 20 mmol/L (22-29); Chloride 105 mmol/L (96-108); Creatinine Clr Calc Pharmacy 97.7; Estimated Glomerular Filt Rate > 60; Glucose Random 110 mg/dL (60-115); Potassium 3.3 mmol/L (3.3-5.1); Sodium 136 mmol/L (135-145)
--- NOTE | 2022-07-30 03:47 | PC.NURSE ---
Pt sleeping at the bedside in no apparent distress. Breaths are even and unlabored with equal chest rises. Will continue monitor.
[2022-07-30] MEDS: polyethylene glycoL 3350 17 GM POWD.PACK PO (06:53)
[2022-07-30 07:23] VITALS: BP 125/75; PULSE 89; RESP 16; O2SAT 95
[2022-07-30 08:12] VITALS: BP 121/63; PULSE 96; RESP 18; O2SAT 91
[2022-07-30] MEDS: ondansetron HCL 4 MG/2 ML VIAL IVPUSH (08:34)
--- NOTE | 2022-07-30 08:34 | PC.NURSE ---
medicated for nausea, alert, denies pain or sob
[2022-07-30] MEDS: Sertraline HCL 25 MG TABLET PO (09:06)
[2022-07-30] MEDS: Gabapentin 400 MG CAPSULE PO ×3 (09:06→22:12)
[2022-07-30] MEDS: amLODIPine Besylate 5 MG TABLET PO (09:06)
[2022-07-30] MEDS: Furosemide 20 MG TABLET 10 MG PO (09:07)
[2022-07-30] MEDS: Clopidogrel Bisulfate 75 MG TABLET PO (09:07)
[2022-07-30] MEDS: 0.9 % Sodium Chloride Flush 3 ML SYRINGE IVFLUSH ×2 (09:09→22:12)
[2022-07-30] MEDS: Cholecalciferol (Vitamin D3) 25 MCG TABLET PO (09:10)
[2022-07-30] MEDS: Valsartan 320 MG TABLET PO (09:32)
--- NOTE | 2022-07-30 10:29 | PM.EVENT ---
Event Note Date of Service: 07/30/22 Event Note: Pt see/examined , record reviewed. Admitted this morning with PNA, hypoxia. A/P per H and P from this morning, continue Abx, wean off O2 Time Spent With Patient Time: Total time managing care of this patient today ____ minutes.
--- NOTE | 2022-07-30 10:41 | MHC.EDTECH ---
pt transferred to inpatient bed. pt cleaned and bed linens changed. purwick in place
--- NOTE | 2022-07-30 13:06 | PM.HEMONCCN ---
Subjective - Subjective Chief complaint: Unable to obtain Patient: new to practice Consult date: 07/30/22 Primary Care Provider: Unknown Physician HPI - Consult Narrative Reason for consult: Thrombus in IVC Narrative: Harleen Edward is a 76 year old woman who is admitted for hypoxemia. Patient is not able to provide history, she is rather somnolent. As per chart, patient developed a productive cough associated with fever and nausea. She was found to be hypoxemic, saturating 80% on room air. She had undergone recent AKA in May 2022 and was residing at a senior living. [facility] Medical History: Medical History (Last Updated 07/30/22 @ 16:10 by Lindsay Squires MD) Aortic stenosis Asthma Diabetes HTN (hypertension) Hyperlipidemia Pulmonary hypertension Unilateral AKA Social History: Social History (Last Reviewed 07/30/22 @ 01:13 by Jin Payne MD) Living Situation History: Household Members: Family Housing: House Do you presently have visiting nurse or other home services: Yes Tobacco History: Patient Tobacco Use Status: Never used Tobacco Smoked in Last 30 Days: No Substance Use History: Use of substances other than those prescribed or required for medical reasons: No Advance Directives: Advance Directives: Yes Advance Directives on File: Yes Advance Directives Date on File: 02/19/22 Nutrition Assessment: Nutrition Risks: No Nutritional Risk Occupation Assessmet: service: No Home Medications and Allergies Current Medications: Current Medications Acetaminophen (Acetaminophen 325 Mg Tablet) 650 mg PO Q6H PRN PRN Reason: Pain, Mild (Pain Scale 1-3) Amlodipine Besylate (Amlodipine Besylate 5 Mg Tablet) 5 mg PO DAILY [facility]; Protocol Last Admin: 07/30/22 09:06 Dose: 5 mg Apixaban (Apixaban 5 Mg Tablet) 5 mg PO BID@0600,1800 [facility] Clopidogrel Bisulfate (Clopidogrel Bisulfate 75 Mg Tablet) 75 mg PO DAILY [facility] Last Admin: 07/30/22 09:07 Dose: 75 mg Furosemide (Furosemide 20 Mg Tablet) 10 mg PO DAILY [facility]; Protocol Last Admin: 07/30/22 09:07 Dose: 10 mg Gabapentin (Gabapentin 400 Mg Capsule) 400 mg PO TID [facility] Last Admin: 07/30/22 09:06 Dose: 400 mg Ceftriaxone Sodium 1 gm/ (Sodium Chloride) 50 mls @ 100 mls/hr IV Q24H [facility] Last Infusion: 07/30/22 01:57 Dose: Infused Azithromycin 500 mg/ Sodium (Chloride) 250 mls @ 125 mls/hr IV Q24H [facility] Last Infusion: 07/30/22 03:48 Dose: Infused Melatonin (Melatonin 3 Mg Tablet) 6 mg PO BEDTIME PRN PRN Reason: Insomnia Metformin HCl (Metformin Hcl Er 500 Mg Tab.Er.24h) 1,000 mg PO DAILY@1700 [facility] Omeprazole (Omeprazole 20 Mg Capsule.Dr) 20 mg PO DAILY@0630 [facility] Ondansetron HCl (Ondansetron Hcl 4 Mg/2 Ml Vial) 4 mg IVPUSH Q8H PRN PRN Reason: Nausea and Vomiting Last Admin: 07/30/22 08:34 Dose: 4 mg Oxycodone HCl (Oxycodone Hcl Immed Release 5 Mg Tablet) 5 mg PO Q6H PRN PRN Reason: Pain, Severe (Pain Scale 7-10) Pravastatin Sodium (Pravastatin Sodium 40 Mg Tablet) 40 mg PO BEDTIME [facility] Sertraline HCl (Sertraline Hcl 25 Mg Tablet) 25 mg PO DAILY [facility] Last Admin: 07/30/22 09:06 Dose: 25 mg Sodium Chloride (0.9 % Sodium Chloride Flush 3 Ml Syringe) [address] [facility] Last Admin: 07/30/22 09:09 Dose: 3 ml Valsartan (Valsartan 320 Mg Tablet) 320 mg PO DAILY [facility]; Protocol Last Admin: 07/30/22 09:32 Dose: 320 mg Vitamin D (Cholecalciferol (Vitamin D3) 25 Mcg Tablet) 25 mcg PO DAILY [facility] Last Admin: 07/30/22 09:10 Dose: 25 mcg Home Medications Medication Instructions Recorded Confirmed Type acetaminophen 500 mg tablet 1 tab PO Q8H PRN Pain 04/10/21 07/30/22 History amlodipine 5 mg tablet 1 tab PO DAILY 04/10/21 07/30/22 History cholecalciferol (vitamin D3) 25 1 tab PO DAILY 04/10/21 07/30/22 History mcg (1,000 unit) tablet clopidogrel 75 mg tablet 1 tab PO DAILY 04/10/21 07/30/22 History furosemide 20 mg tablet 0.5 tab PO DAILY 04/10/21 07/30/22 History pravastatin 40 mg tablet 1 tab PO BEDTIME 04/10/21 07/30/22 History valsartan 320 mg tablet (Diovan) 1 tab PO DAILY 04/10/21 07/30/22 History apixaban 5 mg tablet (Eliquis) 1 tab PO BID 07/30/22 07/30/22 History gabapentin 400 mg capsule 1 cap PO TID 07/30/22 07/30/22 History loperamide 2 mg capsule 2 cap PO Q6H 07/30/22 07/30/22 History melatonin 3 mg tablet 3 mg PO BEDTIME PRN Sleep 07/30/22 07/30/22 History metformin 500 mg tablet,extended 2 tab PO QPM 07/30/22 07/30/22 History release 24 hr pantoprazole 40 mg tablet,delayed 1 tab PO DAILY 07/30/22 07/30/22 History release sertraline 25 mg tablet 1 tab PO DAILY 07/30/22 07/30/22 History Allergies Allergy/AdvReac Type Severity Reaction Status Date / Time aspirin [ASPIRIN] Allergy Intermediate NUMBNESS Verified 06/13/22 15:34 Penicillins [PENICILLINS] Allergy Intermediate RASH Verified 06/13/22 15:34 penicillin V Allergy Unknown Rash Verified 06/13/22 15:34 potassium Allergy Unknown Unknown Verified 06/13/22 15:34 Physical Exam Vital signs: Vital Signs Temp 98.0 F 07/29/22 23:57 Pulse 96 07/30/22 08:12 Resp 18 07/30/22 08:12 BP 121/63 07/30/22 08:12 Pulse Ox 91 L 07/30/22 08:12 O2 Del Method 07/30/22 08:12 O2 Flow Rate 4 07/30/22 08:12 Intake & Output 07/29/22 07/30/22 07/30/22 18:59 06:59 18:59 Intake Total 1350 / 1350 Balance 1350 / 1350 Intake: Intake, IV Amount 1350 / 1350 0.9 % Sodium Chloride 1,000 ml 1000 / 1000 @ 999 mls/hr IV .Q1H1M ONE Rx#: [id number] Azithromycin 500 mg In 0.9 % 250 / 250 Sodium Chloride 250 ml @ 125 mls/hr IV Q24H [facility] Rx#: [id number] Piperacillin Sodium/Tazobactam 50 / 50 3.375 gm In 0.9 % Sodium Chloride 50 ml @ 100 mls/hr IV ONCE ONE Rx#:[id number] cefTRIAXone sodium 1 gm In 0.9 50 / 50 % Sodium Chloride 50 ml @ 100 mls/hr IV Q24H [facility] Rx#: [id number] Other: Weight 81.647 kg Weight 81.647 kg - Constitutional Present: no acute distress, somnolent - Routine HEENT Exam Head: Present: normal inspection Eye: Present: PERRL - Routine Neck Exam Absent: lymphadenopathy - Routine Respiratory Exam Absent: accessory muscle use - Routine Cardiovascular Exam Cardiovascular: Present: S1, S2 Hem/Onc Consult Result - Labs CBC & Chem 7: 07/30/22 02:58 07/30/22 02:58 Labs: Short CBC 07/29/22 07/30/22 Range/Units 18:51 02:58 WBC 24.3 H 21.0 H (4.8-10.8) X10*3/uL Hgb 12.7 11.0 L (12.0-16.0) g/dl Hct 38.1 33.1 L (37.0-47.0) % Plt Count 477 H D 398 (160-400) X10*3/uL BMP 07/29/22 07/30/22 19:42 02:58 Sodium 133 L 136 Potassium 3.9 3.3 Chloride 98 105 Carbon Dioxide 23 20 L BUN 13 11 Creatinine 0.65 0.50 Calcium 9.5 8.4 D Liver Function 07/29/22 Range/Units 19:42 Total Bilirubin 1.0 (0.0-1.0) mg/dL AST 11 (5-31) U/L ALT 9 (0-31) U/L Alkaline Phosphatase 120 H (39-117) U/L Albumin 3.2 L (3.5-5.0) g/dL Urine 07/29/22 Range/Units 22:44 Urine Color Dark Yellow Urine Appearance Cloudy Urine pH 5.5 (5.0-9.0) Ur Specific [place] >= 1.030 H (1.005-1.025) Urine Protein Trace (Neg-Trace) mg/dL Urine Glucose (UA) Negative (Negative) mg/dL Assessment and Plan Patient Active problem list reviewed?: Yes (1) Acute thrombosis of inferior vena cava Status: Acute Assessment and plan: 1. This is a 76-year-old woman admitted for hypoxemia secondary to multifocal pneumonia. CT chest/abdomen and pelvis performed 07/30/2022 revealed dense consolidation in the posterior left lower lobe with multifocal regions of ground-glass opacity bilaterally suspicious for multifocal pneumonia. Hypodensity in infrarenal IVC consistent with thrombus. Patient was discharged from [facility] in May after she underwent left femoral, popliteal and posterior tibial cut Down's for embolectomy and fasciectomy performed 06/14/2022. This was complicated by reocclusion of distal popliteal and proximal tibial arteries, underwent redo tibial artery and popliteal cut down thrombectomies with patch angioplasties on 06/18/2022. This was further complicated by persistent tissue loss necessitating above knee amputation. She was discharged on aspirin and Plavix. I do not have any imaging studies from [facility]. It is unclear as to the duration of IVC thrombus. This could have occurred as a result of recent surgery at [facility]. There does not seem to be pulmonary embolism. Oxygenation appears to be improving with treatment of her pneumonia. She probably can be switched back to Eliquis at time of discharge. I thank you for this consultation. - Time Spent With Patient Time Spent with Patient (in minutes): 15
[2022-07-30 13:52] VITALS: BP 95/46; PULSE 81; RESP 16; O2SAT 94
--- NOTE | 2022-07-30 14:20 | MHC.EDTECH ---
Pt was incontinent of bladder and bm. Bm was loose, brown colored and medium size.
--- NOTE | 2022-07-30 14:31 | PHA.MEDREC ---
Pharmacy Consult ? Medication Reconciliation Pharmacy has reviewed the medication reconciliation.
--- NOTE | 2022-07-30 14:50 | MHC.CM.PN ---
CM ATTEMPTED TO MEET WITH PT MULTIPLE TIMES, PT SLEEPING CM ATTEMPTED TO CONTACT PTS DAUGHTER/HCP INA [phone], NO ANSWER CM WILL REATTEMPT T/C
--- NOTE | 2022-07-30 15:13 | PC.NURSE ---
assumed care of patient. patient is sleeping. resp are equal and unlabored. nasal cannula in place. call kaur within reach
[2022-07-30] MEDS: Apixaban 5 MG TABLET PO (18:11)
[2022-07-30 19:34] VITALS: BP 101/55; PULSE 81; RESP 15; TEMP 36.9; O2SAT 4
--- NOTE | 2022-07-30 22:00 | PC.NURSE ---
Pt arrived to the unit via stretcher. In no apparent respiratory distress, oxygen saturation 97% on 4 L; denies SOB. Pt is noted to have left AKA, dressing is stained,; dressing changed with non adhesive pads and kerlix, gino intact, . skin tear to side of the L stamp, about 1 cm of stage 2 pressure injury to right buttock, barrier cream applied; awaiting interpretation service to get consent to take a picture of the pi.
[2022-07-30] MEDS: Pravastatin Sodium 40 MG TABLET PO (22:12)
[2022-07-30 23:41] VITALS: BP 133/77; PULSE 77; RESP 16; TEMP 36.3; O2SAT 96
[2022-07-31] MEDS: cefTRIAXone sodium 1 GM in 0.9 % Sodium Chloride 50 ML IV (01:05)
[2022-07-31] MEDS: Azithromycin 500 MG in 0.9 % Sodium Chloride 250 ML 125 MG IV (01:42)
[2022-07-31 03:20] VITALS: BP 112/58; PULSE 70; RESP 16; TEMP 36.1; O2SAT 99
[2022-07-31] MEDS: Omeprazole 20 MG CAPSULE.DR PO (05:26)
[2022-07-31] MEDS: Apixaban 5 MG TABLET PO ×2 (05:26→17:14)
--- NOTE | 2022-07-31 06:00 | PC.NURSE ---
Pt unable to sign written consent form, gave verbal consent to this Rn to take photograph of a pressure injury to the buttock.
[2022-07-31] MEDS: 0.9 % Sodium Chloride Flush 3 ML SYRINGE IVFLUSH ×2 (06:06→21:30)
[2022-07-31 07:38] VITALS: BP 124/68; PULSE 82; RESP 18; TEMP 36.3; O2SAT 97
[2022-07-31] MEDS: Sertraline HCL 25 MG TABLET PO (11:11)
[2022-07-31] MEDS: Clopidogrel Bisulfate 75 MG TABLET PO (11:11)
[2022-07-31] MEDS: amLODIPine Besylate 5 MG TABLET PO (11:11)
[2022-07-31] MEDS: Gabapentin 400 MG CAPSULE PO ×3 (11:11→21:30)
[2022-07-31] MEDS: Furosemide 20 MG TABLET 10 MG PO (11:11)
[2022-07-31] MEDS: Cholecalciferol (Vitamin D3) 25 MCG TABLET PO (11:12)
[2022-07-31] MEDS: Valsartan 320 MG TABLET PO (11:28)
[2022-07-31 11:55] VITALS: BMI 32.9
--- NOTE | 2022-07-31 14:49 | MHC.CM.PN ---
Met with pt to discuss d/c planning needs: pt from [facility] in [place]. MOLST and HCP in chart: Call placed to HCP/dtr Silvia: message left. Pt somewhat confused: answering I feel good, my body is good when asked questions in [place] and [place]. Re-referred to [facility] - ? if pt is LTC and a bedhold. CM to await call back from [place] and [facility].
[2022-07-31 15:11] VITALS: BP 122/60; PULSE 76; RESP 18; TEMP 36.2; O2SAT 95
[2022-07-31 16:00] VITALS: BP 112/58; PULSE 70; RESP 18; TEMP 36.1; O2SAT 99
[2022-07-31 16:25] LABS: Glucose, Whole Blood 98 mg/dL (60-115)
--- NOTE | 2022-07-31 16:50 | HO.PM.IMPN ---
Subjective Subjective Date of Service: 08/01/22 Interval History: Sepsis due to left-sided pneumonia,Acute hypoxemic respiratory failure Review of Systems sob seems improvin denies any chest pain shortness of breath Physical Exam Vital Signs: Vital Signs: Last Vital Signs Temp 97.0 F 07/31/22 16:00 Pulse 70 07/31/22 16:00 Resp 18 07/31/22 16:00 BP 112/58 L 07/31/22 16:00 Pulse Ox 99 07/31/22 16:00 O2 Del Method 07/31/22 16:00 O2 Flow Rate 2.0 07/31/22 16:00 Oxygen Flow Rate 4 07/29/22 18:14 BMI result Body Mass Index 32.9 Elderly female lying in bed on 2 L supplemental oxygen Neck supple, no JVD Regular rate and rhythm, S1-S2 heard. air entry seems fair ,no much wheezin Abdomen soft nontender, no guarding, no rigidity Patient is awake, alert and oriented to self, disoriented to place, time and person ; no focal motor deficit Psych: Normal mood No pedal edema Objective Data Active Medications Acetaminophen (Acetaminophen 325 Mg Tablet) 650 mg PO Q6H PRN PRN Reason: Pain, Mild (Pain Scale 1-3) Amlodipine Besylate (Amlodipine Besylate 5 Mg Tablet) 5 mg PO DAILY [facility]; Protocol Last Admin: 07/31/22 11:11 Dose: 5 mg Documented By: DAIJA Apixaban (Apixaban 5 Mg Tablet) 5 mg PO BID@0600,1800 [facility] Last Admin: 07/31/22 05:26 Dose: 5 mg Documented By: JAMES Clopidogrel Bisulfate (Clopidogrel Bisulfate 75 Mg Tablet) 75 mg PO DAILY [facility] Last Admin: 07/31/22 11:11 Dose: 75 mg Documented By: DAIJA Furosemide (Furosemide 20 Mg Tablet) 10 mg PO DAILY [facility]; Protocol Last Admin: 07/31/22 11:11 Dose: 10 mg Documented By: DAIJA Gabapentin (Gabapentin 400 Mg Capsule) 400 mg PO TID [facility] Last Admin: 07/31/22 14:46 Dose: 400 mg Documented By: ANNA-DARIAFA Ceftriaxone Sodium 1 gm/ (Sodium Chloride) 50 mls @ 100 mls/hr IV Q24H [facility] Last Infusion: 07/31/22 01:41 Dose: 0 mls/hr Documented By: JAMES Azithromycin 500 mg/ Sodium (Chloride) 250 mls @ 125 mls/hr IV Q24H [facility] Last Infusion: 07/31/22 04:17 Dose: 0 mls/hr Documented By: JAMES Melatonin (Melatonin 3 Mg Tablet) 6 mg PO BEDTIME PRN PRN Reason: Insomnia Metformin HCl (Metformin Hcl Er 500 Mg Tab.Er.24h) 1,000 mg PO DAILY@1700 [facility] Omeprazole (Omeprazole 20 Mg Capsule.Dr) 20 mg PO DAILY@0630 [facility] Last Admin: 07/31/22 05:26 Dose: 20 mg Documented By: JAMES Ondansetron HCl (Ondansetron Hcl 4 Mg/2 Ml Vial) 4 mg IVPUSH Q8H PRN PRN Reason: Nausea and Vomiting Last Admin: 07/30/22 08:34 Dose: 4 mg Documented By: DENNIS Oxycodone HCl (Oxycodone Hcl Immed Release 5 Mg Tablet) 5 mg PO Q6H PRN PRN Reason: Pain, Severe (Pain Scale 7-10) Pravastatin Sodium (Pravastatin Sodium 40 Mg Tablet) 40 mg PO BEDTIME [facility] Last Admin: 07/30/22 22:12 Dose: 40 mg Documented By: JAMES Sertraline HCl (Sertraline Hcl 25 Mg Tablet) 25 mg PO DAILY [facility] Last Admin: 07/31/22 11:11 Dose: 25 mg Documented By: DAIJA Sodium Chloride (0.9 % Sodium Chloride Flush 3 Ml Syringe) 3 ml IVFLUSH QSHIFT [facility] Last Admin: 07/31/22 13:57 Dose: Not Given Documented By: NELLY Non-Admin Reason: See Note Valsartan (Valsartan 320 Mg Tablet) 320 mg PO DAILY [facility]; Protocol Last Admin: 07/31/22 11:28 Dose: 320 mg Documented By: DAIJA Vitamin D (Cholecalciferol (Vitamin D3) 25 Mcg Tablet) 25 mcg PO DAILY [facility] Last Admin: 07/31/22 11:12 Dose: 25 mcg Documented By: DAIJA Labs 07/30/22 02:58 07/30/22 02:58 Labs: Laboratory Results - last 24 hr 07/31/22 16:21 POC Glucose 98 Microbiology Microbiology Results: Microbiology 07/29/22 21:22 Blood Culture - Preliminary Blood - Venous No growth after 24 hours. 07/29/22 21:22 Blood Culture - Preliminary Blood - Venous No growth after 24 hours. 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 ? Sepsis due to left-sided pneumonia Acute hypoxemic respiratory failure in the setting of above. Initiating empiric IV antibiotics Rocephin and azithromycin.? Lactic acid normal and blood culture pending -maintain oxygen saturation greater than 90% and wean as tolerated.? 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 As per home medication list, patient is on Eliquis. Essential hypertension:? Hold antihypertensive in the setting of sepsis.? Resume as appropriate Mixed hyperlipidemia: On statin Coronary artery disease:? On statin and Plavix overweight advised to lose weight. DVT prophylaxis:? eliquis. Full code Cardiac diet inpatient need : Sepsis due to left-sided pneumonia/Acute hypoxemic respiratory failure - IV antibiotics and supplemental oxygen taper oxygen. Time Spent With Patient Time: Total time managing care of this patient today ____ minutes. Quality Stroke Does the patient have a stroke diagnosis?: No VTE Prior VTE?: No VTE Risk Level:: Medical - moderate - high VTE Device Contraindication: Treatment Not Indicated VTE Drug Contraindication: N/A - Med Ordered
[2022-07-31 19:33] VITALS: BP 136/66; PULSE 75; RESP 18; TEMP 36.1; O2SAT 98
[2022-07-31 19:51] LABS: Glucose, Whole Blood 112 mg/dL (60-115)
[2022-07-31] MEDS: Pravastatin Sodium 40 MG TABLET PO (21:30)
[2022-07-31 23:35] VITALS: BP 116/58; PULSE 70; RESP 18; TEMP 36.1; O2SAT 98
[2022-08-01] MEDS: cefTRIAXone sodium 1 GM in 0.9 % Sodium Chloride 50 ML IV (01:02)
[2022-08-01] MEDS: Azithromycin 500 MG in 0.9 % Sodium Chloride 250 ML 125 MG IV (01:08)
[2022-08-01 03:35] VITALS: BP 128/71; PULSE 78; RESP 18; TEMP 36.2; O2SAT 98
[2022-08-01] MEDS: Apixaban 5 MG TABLET PO ×2 (06:03→18:10)
[2022-08-01] MEDS: Omeprazole 20 MG CAPSULE.DR PO (06:03)
[2022-08-01 07:23] VITALS: BP 137/68; PULSE 77; RESP 18; TEMP 36.7; O2SAT 93
[2022-08-01 07:25] LABS: Glucose, Whole Blood 99 mg/dL (60-115)
[2022-08-01] MEDS: Valsartan 320 MG TABLET PO (07:56)
[2022-08-01] MEDS: Furosemide 20 MG TABLET 10 MG PO (07:56)
[2022-08-01] MEDS: Clopidogrel Bisulfate 75 MG TABLET PO (07:57)
[2022-08-01] MEDS: amLODIPine Besylate 5 MG TABLET PO (07:57)
[2022-08-01] MEDS: Gabapentin 400 MG CAPSULE PO ×3 (07:57→19:58)
[2022-08-01] MEDS: Docusate Sodium 100 MG CAPSULE PO ×2 (07:57→19:58)
[2022-08-01] MEDS: Loperamide HCl 2 MG CAPSULE 4 MG PO ×3 (07:57→19:58)
[2022-08-01] MEDS: Cholecalciferol (Vitamin D3) 25 MCG TABLET PO (07:57)
[2022-08-01] MEDS: Sertraline HCL 25 MG TABLET PO (07:57)
[2022-08-01] MEDS: 0.9 % Sodium Chloride Flush 3 ML SYRINGE IVFLUSH ×3 (07:59→19:59)
--- NOTE | 2022-08-01 11:21 | MHC.CLN ---
F/U PATIENT WITH STAGE II WOUND TO COCCYX. LEFT AKA 06/14. DIET=DM 1800 KCALS, 2 G SODIUM. SUPPLEMENT ENSURE BID PROVIDES ADDITIONAL 700 KCALS, 40 G PROTEIN TO PROMOTE WOUND HEALING. INTAKE 25-50%. FOLLOW FOR INTAKE AND WOUND HEALING.
[2022-08-01 11:30] LABS: Glucose, Whole Blood 178 mg/dL (60-115)
--- NOTE | 2022-08-01 14:31 | HO.PM.IMPN ---
Subjective Subjective Date of Service: 08/01/22 Interval History: Sepsis due to left-sided pneumonia,Acute hypoxemic respiratory failure Review of Systems sob seems improvin denies any chest pain shortness of breath Physical Exam Vital Signs: Vital Signs: Last Vital Signs Temp 98.0 F 08/01/22 07:23 Pulse 77 08/01/22 07:23 Resp 18 08/01/22 07:23 BP 137/68 08/01/22 07:23 Pulse Ox 93 08/01/22 07:23 O2 Del Method 08/01/22 07:23 O2 Flow Rate 2 08/01/22 07:23 Oxygen Flow Rate 4 07/29/22 18:14 BMI result Body Mass Index 32.9 ?Elderly female lying in bed on 2 L supplemental oxygen Neck supple, no JVD Regular rate and rhythm, S1-S2 heard. air entry seems fair? ,no much wheezin Abdomen soft nontender, no guarding, no rigidity Patient is awake, alert and oriented to self, disoriented to place, time and person ; no focal motor deficit Psych: Normal mood No pedal edema Objective Data Active Medications Acetaminophen (Acetaminophen 325 Mg Tablet) 650 mg PO Q6H PRN PRN Reason: Pain, Mild (Pain Scale 1-3) Amlodipine Besylate (Amlodipine Besylate 5 Mg Tablet) 5 mg PO DAILY [facility]; Protocol Last Admin: 08/01/22 07:57 Dose: 5 mg Documented By: EZEQUIEL Apixaban (Apixaban 5 Mg Tablet) 5 mg PO BID@0600,1800 [facility] Last Admin: 08/01/22 06:03 Dose: 5 mg Documented By: JAMES Clopidogrel Bisulfate (Clopidogrel Bisulfate 75 Mg Tablet) 75 mg PO DAILY [facility] Last Admin: 08/01/22 07:57 Dose: 75 mg Documented By: EZEQUIEL Dextrose (Dextrose 50 % 25 Gm/50 Ml Vial) 25 gm IVPUSH Q15M PRN; Protocol PRN Reason: per Hypoglycemia Standing Ord. Docusate Sodium (Docusate Sodium 100 Mg Capsule) 100 mg PO BEDTIME [facility] Last Admin: 08/01/22 07:57 Dose: 100 mg Documented By: EZEQUIEL Furosemide (Furosemide 20 Mg Tablet) 10 mg PO DAILY [facility]; Protocol Last Admin: 08/01/22 07:56 Dose: 10 mg Documented By: EZEQUIEL Gabapentin (Gabapentin 400 Mg Capsule) 400 mg PO TID [facility] Last Admin: 08/01/22 07:57 Dose: 400 mg Documented By: EZEQUIEL Glucose (Glucose Gel 15 Gm Gel..Gram.) 15 gm PO Q15M PRN; Protocol PRN Reason: per Hypoglycemia Standing Ord. Ceftriaxone Sodium 1 gm/ (Sodium Chloride) 50 mls @ 100 mls/hr IV Q24H [facility] Last Infusion: 08/01/22 01:34 Dose: 0 mls/hr Documented By: JAMES Azithromycin 500 mg/ Sodium (Chloride) 250 mls @ 125 mls/hr IV Q24H [facility] Last Infusion: 08/01/22 03:16 Dose: 0 mls/hr Documented By: JAMES Insulin Human Lispro (Insulin Lispro 100 Unit/Ml 3 Ml Vial) 0 unit SUBCUT QIDACHS [facility]; Protocol Last Admin: 08/01/22 11:31 Dose: Not Given Documented By: EZEQUIEL Non-Admin Reason: No Insulin Coverage Loperamide HCl (Loperamide Hcl 2 Mg Capsule) 4 mg PO Q6H [facility] Last Admin: 08/01/22 07:57 Dose: 4 mg Documented By: EZEQUIEL Melatonin (Melatonin 3 Mg Tablet) 6 mg PO BEDTIME PRN PRN Reason: Insomnia Melatonin (Melatonin 3 Mg Tablet) 3 mg PO BEDTIME PRN PRN Reason: Sleep Metformin HCl (Metformin Hcl Er 500 Mg Tab.Er.24h) 1,000 mg PO DAILY@1700 [facility] Omeprazole (Omeprazole 20 Mg Capsule.Dr) 20 mg PO DAILY@0630 [facility] Last Admin: 08/01/22 06:03 Dose: 20 mg Documented By: JAMES Ondansetron HCl (Ondansetron Hcl 4 Mg/2 Ml Vial) 4 mg IVPUSH Q8H PRN PRN Reason: Nausea and Vomiting Last Admin: 07/30/22 08:34 Dose: 4 mg Documented By: DENNIS Oxycodone HCl (Oxycodone Hcl Immed Release 5 Mg Tablet) 5 mg PO Q6H PRN PRN Reason: Pain, Severe (Pain Scale 7-10) Pravastatin Sodium (Pravastatin Sodium 40 Mg Tablet) 40 mg PO BEDTIME [facility] Last Admin: 07/31/22 21:30 Dose: 40 mg Documented By: JAMES Sertraline HCl (Sertraline Hcl 25 Mg Tablet) 25 mg PO DAILY [facility] Last Admin: 08/01/22 07:57 Dose: 25 mg Documented By: EZEQUIEL Sodium Chloride (0.9 % Sodium Chloride Flush 3 Ml Syringe) 3 ml IVFLUSH QSHIFT [facility] Last Admin: 08/01/22 07:59 Dose: 3 ml Documented By: EZEQUIEL Valsartan (Valsartan 320 Mg Tablet) 320 mg PO DAILY [facility]; Protocol Last Admin: 08/01/22 07:56 Dose: 320 mg Documented By: EZEQUIEL Vitamin D (Cholecalciferol (Vitamin D3) 25 Mcg Tablet) 25 mcg PO DAILY [facility] Last Admin: 08/01/22 07:57 Dose: 25 mcg Documented By: EZEQUIEL Labs 07/30/22 02:58 07/30/22 02:58 Labs: Laboratory Results - last 24 hr 07/31/22 07/31/22 08/01/22 16:21 19:48 07:14 POC Glucose 98 112 99 08/01/22 11:26 POC Glucose 178 H Microbiology Microbiology Results: Microbiology 07/29/22 21:22 Blood Culture - Preliminary Blood - Venous No growth after 48 hours. 07/29/22 21:22 Blood Culture - Preliminary Blood - Venous No growth after 48 hours. 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 ? Sepsis due to left-sided pneumonia Acute hypoxemic respiratory failure in the setting of above. Initiating empiric IV antibiotics Rocephin and azithromycin.? Lactic acid normal and blood culture pending -maintain oxygen saturation greater than 90% and wean as tolerated.? 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 As per home medication list, patient is on Eliquis. Essential hypertension:? Hold antihypertensive in the setting of sepsis.? Resume as appropriate Mixed hyperlipidemia: On statin Coronary artery disease:? On statin and Plavix overweight advised to lose weight. DVT prophylaxis:? eliquis. inpatient need : Sepsis due to left-sided pneumonia/Acute hypoxemic respiratory failure - IV antibiotics and supplemental oxygen taper oxygen. Time Spent With Patient Time: Total time managing care of this patient today ____ minutes. Quality Stroke Does the patient have a stroke diagnosis?: No VTE Prior VTE?: No VTE Risk Level:: Medical - moderate - high VTE Device Contraindication: Treatment Not Indicated VTE Drug Contraindication: N/A - Med Ordered
--- NOTE | 2022-08-01 14:33 | HO.PM.IMPN ---
Subjective Subjective Date of Service: 08/01/22 Interval History: Sepsis due to left-sided pneumonia,Acute hypoxemic respiratory failure Review of Systems sob seems improvin,denies any chest pain shortness of breath no fevers Physical Exam Vital Signs: Vital Signs: Last Vital Signs Temp 98.0 F 08/01/22 07:23 Pulse 77 08/01/22 07:23 Resp 18 08/01/22 07:23 BP 137/68 08/01/22 07:23 Pulse Ox 93 08/01/22 07:23 O2 Del Method 08/01/22 07:23 O2 Flow Rate 2 08/01/22 07:23 Oxygen Flow Rate 4 07/29/22 18:14 BMI result Body Mass Index 32.9 Elderly female lying in bed on 2 L supplemental oxygen Neck supple, no JVD Regular rate and rhythm, S1-S2 heard. air entry seems fair? ,no much wheezin Abdomen soft nontender, no guarding, no rigidity Patient is awake, alert and oriented to self, disoriented to place, time and person ; no focal motor deficit Psych: Normal mood No pedal edema Objective Data Active Medications Acetaminophen (Acetaminophen 325 Mg Tablet) 650 mg PO Q6H PRN PRN Reason: Pain, Mild (Pain Scale 1-3) Amlodipine Besylate (Amlodipine Besylate 5 Mg Tablet) 5 mg PO DAILY [facility]; Protocol Last Admin: 08/01/22 07:57 Dose: 5 mg Documented By: EZEQUIEL Apixaban (Apixaban 5 Mg Tablet) 5 mg PO BID@0600,1800 [facility] Last Admin: 08/01/22 06:03 Dose: 5 mg Documented By: JAMES Clopidogrel Bisulfate (Clopidogrel Bisulfate 75 Mg Tablet) 75 mg PO DAILY [facility] Last Admin: 08/01/22 07:57 Dose: 75 mg Documented By: EZEQUIEL Dextrose (Dextrose 50 % 25 Gm/50 Ml Vial) 25 gm IVPUSH Q15M PRN; Protocol PRN Reason: per Hypoglycemia Standing Ord. Docusate Sodium (Docusate Sodium 100 Mg Capsule) 100 mg PO BEDTIME [facility] Last Admin: 08/01/22 07:57 Dose: 100 mg Documented By: EZEQUIEL Furosemide (Furosemide 20 Mg Tablet) 10 mg PO DAILY [facility]; Protocol Last Admin: 08/01/22 07:56 Dose: 10 mg Documented By: EZEQUIEL Gabapentin (Gabapentin 400 Mg Capsule) 400 mg PO TID [facility] Last Admin: 08/01/22 07:57 Dose: 400 mg Documented By: EZEQUIEL Glucose (Glucose Gel 15 Gm Gel..Gram.) 15 gm PO Q15M PRN; Protocol PRN Reason: per Hypoglycemia Standing Ord. Ceftriaxone Sodium 1 gm/ (Sodium Chloride) 50 mls @ 100 mls/hr IV Q24H [facility] Last Infusion: 08/01/22 01:34 Dose: 0 mls/hr Documented By: JAMES Azithromycin 500 mg/ Sodium (Chloride) 250 mls @ 125 mls/hr IV Q24H [facility] Last Infusion: 08/01/22 03:16 Dose: 0 mls/hr Documented By: JAMES Insulin Human Lispro (Insulin Lispro 100 Unit/Ml 3 Ml Vial) 0 unit SUBCUT QIDACHS [facility]; Protocol Last Admin: 08/01/22 11:31 Dose: Not Given Documented By: EZEQUIEL Non-Admin Reason: No Insulin Coverage Loperamide HCl (Loperamide Hcl 2 Mg Capsule) 4 mg PO Q6H [facility] Last Admin: 08/01/22 07:57 Dose: 4 mg Documented By: EZEQUIEL Melatonin (Melatonin 3 Mg Tablet) 6 mg PO BEDTIME PRN PRN Reason: Insomnia Melatonin (Melatonin 3 Mg Tablet) 3 mg PO BEDTIME PRN PRN Reason: Sleep Metformin HCl (Metformin Hcl Er 500 Mg Tab.Er.24h) 1,000 mg PO DAILY@1700 [facility] Omeprazole (Omeprazole 20 Mg Capsule.) 20 mg PO DAILY@0630 [facility] Last Admin: 08/01/22 06:03 Dose: 20 mg Documented By: JAMES Ondansetron HCl (Ondansetron Hcl 4 Mg/2 Ml Vial) 4 mg IVPUSH Q8H PRN PRN Reason: Nausea and Vomiting Last Admin: 07/30/22 08:34 Dose: 4 mg Documented By: DENNIS Oxycodone HCl (Oxycodone Hcl Immed Release 5 Mg Tablet) 5 mg PO Q6H PRN PRN Reason: Pain, Severe (Pain Scale 7-10) Pravastatin Sodium (Pravastatin Sodium 40 Mg Tablet) 40 mg PO BEDTIME [facility] Last Admin: 07/31/22 21:30 Dose: 40 mg Documented By: JAMES Sertraline HCl (Sertraline Hcl 25 Mg Tablet) 25 mg PO DAILY [facility] Last Admin: 08/01/22 07:57 Dose: 25 mg Documented By: EZEQUIEL Sodium Chloride (0.9 % Sodium Chloride Flush 3 Ml Syringe) 3 ml IVFLUSH QSHIFT [facility] Last Admin: 08/01/22 07:59 Dose: 3 ml Documented By: EZEQUIEL Valsartan (Valsartan 320 Mg Tablet) 320 mg PO DAILY [facility]; Protocol Last Admin: 08/01/22 07:56 Dose: 320 mg Documented By: EZEQUIEL Vitamin D (Cholecalciferol (Vitamin D3) 25 Mcg Tablet) 25 mcg PO DAILY [facility] Last Admin: 08/01/22 07:57 Dose: 25 mcg Documented By: EZEQUIEL Labs 07/30/22 02:58 07/30/22 02:58 Labs: Laboratory Results - last 24 hr 07/31/22 07/31/22 08/01/22 16:21 19:48 07:14 POC Glucose 98 112 99 08/01/22 11:26 POC Glucose 178 H Microbiology Microbiology Results: Microbiology 07/29/22 21:22 Blood Culture - Preliminary Blood - Venous No growth after 48 hours. 07/29/22 21:22 Blood Culture - Preliminary Blood - Venous No growth after 48 hours. 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 ? Sepsis due to left-sided pneumonia Acute hypoxemic respiratory failure in the setting of above. Initiating empiric IV antibiotics Rocephin and azithromycin.? Lactic acid normal and blood culture pending -maintain oxygen saturation greater than 90% and wean as tolerated.? 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 As per home medication list, patient is on Eliquis. Essential hypertension:? Hold antihypertensive in the setting of sepsis.? Resume as appropriate Mixed hyperlipidemia: On statin Coronary artery disease:? On statin and Plavix overweight advised to lose weight. DVT prophylaxis:? eliquis. inpatient need : Sepsis due to left-sided pneumonia/Acute hypoxemic respiratory failure - IV antibiotics and supplemental oxygen taper oxygen. Time Spent With Patient Time: Total time managing care of this patient today ____ minutes. Quality Stroke Does the patient have a stroke diagnosis?: No VTE Prior VTE?: No VTE Risk Level:: Medical - moderate - high VTE Device Contraindication: Treatment Not Indicated VTE Drug Contraindication: N/A - Med Ordered
[2022-08-01 15:31] VITALS: BP 107/56; PULSE 82; RESP 18; TEMP 36.9; O2SAT 97
[2022-08-01 17:46] LABS: Glucose, Whole Blood 99 mg/dL (60-115)
[2022-08-01] MEDS: metFORMIN HCl ER 500 MG TAB.ER.24H 1000 MG PO (18:06)
[2022-08-01 19:20] VITALS: BP 116/61; PULSE 78; RESP 18; TEMP 36.7; O2SAT 97
[2022-08-01 19:31] LABS: Glucose, Whole Blood 151 mg/dL (60-115)
[2022-08-01] MEDS: Pravastatin Sodium 40 MG TABLET PO (19:58)
[2022-08-02] VITALS: BP 107/56; PULSE 74; RESP 17; TEMP 36.1; O2SAT 90
[2022-08-02] MEDS: cefTRIAXone sodium 1 GM in 0.9 % Sodium Chloride 50 ML IV (00:41)
[2022-08-02] MEDS: Loperamide HCl 2 MG CAPSULE 4 MG PO ×3 (00:42→14:06)
[2022-08-02] MEDS: Azithromycin 500 MG in 0.9 % Sodium Chloride 250 ML 125 MG IV (01:17)
[2022-08-02 03:29] VITALS: BP 119/62; PULSE 76; RESP 17; TEMP 36; O2SAT 94
[2022-08-02] MEDS: Apixaban 5 MG TABLET PO (05:36)
[2022-08-02] MEDS: Omeprazole 20 MG CAPSULE.DR PO (05:36)
[2022-08-02 07:26] VITALS: BP 115/66; PULSE 76; RESP 18; TEMP 36.6; O2SAT 93
[2022-08-02 07:34] LABS: Glucose, Whole Blood 115 mg/dL (60-115)
[2022-08-02 08:00] VITALS: BP 115/66; PULSE 81; RESP 18; TEMP 36.6; O2SAT 93
--- NOTE | 2022-08-02 08:47 | MHC.CM.PN ---
Addendum entered by Mera Loomis 08/02/22 15:47: PT READY TO RETURN TO SNF PT EVAL INDICATES STR WITH POSSIBLE TRANSITION TO LTC CM SPOKE TO PTS DAUGHTER, INA, WHO REPORTS SHE PLANS TO TAKE HER MOTHER HOME IN THE FUTURE WHEN SHE IS ABLE TO FIND A NEW EYE SPECIALIST PT WILL DC TO [facility] AT [address] Original Note: PER [facility] COMMUNICATION, PT IS STR WITH THEM AND MAY POTENTIALLY TRANSITION TO LTC AWAITING RESPONSE TO DETERMINE IF PT WILL NEED A PT EVAL TO RETURN TO SKILLED CARE
[2022-08-02] MEDS: Valsartan 320 MG TABLET PO (08:53)
[2022-08-02] MEDS: Gabapentin 400 MG CAPSULE PO ×2 (08:53→14:06)
[2022-08-02] MEDS: 0.9 % Sodium Chloride Flush 3 ML SYRINGE IVFLUSH (08:53)
[2022-08-02] MEDS: Sertraline HCL 25 MG TABLET PO (08:53)
[2022-08-02] MEDS: Cholecalciferol (Vitamin D3) 25 MCG TABLET PO (08:53)
[2022-08-02] MEDS: amLODIPine Besylate 5 MG TABLET PO (08:53)
[2022-08-02] MEDS: Furosemide 20 MG TABLET 10 MG PO (08:54)
[2022-08-02] MEDS: Clopidogrel Bisulfate 75 MG TABLET PO (08:54)
[2022-08-02 11:49] LABS: Glucose, Whole Blood 163 mg/dL (60-115)
[2022-08-02 12:25] LABS: Hematocrit 36.2 % (37.0-47.0); Mean Corpuscular HGB Conc 33.1 g/dl (31.0-35.0); Mean Corpuscular Hemoglobin 29.7 pg (27.0-33.0); Mean Corpuscular Volume 89.6 fL (80.0-98.0); Platelet Count 429 X10*3/uL (160-400); Red Blood Count 4.04 X10*6/uL (4.20-5.50); Red Cell Distribution Width 14.3 % (11.0-16.0); White Blood Count 8.2 X10*3/uL (4.8-10.8)
[2022-08-02] MEDS: oxyCODONE HCl Immed Release 5 MG TABLET PO (14:06)
--- NOTE | 2022-08-02 14:23 | P.DS_ITS ---
DS: Providers Provider Date of Service: 08/02/22 Date of admission: 07/30/22 01:06 Primary care physician: Gauri Cardenas MD Consults: 07/30/22 01:09 Consult to Hematology / Oncology Routine Consulting Provider: Lindsay Squires Reason for consultation: IVC thrombus. 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 Patient is a poor historian and history was obtained by chart review and ER provider.? Patient with productive cough that started about 1 day prior to presentation.? Associated with nausea and fever.? Patient was found to be hypoxemic and saturating 80% on room air.? Unable to obtain review of systems. Hospital course: 76-year-old female with acute hypoxemic respiratory failure, sepsis, pneumonia - started on iv antibiotics, supportive care oxygen-seems to be improving significantly-going to the rehab with p.o. antibiotics, Taper oxygen.Sepsis seems to be resolved,blood cultures negative @48hrs. 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 patient is asymptomatic , no abdominal pain or nausea or vomiting,passing bowels . medial coccyx ulcer : seems like present before admission frequent turning, oob ,nursing care. Patient is to follow-up with pcp outpatiently, her daughter is aware to make appointment. plan: continue eliquis , consider outpatient hematology follow up . taper oxygen complete course of antibiotics, repeat chest imaging in 3-4 weeks to see resolution of pneumonia. Time Spent with Patient Time attestation: Total time managing care of this patient today ____ minutes. Discharge coordination time: Greater than 30 minutes Quality: Safe Use of Opioids Does Pt have an Active Cancer Diagnosis on the Problem List?: No Quality: Stroke Does the patient have a stroke diagnosis?: No Physical Exam Vital Signs: Vital Signs: Last Vital Signs Temp 97.8 F 08/02/22 08:00 Pulse 81 08/02/22 08:00 Resp 18 08/02/22 08:00 BP 115/66 08/02/22 08:00 Pulse Ox 93 08/02/22 08:00 O2 Del Method 08/02/22 08:00 O2 Flow Rate 1 08/02/22 08:00 Oxygen Flow Rate 4 07/29/22 18:14 BMI result Body Mass Index 32.9 Elderly female lying in bed on 1L supplemental oxygen Neck supple, no JVD Regular rate and rhythm, S1-S2 heard. air entry seems fair? ,no much wheezin Abdomen soft nontender, no guarding, no rigidity Patient is awake, alert and oriented to self, disoriented to place, time and person ; no focal motor deficit Psych: Normal mood skin:No pedal edema, mid coccyx ulcer possible stage 2 ,no erythema or discharge DS: Data Data Completed and Pending Labs on day of discharge: Laboratory Results - last 24 hr 08/01/22 08/01/22 08/02/22 17:14 19:22 07:30 WBC RBC Hgb Hct MCV MCH MCHC RDW Plt Count MPV Absolute Nucleated RBC Nucleated RBC % (auto) POC Glucose 99 151 H 115 08/02/22 08/02/22 11:45 12:13 WBC 8.2 RBC 4.04 L Hgb 12.0 Hct 36.2 L MCV 89.6 MCH 29.7 MCHC 33.1 RDW 14.3 Plt Count 429 H MPV 9.0 L Absolute Nucleated RBC 0.000 Nucleated RBC % (auto) 0.0 POC Glucose 163 H Preliminary micro results at discharge 07/29/22 21:22 Blood Culture - Preliminary Blood - Venous No growth after 48 hours. 07/29/22 21:22 Blood Culture - Preliminary Blood - Venous No growth after 48 hours. Imaging Chest x-ray: Radiologist's impression: ITS Impressions Chest X-Ray 07/29/22 19:07 IMPRESSION: No active cardiopulmonary disease Abdomen/Pelvis CT 07/29/22 20:34 IMPRESSION: 1. Gaseous distention of the nondependent colonic bowel loops without transition point or point of obstruction. This is new since CAT scan 02/13/2022. No bowel wall thickening or edema. 2. Bilateral nonobstructive renal stones. No hydroureter or ureteral calculi. Fleischner guidelines were followed. Abdomen/Pelvis CT 07/29/22 23:59 IMPRESSION: 1. Area of dense consolidation in the posterior left lower lobe along with scattered multifocal regions of groundglass opacity bilaterally, suspicious for multifocal pneumonia. 2. Hypodensity in the infrarenal IVC most consistent with thrombus. 3. Redemonstrated predominantly gaseous distention of much of the colon, similar to prior. 4. Coronary artery calcifications. Correlation with cardiac risk factors is recommended. This critical result was discussed with Dr. Payne on 07/30/2022 12:39 AM, and it was ascertained that the content and urgency of the report was understood at the time of direct communication. Chest CT 07/29/22 23:59 IMPRESSION: 1. Area of dense consolidation in the posterior left lower lobe along with scattered multifocal regions of groundglass opacity bilaterally, suspicious for multifocal pneumonia. 2. Hypodensity in the infrarenal IVC most consistent with thrombus. 3. Redemonstrated predominantly gaseous distention of much of the colon, similar to prior. 4. Coronary artery calcifications. Correlation with cardiac risk factors is recommended. This critical result was discussed with Dr. Payne on 07/30/2022 12:39 AM, and it was ascertained that the content and urgency of the report was understood at the time of direct communication. Discharge Plan Discharge Anticipated Discharge Date/Time: 08/02/22 11:26 Patient Disposition: [facility] Discharge Diagnosis: Acute hypoxemic respiratory failure secondary to pneumonia, IVC thrombus Referrals: [facility] [place] [Outside] - 1 Week Gauri Cardenas MD [Primary Care Provider] - 1 Week Discharge Medications: Continued pravastatin 40 mg tablet 1 tab PO BEDTIME clopidogrel 75 mg tablet 1 tab PO DAILY amlodipine 5 mg tablet 1 tab PO DAILY acetaminophen 500 mg tablet 1 tab PO Q8H PRN (Reason: Pain) valsartan [Diovan] 320 mg tablet 1 tab PO DAILY furosemide 20 mg tablet 0.5 tab PO DAILY cholecalciferol (vitamin D3) 25 mcg (1,000 unit) tablet 1 tab PO DAILY oxycodone 5 mg Tablet 5 mg PO Q6H PRN (Reason: Pain, Severe (Pain Scale 7-10)) Qty: 1 0RF Rx Instructions: Partial Fill upon patient request. gabapentin 400 mg capsule 1 cap PO TID pantoprazole 40 mg tablet,delayed release (DR/EC) 1 tab PO DAILY sertraline 25 mg tablet 1 tab PO DAILY metformin 500 mg tablet extended release 24 hr 2 tab PO QPM Eliquis 5 mg tablet 1 tab PO BID loperamide 2 mg capsule 2 cap PO Q6H melatonin 3 mg Tablet 3 mg PO BEDTIME PRN (Reason: Sleep) Discharge Orders: Discharge Order (Routine); Ordered 08/02/22 Ordered By: Anitra Miller Diet: Advance to usual diet Activity on Discharge: As tolerated Stand Alone Forms: Patient Portal Discharge page Care Plan Goals: 76-year-old female with hypoxemia,pneumonia ,sepsis -started on antibiotics, supportive care oxygen-seems to be improving significantly-going to the rehab with p.o. antibiotics, Taper oxygen. Sepsis seems to be resolved,blood cultures negative @48hrs. 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 Patient is to follow-up with pcp outpatiently. Health Concerns: As above. Plan of Treatment: As above. Assessment: As above.
[2022-08-02 15:41] VITALS: BP 117/58; PULSE 78; RESP 18; TEMP 36.2; O2SAT 96
== END 2022-08-02 18:42 | disposition skilled nursing facility (03) | DRG 871 ==
LOC: HO.ED 07-30 00:50 → HO.EDOVER 07-30 01:10 → HO.S3 07-30 19:26
PROVIDERS: Admitting Provider Student in an Organized Health Care Education/Training Program; Emergency Provider Internal Medicine; PCP Family Medicine; Visit Provider Internal Medicine
DX: A41.9 Sepsis, unspecified organism (principal); I82.220 Acute embolism and thrombosis of inferior vena cava; J96.01 Acute respiratory failure with hypoxia; J45.909 Unspecified asthma, uncomplicated; I25.10 Atherosclerotic heart disease of native coronary artery without angina pectoris; E78.2 Mixed hyperlipidemia; E66.3 Overweight; L89.152 Pressure ulcer of sacral region, stage 2; Z20.822 Contact with and (suspected) exposure to COVID-19; Z89.612 Acquired absence of left leg above knee; Z68.32 Body mass index [BMI] 32.0-32.9, adult; Z88.0 Allergy status to penicillin; Z88.6 Allergy status to analgesic agent; Z79.01 Long term (current) use of anticoagulants; Z79.84 Long term (current) use of oral hypoglycemic drugs; Z79.02 Long term (current) use of antithrombotics/antiplatelets; Z79.899 Other long term (current) drug therapy
CPT/HCPCS: 36415; 71045; 71260; 74176; 74177; 80048; 80053; 81001; 82803; 82947; 83605; 83690; 83880; 84484; 85025; 85027; 85610; 87040; 87635; 93005; 97162; 99285; J0456; J0696; J1650; J2405; J2543; Q9967

== ENCOUNTER 2022-10-30 11:27 | Outpatient (REF) | payer OTHER, SELFPAY ==
[2022-10-30 14:33] LABS: MANUAL DIFF FLAG NO
[2022-10-30 14:45] LABS: Basophils Absolute Auto 0.1 X10*3/uL (0.0-0.2); Basophils Percent Auto 0.8 % (0-2); Eosinophils Absolute Auto 0.2 X10*3/uL (0.0-0.4); Eosinophils Percent Auto 2.8 % (0-4); Hematocrit 41.4 % (37.0-47.0); Hemoglobin 13.6 g/dl (12.0-16.0); Imm Gran Abs Auto 0.01 X10*3/uL (0.00-0.03); Imm Gran Pct Auto 0.2 % (0.0-0.4); Lymphocytes Absolute Auto 2.2 X10*3/uL (1.2-4.9); Lymphocytes Percent Auto 35.5 % (20-40); Mean Corpuscular HGB Conc 32.9 g/dl (31.0-35.0); Mean Corpuscular Volume 88.3 fL (80.0-98.0); Mean Platelet Volume 10.2 fL (9.4-12.3); Monocytes Absolute Auto 0.7 X10*3/uL (0.1-1.2); Monocytes Percent Auto 11.3 % (2-11); Neutrophils Percent Auto 49.4 % (45-73); Platelet Count 308 X10*3/uL (160-400); Red Blood Count 4.69 X10*6/uL (4.20-5.50); Red Cell Distribution Width 16.2 % (11.0-16.0); White Blood Count 6.1 X10*3/uL (4.8-10.8)
[2022-10-30 15:31] LABS: Creatinine Urine 23.69 mg/dL; Microalbumin Urine < 5.0 mg/L
[2022-10-30 15:36] LABS: Alanine Aminotransferase 32 U/L (0-31); Albumin Level 3.7 g/dL (3.5-5.0); Alkaline Phosphatase 115 U/L (39-117); Anion Gap 14 (12-20); Aspartate Amino Transferase 22 U/L (5-31); Bilirubin Direct 0.2 mg/dL (0.0-0.5); Bilirubin Total 0.5 mg/dL (0.0-1.0); Blood Urea Nitrogen 15 mg/dL (9-16); Calcium 9.8 mg/dL (8.4-10.2); Chloride 101 mmol/L (96-108); Cholesterol 127 mg/dL; Estimated Glomerular Filt Rate > 60; Glucose Random 117 mg/dL (60-115); HDL Cholesterol 40 mg/dL; LDL Cholesterol Calculated 70 mg/dl; Potassium 4.4 mmol/L (3.3-5.1); Sodium 138 mmol/L (135-145); Total Protein 6.3 g/dL (6.5-8.0); Triglycerides 87 mg/dL
[2022-10-30 15:49] LABS: Carbon Dioxide 27 mmol/L (22-29); TSH reflex Free T4 2.16 uIU/mL (0.32-4.0); Vitamin B12 281 pg/mL (200-900)
[2022-10-31 04:31] LABS: ~HepC Num1 0.21 S/CO (0.00-0.79); ~Hepatitis C Antibody Nonreactive (Nonreactive)
== END 2022-10-30 11:28 | disposition home or self-care (01) ==
LOC: HO.HMGCLNP 11:27
PROVIDERS: Visit Provider Family Medicine
DX: L85.3 Xerosis cutis (principal); I10 Essential (primary) hypertension; Z11.59 Encounter for screening for other viral diseases
CPT/HCPCS: 80048; 80061; 80076; 82043; 82607; 84443; 85025; 86803

== ENCOUNTER 2023-03-14 20:11 | Emergency (ER) | payer OTHER, SELFPAY ==
--- NOTE | ~2023-03-14 | CT_ITS ---
EXAMINATION: CT HEAD WITHOUT CONTRAST (STROKE PROTOCOL) CLINICAL INFORMATION: Stroke protocol. COMPARISON: CT head February 13, 2022 TECHNIQUE: Contiguous axial imaging was performed from the skull base to vertex without intravenous administration of contrast. Coronal and sagittal reformatted images are performed at the CT scanner. [This CT examination was performed using dose optimization techniques as appropriate, variously including the following: *Automated exposure control *Adjustment of mA and/or kV according to patient size (this includes techniques or standardized protocols for targeted exams where dose is matched to indication/reason for exam; i.e. extremities or head) *Use of iterative reconstruction technique] DLP: 620 mGy-cm. FINDINGS: There is an acute intraparenchymal bleed in the left thalamus with mild mass effect. The parenchymal bleed measures approximately 3.1 cm transverse by 1.9 cm AP by 2.4 cm superior-inferior. Midline shift from left to right at the level the third ventricle measuring about 5 mm. Hemorrhage extends into the third and fourth ventricle as well. No hydrocephalus. There is generalized global volume loss. There is moderate prominence of the ventricles and the sulci . There is moderate hypodensity of the periventricular white matter due to chronic small vessel ischemic disease. There are vascular calcifications of the internal carotid arteries bilaterally. There is no osseous abnormality. The mastoid air cells and visualized portions of the paranasal sinuses are well-aerated. CT/CT head for stroke IMPRESSION: 1. Acute intraparenchymal bleed in the left thalamus with extension into the third and fourth ventricles. 2. Midline shift from left to right at the level of the third ventricle measuring about 5 mm. This critical result was discussed with Myra Mena at 03/14/2023, 8:35 PM . It was ascertained that the content and urgency of the report was understood at the time of direct communication.
--- NOTE | 2023-03-14 20:19 | ECG_ITS ---
Test Reason : STROKE Blood Pressure : / mmHG Vent. Rate : 075 BPM Atrial Rate : 075 BPM P-R Int : 144 ms QRS Dur : 122 ms QT Int : 412 ms P-R-T Axes : 045 -07 147 degrees QTc Int : 460 ms Normal sinus rhythm Left bundle branch block Abnormal ECG When compared with ECG of 29-JUL-2022 18:41, Criteria for Inferior infarct are no longer Present Referred By: Myra Branch Electronically Signed By:MARK TRIANA
[2023-03-14 20:22] VITALS: BP 156/65; BP 179/106; PULSE 76; PULSE 80; RESP 14; TEMP 36.9; O2SAT 92; O2SAT 95
[2023-03-14 20:22] LABS: Prothrombin Time Whole Bld POC 13.1 sec (11.1-13.5); ~PT, ~INR - Anti Coag Clinic 1.1 (0.9-1.1)
[2023-03-14 20:23] LABS: Glucose, Whole Blood 152 mg/dL (60-115)
--- NOTE | 2023-03-14 20:31 | ED.NEUROSD ---
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 Patient last known to be normal about 1 hour ago when she started to have a right-sided weakness with right facial droop and expressive aphasia, initially patient's blood pressure by EMS was 170/100 than recheck was 150/80 patient emergency department with blood pressure 156/78. Related Data Home Medications Medication Instructions Recorded Confirmed acetaminophen 500 mg tablet 1 tab PO Q8H PRN Pain 04/10/21 07/30/22 amlodipine 5 mg tablet 1 tab PO DAILY 04/10/21 07/30/22 cholecalciferol (vitamin D3) 25 1 tab PO DAILY 04/10/21 07/30/22 mcg (1,000 unit) tablet clopidogrel 75 mg tablet 1 tab PO DAILY 04/10/21 07/30/22 furosemide 20 mg tablet 0.5 tab PO DAILY 04/10/21 07/30/22 pravastatin 40 mg tablet 1 tab PO BEDTIME 04/10/21 07/30/22 valsartan 320 mg tablet (Diovan) 1 tab PO DAILY 04/10/21 07/30/22 apixaban 5 mg tablet (Eliquis) 1 tab PO BID 07/30/22 07/30/22 gabapentin 400 mg capsule 1 cap PO TID 07/30/22 07/30/22 loperamide 2 mg capsule 2 cap PO Q6H 07/30/22 07/30/22 melatonin 3 mg tablet 3 mg PO BEDTIME PRN Sleep 07/30/22 07/30/22 metformin 500 mg tablet,extended 2 tab PO QPM 07/30/22 07/30/22 release 24 hr pantoprazole 40 mg tablet,delayed 1 tab PO DAILY 07/30/22 07/30/22 release sertraline 25 mg tablet 1 tab PO DAILY 07/30/22 07/30/22 Previous Rx's Medication Instructions Recorded oxycodone 5 mg tablet 5 mg PO Q6H PRN Pain, Severe (Pain 02/16/22 Scale 7-10) #1 tab azithromycin 500 mg tablet 500 mg PO DAILY 5 days #5 tabs 08/02/22 cefuroxime axetil 500 mg tablet 500 mg PO BID #12 tabs 08/02/22 Allergies Allergy/AdvReac Type Severity Reaction Status Date / Time aspirin [ASPIRIN] Allergy Intermediate NUMBNESS Verified 06/13/22 15:34 Penicillins [PENICILLINS] Allergy Intermediate RASH Verified 06/13/22 15:34 penicillin V Allergy Unknown Rash Verified 06/13/22 15:34 potassium Allergy Unknown Unknown Verified 06/13/22 15:34 Review of Systems Review of Systems: Yes Unobtainable due to mental status ( Acute hemorrhagic stroke) [facility] Past Medical History Medical History Unilateral AKA Asthma Hyperlipidemia Aortic stenosis Pulmonary hypertension Diabetes HTN (hypertension) Social History Social History Household Members: Family Housing: House Do you presently have visiting nurse or other home services: Yes Alcohol intake: never Patient Tobacco Use Status: Never used Tobacco Advance Directives Date on File: 02/19/22 service: No Current occupational status: disabled Physical Exam Vital Signs: Vital Signs: Vital signs have been reviewed and appear to be correct. Blood pressure elevated. Heart rate normal. Respiratory rate normal. Temperature normal. Oxygen saturation normal. Appearance: Alert. Oriented X3. No acute distress. Head: Normal external exam. Normocephalic. Atraumatic. No Peters signs noted. No raccoon eyes noted Eyes: PERRLA. EOMI. Conjunctiva and sclera normal. Eyelids normal. ENT: TM's Normal. Pharynx normal. Uvula midline. Moist mucous membranes. No trismus noted. No drooling noted. No muffled voice noted. Neck: Normal inspection. Neck supple. FROM. No adenopathy. Thyroid Normal. No meningeal signs. No neck mass noted. CVS: Normal heart rate and rhythm. Heart sound normal. No murmurs noted. Pulses normal throughout. Respiratory: No respiratory distress. Painless inspiration. Breath sounds normal. No wheezes/rales/rhonchi noted. Chest nontender. No accessory muscle usage noted or decreased air movement noted. Abdomen: Soft and nontender. Bowel sounds normal in all 4 quadrants. No distention noted. No organomegaly noted. No visible injury noted. Back: No CVA tenderness. Full range of motion noted. Skin: Skin warm and dry. Normal skin color. Normal skin turgor. No rashes/lesions/lacerations noted. Extremities: No lower extremity edema. Extremities exhibit normal range of motion. Extremities nontender. Neuro: referred to NIH score Course Course Course Narrative: a 77-year-old female with hemorrhagic left thalamic intraparenchymal bleed, patient is on Eliquis. With NIH score of 11. Will consider Kcentra. Start on nicardipine pain drip keep systolic blood pressure at 150. the case was discussed with who accepted the patient to ICU at [facility]. Medical Decision Making Differential Diagnosis Differential Diagnoses: The differential diagnosis associated with the presentation includes ( Ischemic stroke, hemorrhagic stroke, hypertensive emergency, electrolyte abnormality, severe anemia, UTI, viral infection.) Admission/Observation Consideration of admission/observation: Escalation of care including admission/observation considered Lab Data MDM Lab Attestation statement: I reviewed the patient's lab results. Labs: Lab Results 03/14/23 03/14/23 Range/Units 20:14 20:15 Whole Blood PT 13.1 (11.1-13.5) sec Whole Blood INR 1.1 (0.9-1.1) POC Glucose 152 H (60-115) mg/dL Independent Interpretation I performed an independent interpretation of an: EKG ( normal sinus rhythm at 75 beats per minute LBBB, no change from previous EKG.) and CT Scan ( Head: 3 x 2 cm intraparenchymal bleed to the left thalamic area with 0.5 mm) Radiology Impression Discussion of test interpretation with radiology: I have reviewed the radiologist's reading. Chronic Conditions Patient?s care impacted by: Other ( on anticoagulation.) NIH Stroke Scale Internal: Initial- Upon Arrival Level of Consciousness: Alert Level of Consciousness Questions: Answers both questions correctly Level of Consciousness Commands: Performs both tasks correctly Best Gaze: Forced deviation ( left) Visual: No visual loss Facial Palsy: Complete paralysis Motor Arm (Right): Some effort against gravity Motor Arm (Left): No drift Motor Leg (Right): No effort against gravity Motor Leg (Left): No drift Limb Ataxia: Absent Sensory: Normal Best Language: Mild to moderate aphasia Dysarthia: Normal Extinction and Inattention: No abnormality Score: 11 Critical Care Time Critical Care Time Critical Care Time: Yes Total Critical Care Time: 60 Attestation: I spent 60 minutes providing critical care service to the patient, this including time spent at the bedside to evaluate the patient, reassess the patient, monitoring vital signs, review labs, and radiographic studies, counseling the patient/family, discussing the case with consultants, disposition the patient. Discharge Plan Discharge Clinical Impression: Hemorrhagic stroke, Hypertension Patient Disposition: [facility] Transfer Details: ICU at [facility]. Prescriptions: No Action pravastatin 40 mg tablet 1 tab PO BEDTIME clopidogrel 75 mg tablet 1 tab PO DAILY amlodipine 5 mg tablet 1 tab PO DAILY acetaminophen 500 mg tablet 1 tab PO Q8H PRN (Reason: Pain) valsartan [Diovan] 320 mg tablet 1 tab PO DAILY furosemide 20 mg tablet 0.5 tab PO DAILY cholecalciferol (vitamin D3) 25 mcg (1,000 unit) tablet 1 tab PO DAILY oxycodone 5 mg Tablet 5 mg PO Q6H PRN (Reason: Pain, Severe (Pain Scale 7-10)) Qty: 1 0RF Rx Instructions: Partial Fill upon patient request. gabapentin 400 mg capsule 1 cap PO TID pantoprazole 40 mg tablet,delayed release (DR/EC) 1 tab PO DAILY sertraline 25 mg tablet 1 tab PO DAILY Hold Instructions: Resume on 08/06/22. patient refused to take it , please discussed with the patient before using it. metformin 500 mg tablet extended release 24 hr 2 tab PO QPM Eliquis 5 mg tablet 1 tab PO BID loperamide 2 mg capsule 2 cap PO Q6H melatonin 3 mg Tablet 3 mg PO BEDTIME PRN (Reason: Sleep) cefuroxime axetil 500 mg tablet 500 mg PO BID Qty: 12 0RF azithromycin 500 mg tablet 500 mg PO DAILY 5 Days Qty: 5 0RF
[2023-03-14] MEDS: Hum Prothrombin Cplx(PCC)4Fact 2,000 UNIT in Container,Empty 0 ML 480 UNIT IV (20:48)
[2023-03-14 20:52] LABS: MANUAL DIFF FLAG NO
[2023-03-14 20:54] LABS: Basophils Absolute Auto 0.1 X10*3/uL (0.0-0.2); Basophils Percent Auto 0.7 % (0-2); Eosinophils Absolute Auto 0.2 X10*3/uL (0.0-0.4); Eosinophils Percent Auto 2.3 % (0-4); Hematocrit 42.2 % (37.0-47.0); Hemoglobin 13.9 g/dl (12.0-16.0); Imm Gran Abs Auto 0.17 X10*3/uL (0.00-0.03); Imm Gran Pct Auto 1.8 % (0.0-0.4); Lymphocytes Absolute Auto 3.5 X10*3/uL (1.2-4.9); Lymphocytes Percent Auto 36.5 % (20-40); Mean Corpuscular HGB Conc 32.9 g/dl (31.0-35.0); Mean Corpuscular Volume 91.1 fL (80.0-98.0); Mean Platelet Volume 10.6 fL (9.4-12.3); Monocytes Absolute Auto 0.9 X10*3/uL (0.1-1.2); Monocytes Percent Auto 9.8 % (2-11); Neutrophils Absolute Auto 4.6 x10*3/uL (2.0-8.3); Neutrophils Percent Auto 48.9 % (45-73); Platelet Count 248 X10*3/uL (160-400); Red Blood Count 4.63 X10*6/uL (4.20-5.50); Red Cell Distribution Width 13.1 % (11.0-16.0); White Blood Count 9.5 X10*3/uL (4.8-10.8)
[2023-03-14 20:58] VITALS: BP 133/75; PULSE 78; RESP 20; O2SAT 98
[2023-03-14 21:03] LABS: INTERNATIONAL NORM RATIO 1.1 (0.9-1.1); Prothrombin Time 13.8 SEC (11.1-13.3)
[2023-03-14 21:07] LABS: COVID-19 Test Negative (Negative); IDNOW Serial# 08D9AD1C
--- NOTE | 2023-03-14 21:08 | PC.NURSE ---
Pt [place] from home, lives with daughter, primarily Occitan speaking, daughter reports pt is verbal at baseline, able to move right extremity, but around 1800 she noticed a right facial droop acting weird , no right arm movement. Pt has a right facial droop, mumbling, not answering questions appropriately, slightly weak left hand nurse practical, no movement to right arm, pt is able to follow minimal command to stick tongue out, wiggle right leg toes,. Pt has a left above the knee amputation. SpO2 98% on 2L via NC. 2nd IV line established, med given per AUG.
[2023-03-14 21:10] LABS: Stroke Lab Use COMPLETE
[2023-03-14 21:18] LABS: Troponin-I High Sensitivity < 2.7 ng/L (<3.5-17.0)
--- NOTE | 2023-03-14 21:26 | PC.NURSE ---
Family at bedside, updated on plan of care.
[2023-03-14 21:33] LABS: Anion Gap 14 (12-20); Blood Urea Nitrogen 16 mg/dL (9-16); Carbon Dioxide 23 mmol/L (22-29); Chloride 107 mmol/L (96-108); Creatinine Clr Calc Pharmacy 77.3; Estimated Glomerular Filt Rate > 60; Glucose Random 162 mg/dL (60-115); Potassium 3.5 mmol/L (3.3-5.1); Sodium 140 mmol/L (135-145)
--- NOTE | 2023-03-14 21:37 | PC.NURSE ---
Nurse to nurse report given to Ermelinda at [facility] Daily 4B. Pt transported via EMS.
== END 2023-03-14 23:38 | disposition short-term general hospital (02) ==
LOC: HO.ED 21:49
PROVIDERS: Emergency Provider Emergency Medicine
DX: I61.2 Nontraumatic intracerebral hemorrhage in hemisphere, unspecified (principal); I10 Essential (primary) hypertension; R29.810 Facial weakness; R47.01 Aphasia; G81.91 Hemiplegia, unspecified affecting right dominant side; R29.711 NIHSS score 11; E11.9 Type 2 diabetes mellitus without complications; E78.5 Hyperlipidemia, unspecified; Z79.01 Long term (current) use of anticoagulants; Z79.84 Long term (current) use of oral hypoglycemic drugs
CPT/HCPCS: 36415; 70450; 80048; 82550; 82947; 84484; 85025; 85610; 85730; 87635; 93005; 99285; J7168

== ENCOUNTER 2023-03-30 12:16 | Outpatient (REF) | payer OTHER, SELFPAY | END 2023-03-30 12:17 | disposition home or self-care (01) | LOC: HO.HMGCLNP 12:16 | PROVIDERS: PCP Internal Medicine; Visit Provider Internal Medicine | DX: I61.9 Nontraumatic intracerebral hemorrhage, unspecified (principal); Z79.899 Other long term (current) drug therapy | CPT/HCPCS: 80051 ==

== ENCOUNTER 2024-08-22 17:39 | Emergency (ER) | payer OTHER, SELFPAY ==
--- NOTE | ~2024-08-22 | XR_ITS ---
CLINICAL HISTORY: dyspnea 1 view chest x-ray Comparison: CT/SR - CT CHEST W IV CON - 07/29/22 23:50 EST CR/SR - XR CHEST 1V - 07/29/22 18:59 EST Findings: Bilateral interstitial and perihilar opacities obscuring the cardiomediastinal silhouette. Probable small left pleural effusion. No pneumothorax. Aortic atherosclerosis. IMPRESSION: Bilateral interstitial and perihilar opacities, this could be pneumonia or pulmonary edema. Probable small left pleural effusion. This document has been electronically signed by: Vanesa Hart MD on 08/22/2024 20:06:40
[2024-08-22 17:49] VITALS: BP 102/48; PULSE 94; RESP 26; TEMP 36.9; O2SAT 94; BMI 32.4
--- NOTE | 2024-08-22 18:08 | ECG_ITS ---
Test Reason : ams Blood Pressure : */* mmHG Vent. Rate : 109 BPM Atrial Rate : 109 BPM P-R Int : 128 ms QRS Dur : 156 ms QT Int : 382 ms P-R-T Axes : 0 -4 143 degrees QTcB Int : 514 ms Sinus tachycardia with Premature supraventricular complexes Left bundle branch block Abnormal ECG When compared with ECG of 14-Mar-2023 20:48, Premature supraventricular complexes are now Present QRS duration has increased QT has lengthened Referred By: Carlos Hernandez Electronically Signed By: Quincy Bauamn
--- NOTE | 2024-08-22 18:16 | PC.NURSE ---
family alerted this RN for help, patient tongue noted to be protruding. patient bradycardic on the monitor, rate initially 40 then dropped to 27, patient skin dusky and diaphoretic. patient placed on non rebreather for perfusion support, patient bp noted to be 72/40, code card pulled to bedside, ED providers at bedside. patient began to recover, heart rate increased, patient eyes opened, patient began to maintain her airway. EKG obtained, additional IV access started. attempting lab draw. patient family stated to provider that patient has been having vaginal bleeding. normal saline bolus started with pressure bag. pacer pads applied to patient for precaution.
--- NOTE | 2024-08-22 18:38 | ED_ITS ---
HPI - General Adult General Chief complaint: Syncope Stated complaint: syncopal episode Time Seen by Provider: 08/22/24 17:55 Source: patient, RN notes reviewed, old records reviewed and historic interpreter Mode of arrival: EMS Limitations: language barrier History of Present Illness ED Provider: Mary HPI narrative: 79-year-old female with past medical history significant for diabetes, history of hemorrhagic CVA, peripheral vascular disease, hypertension presents for evaluation of a syncopal episode. The patient arrives via EMS. Apparently just prior to arrival family was over to celebrate the patient's birthday. The patient was seated and began to feel dizzy Per family the patient's eyes rolled back in her head and she became unresponsive The patient denies any pain, she was have a dry cough When I went to evaluate the patient, she has no a syncopal episode in front of me that lasted about 1 minute. Her heart rate decreased down to about 27 on the monitor. We are unable to get an EKG until after this episode resolved. 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 ? Related Data Home Medications ?Medication ?Instructions ?Recorded ?Confirmed acetaminophen 500 mg tablet 1 tab PO Q8H PRN Pain 04/10/21 07/30/22 amlodipine 5 mg tablet 1 tab PO DAILY 04/10/21 07/30/22 cholecalciferol (vitamin D3) 25 1 tab PO DAILY 04/10/21 07/30/22 mcg (1,000 unit) tablet clopidogrel 75 mg tablet 1 tab PO DAILY 04/10/21 07/30/22 furosemide 20 mg tablet 0.5 tab PO DAILY 04/10/21 07/30/22 pravastatin 40 mg tablet 1 tab PO BEDTIME 04/10/21 07/30/22 valsartan 320 mg tablet (Diovan) 1 tab PO DAILY 04/10/21 07/30/22 apixaban 5 mg tablet (Eliquis) 1 tab PO BID 07/30/22 07/30/22 gabapentin 400 mg capsule 1 cap PO TID 07/30/22 07/30/22 loperamide 2 mg capsule 2 cap PO Q6H 07/30/22 07/30/22 melatonin 3 mg tablet 3 mg PO BEDTIME PRN Sleep 07/30/22 07/30/22 metformin 500 mg tablet,extended 2 tab PO QPM 07/30/22 07/30/22 release 24 hr pantoprazole 40 mg tablet,delayed 1 tab PO DAILY 07/30/22 07/30/22 release sertraline 25 mg tablet 1 tab PO DAILY 07/30/22 07/30/22 Previous Rx's ?Medication ?Instructions ?Recorded oxycodone 5 mg tablet 5 mg PO Q6H PRN Pain, Severe (Pain 02/16/22 Scale 7-10) #1 tab azithromycin 500 mg tablet 500 mg PO DAILY 5 days #5 tabs 08/02/22 cefuroxime axetil 500 mg tablet 500 mg PO BID #12 tabs 08/02/22 Allergies Allergy/AdvReac Type Severity Reaction Status Date / Time aspirin [ASPIRIN] Allergy Intermediate NUMBNESS Verified 08/22/24 17:59 Penicillins [PENICILLINS] Allergy Intermediate RASH Verified 08/22/24 17:59 penicillin V Allergy Unknown Rash Verified 08/22/24 17:59 potassium Allergy Unknown Unknown Verified 08/22/24 17:59 Review of Systems 2 Constitutional: Constitutional: Denies body ache(s), Denies chills, Denies fever(s) and Denies headache(s) ENT: Reports dizziness and Denies headache(s) Cardiovascular: Cardiovascular: Denies chest pain, Reports syncope and Denies dyspnea Respiratory: Respiratory: Reports cough and Denies dyspnea Gastrointestinal: Gastrointestinal: Denies abdominal pain, Denies nausea and Denies vomiting Musculoskeletal: Musculoskeletal: Denies back pain Integumentary/Breasts: Skin/Breast: Denies rash Neurologic: Denies Abnormal speech present, Denies behavioral changes, Reports dizziness, Reports syncope, Denies headache(s), Denies convulsions and Denies seizure-like activity Psychiatric: Psychiatric: Denies behavioral changes [facility] Past Medical History Medical History Unilateral AKA Asthma Hyperlipidemia Aortic stenosis Pulmonary hypertension Diabetes HTN (hypertension) Social History Social History Household Members: Family Housing: House Do you presently have visiting nurse or other home services: Yes Alcohol intake: never Patient Tobacco Use Status: Never used Tobacco Advance Directives: Yes Advance Directives on File: Yes Advance Directives Date on File: 02/19/22 Do you have a plan to hurt others: No Plan service: No Current occupational status: disabled Physical Exam ED Vital Signs: Vital Signs - 24 hr 08/22/24 17:49 08/22/24 18:47 08/22/24 19:17 Temperature 98.4 F Pulse Rate 94 85 96 Respiratory Rate 26 H 42 H 18 Blood Pressure 102/48 L 130/88 111/54 L Pulse Oximetry 94 97 95 Oxygen Delivery Method Room Air Nasal Cannula Nasal Cannula Oxygen Flow Rate 2 2 BMI result Body Mass Index 32.4 Const General: alert and awake Nutritional Appearance: well nourished Orientation/consciousness: patient oriented x3 HENMT Head: Yes normocephalic and Yes atraumatic Eyes Eyelids: Yes eyelids normal Conjunctivae: conjunctivae normal Sclerae: sclerae normal Corneas: corneas normal Pupils: Equal, round and reactive pupils present EOM: EOMs intact bilaterally Neck Neck: Yes full ROM Resp Effort & Inspection: normal respiratory effort, able to speak in complete sentences and not labored Cardio Rate: regular rate Rhythm: regular rhythm GI Inspection: No distended Palpation (GI): Soft to palpation, not firm, nontender, no guarding and not rigid Skin General skin exam: elasticity normal Neuro General: patient oriented x3 Cranial nerves: Yes Equal, round and reactive pupils present and Yes Bilaterally intact EOM present Cognition (Neuro): normal cognition Speech: No Abnormal speech present Extrem Other: Left AKA Course Reevaluation(s) Reevaluation #1: I was discussing with family, her daughter regarding code status. The daughter and family friend who is present explicitly stated the patient did not want to be intubated and said no to CPR as well, the wishes with the patient were to ?let her pass peacefully. ? Shortly thereafter, the patient began to slava down again and appeared to have another syncopal episode. On the monitor there was asystole. I did ask the historic interpreter to make sure that the family understood what DNR/DNI meant. After confirming they understood, they still wanted to the patient to remain DNR/DNI. The patient did not have a pulse at this time. She had no heart sounds, or corneal reflex and time of was called at 8:02 pm Time: 20:04 Reevaluation #2: I discussed with the certified medical transcriptionist, I spoke with [employer], case case was declined by certified medical transcriptionist. Sales And Merchandising Associate was called to speak with the family. certificate was certified Time: 20:57 Reevaluation #3: Tab Blackman DO (my note) I was present in the room to help supervise during the patient's stay in the emergency department. Due to hypotension with no clear etiology I recommended giving IV fluids and performed a bedside pocus which did not show pulmonary edema or pericardial effusion but did show a hyperdynamic heart with no right heart strain. The patient initially responded to fluids. She was then found to have a critical hemoglobin of 6.8 with no active bleeding. She also had syncope Witness shortly after arrival with bradycardia which promptly responded spontaneously. She was placed on oxygen for mild hypoxia. The patient was too critically ill to transfer to CT imaging for further evaluation to support potential etiologies of her condition. I witnessed the physician school bus driver/teacher assistant, Carlos munoz, discussed with family while the patient was alive and it was determined that she was DNR/DNI. Shortly thereafter, the patient experienced bradycardia, became unresponsive and was confirmed to have no pulse. Time of was confirmed at 2001. Potential etiologies of cardiac arrest include septic shock due to multifocal pneumonia, ischemia secondary to anemia or other cause. The family was at the bedside during the patient's stay and all questions were answered to the best of my ability. Time: 21:15 Medications Administered Discontinued Medications Generic Name Dose Route Start Last Admin Trade Name Freq PRN Reason Stop Dose Admin Ceftriaxone Sodium 1 gm 08/22/24 19:36 08/22/24 19:45 Ceftriaxone Sodium 1 Gm Vial IVPUSH 08/22/24 19:37 1 gm ONCE ONE Administration Sodium Chloride 1,000 mls @ 999 mls/hr 08/22/24 18:30 08/22/24 19:46 Ns IV 08/22/24 19:30 Infused .Q1H1M GALE Infusion Azithromycin 500 mg/ Sodium 250 mls @ 125 mls/hr 08/22/24 19:36 08/22/24 20:06 Chloride IV 08/22/24 21:35 Infused ONCE ONE Infusion Vancomycin HCl 1,500 mg/ 500 mls @ 333.333 mls/hr 08/22/24 19:44 08/22/24 20:06 Sodium Chloride IV 08/22/24 21:13 Not Given ONCE ONE Ondansetron HCl 4 mg 08/22/24 19:36 08/22/24 19:41 Ondansetron Hcl 4 Mg/2 Ml Vial IVPUSH 08/22/24 19:37 4 mg ONCE ONE Administration Medical Decision Making Medical Decision Making MDM Narrative: 79-year-old female with past medical history as above presents for evaluation of a syncopal episode that happened prior to arrival prompting the ER visit. She then had another syncopal episode while in the emergency department. This lasted about 1 minute. There was no seizure-like activity, when the patient came to she was not confused or altered in any way. Less likely seizure disorder. Possibly vasovagal syncope, but unclear cause. The patient denies any chest pain but per family she will never complain of pain. Her EKG shows a left bundle branch block which was previously documented in 2022. She has not appear to have any neuro deficits on exam however given the syncopal episodes and history of intra cranial hemorrhage we will get a CT scan of the brain. We had a CTA of the chest and abdomen to evaluate for aortic dissection. Plan for labs including blood cultures, lactic, viral swabs. Further workup as indicated. The patient's glucose was elevated to over 200, this is not a hypoglycemic issue Differential Diagnosis Differential Diagnoses: The differential diagnosis associated with the presentation includes Syncope Aortic dissection Intracranial hemorrhage PE less likely Hypovolemia Blood loss anemia Sepsis less likely Admission/Observation Consideration of admission/observation: Escalation of care including admission/observation considered Lab Data 08/22/24 18:33 08/22/24 18:33 Labs: Lab Results 08/22/24 08/22/24 08/22/24 Range/Units 18:02 18:21 18:33 WBC 11.3 H (4.8-10.8) X10*3/uL RBC 3.53 L D (4.20-5.50) X10*6/uL Hgb 6.3 L* D (12.0-16.0) g/dl Hct 23.0 L D (37.0-47.0) % MCV 65.2 L (80.0-98.0) fL MCH 17.8 L (27.0-33.0) pg MCHC 27.4 L (31.0-35.0) g/dl RDW 19.9 H (11.0-16.0) % Plt Count 497 H D (160-400) X10*3/uL MPV 10.5 (9.4-12.3) fL Immature Gran % (Auto) 0.4 (0.0-0.4) % Neut % (Auto) 61.1 (45-73) % Lymph % (Auto) 27.5 (20-40) % Bibb % (Auto) 9.5 (2-11) % Eos % (Auto) 0.8 (0-4) % Baso % (Auto) 0.7 (0-2) % Lymph # (Auto) 3.1 (1.2-4.9) X10*3/uL Bibb # (Auto) 1.1 (0.1-1.2) X10*3/uL Eos # (Auto) 0.1 (0.0-0.4) X10*3/uL Baso # (Auto) 0.1 (0.0-0.2) X10*3/uL Abs Immat Gran (auto) 0.05 H (0.00-0.03) X10*3/uL Absolute Neuts (auto) 6.9 (2.0-8.3) x10*3/uL Absolute Nucleated RBC 0.030 H (0.0-0.012) X10*3/uL Nucleated RBC % (auto) 0.3 H (0.0-0.2) /100WBC PT 20.1 H (10.9-12.4) SEC INR 1.7 H (0.9-1.1) Sodium 141 (135-145) mmol/L Potassium 3.8 (3.3-5.1) mmol/L Chloride 110 H (96-108) mmol/L Carbon Dioxide 16 L (22-29) mmol/L Anion Gap 19 (12-20) BUN 10 (9-16) mg/dL Creatinine 0.62 (0.5-1.4) mg/dL Estim Creat Clear Calc 83.4 Estimated GFR > 60 POC Glucose 226 H (60-115) mg/dL Random Glucose 254 H (60-115) mg/dL Lactic Acid (0.5-2.0) mmol/L Calcium 8.1 L D (8.4-10.2) mg/dL Phosphorus 3.0 (2.7-4.5) mg/dL Magnesium 2.0 (1.6-2.6) mg/dL Total Bilirubin 0.7 (0.0-1.0) mg/dL AST 60 H (5-31) U/L ALT 24 (0-31) U/L Alkaline Phosphatase 94 (39-117) U/L Total Creatine Kinase 122 (26-140) U/L Troponin I High Sens (<3.5-17.0) ng/L B-Natriuretic Peptide (<100) pg/mL Total Protein 6.5 (6.5-8.0) g/dL Albumin 3.4 L (3.5-5.0) g/dL Lipase 15 (8-78) U/L Influenza Type A (PCR) NEGATIVE (Negative) Influenza Type B (PCR) NEGATIVE (Negative) RSV RNA Qual (PCR) NEGATIVE (Negative) SARS-CoV-2 RNA (RT-PCR) NEGATIVE (Negative) Blood Type Antibody Screen Crossmatch 08/22/24 08/22/24 Range/Units 18:34 19:14 WBC (4.8-10.8) X10*3/uL RBC (4.20-5.50) X10*6/uL Hgb (12.0-16.0) g/dl Hct (37.0-47.0) % MCV (80.0-98.0) fL MCH (27.0-33.0) pg MCHC (31.0-35.0) g/dl RDW (11.0-16.0) % Plt Count (160-400) X10*3/uL MPV (9.4-12.3) fL Immature Gran % (Auto) (0.0-0.4) % Neut % (Auto) (45-73) % Lymph % (Auto) (20-40) % Bibb % (Auto) (2-11) % Eos % (Auto) (0-4) % Baso % (Auto) (0-2) % Lymph # (Auto) (1.2-4.9) X10*3/uL Bibb # (Auto) (0.1-1.2) X10*3/uL Eos # (Auto) (0.0-0.4) X10*3/uL Baso # (Auto) (0.0-0.2) X10*3/uL Abs Immat Gran (auto) (0.00-0.03) X10*3/uL Absolute Neuts (auto) (2.0-8.3) x10*3/uL Absolute Nucleated RBC (0.0-0.012) X10*3/uL Nucleated RBC % (auto) (0.0-0.2) /100WBC PT (10.9-12.4) SEC INR (0.9-1.1) Sodium (135-145) mmol/L Potassium (3.3-5.1) mmol/L Chloride (96-108) mmol/L Carbon Dioxide (22-29) mmol/L Anion Gap (12-20) BUN (9-16) mg/dL Creatinine (0.5-1.4) mg/dL Estim Creat Clear Calc Estimated GFR POC Glucose (60-115) mg/dL Random Glucose (60-115) mg/dL Lactic Acid 8.2 H* (0.5-2.0) mmol/L Calcium (8.4-10.2) mg/dL Phosphorus (2.7-4.5) mg/dL Magnesium (1.6-2.6) mg/dL Total Bilirubin (0.0-1.0) mg/dL AST (5-31) U/L ALT (0-31) U/L Alkaline Phosphatase (39-117) U/L Total Creatine Kinase (26-140) U/L Troponin I High Sens 12.8 D (<3.5-17.0) ng/L B-Natriuretic Peptide 476 H (<100) pg/mL Total Protein (6.5-8.0) g/dL Albumin (3.5-5.0) g/dL Lipase (8-78) U/L Influenza Type A (PCR) (Negative) Influenza Type B (PCR) (Negative) RSV RNA Qual (PCR) (Negative) SARS-CoV-2 RNA (RT-PCR) (Negative) Blood Type B Negative Antibody Screen NEGATIVE Crossmatch See Detail Independent Interpretation I performed an independent interpretation of an: EKG Interpretation: Sinus tachycardia with a rate of 109 beats minute. Multiple PVCs. Critical Care Time Critical Care Time Critical Care Time: Yes Total Critical Care Time: 50 Attestation: Patient arrived that there syncopal episode. She had a witnessed syncopal episode with significant hypotension and bradycardia on arrival to the ED. She was found to be anemic. Workup was still pending. The patient ultimately coded and family was bedside. Wish for the patient to be DNR/DNI. Time of was called at 8:02 p.m. Discharge Plan Discharge Clinical Impression: Syncope, Cardiopulmonary arrest Patient Disposition: Interventions: Organ Donor Nursing Doc/Post Mortem care Last Done: 08/22/24 22:04
[2024-08-22 18:40] LABS: Glucose, Whole Blood 226 mg/dL (60-115)
[2024-08-22 18:41] LABS: MANUAL DIFF FLAG NO
[2024-08-22] MEDS: 0.9 % Sodium Chloride 1,000 ML 999 ML IV (18:42)
[2024-08-22 18:45] LABS: Basophils Absolute Auto 0.1 X10*3/uL (0.0-0.2); Basophils Percent Auto 0.7 % (0-2); Eosinophils Absolute Auto 0.1 X10*3/uL (0.0-0.4); Eosinophils Percent Auto 0.8 % (0-4); Imm Gran Abs Auto 0.05 X10*3/uL (0.00-0.03); Imm Gran Pct Auto 0.4 % (0.0-0.4); Lymphocytes Absolute Auto 3.1 X10*3/uL (1.2-4.9); Lymphocytes Percent Auto 27.5 % (20-40); Mean Corpuscular HGB Conc 27.4 g/dl (31.0-35.0); Mean Corpuscular Hemoglobin 17.8 pg (27.0-33.0); Mean Corpuscular Volume 65.2 fL (80.0-98.0); Mean Platelet Volume 10.5 fL (9.4-12.3); Monocytes Absolute Auto 1.1 X10*3/uL (0.1-1.2); Monocytes Percent Auto 9.5 % (2-11); NRBC Pct Auto 0.3 /100WBC (0.0-0.2); Neutrophils Absolute Auto 6.9 x10*3/uL (2.0-8.3); Neutrophils Percent Auto 61.1 % (45-73); Platelet Count 497 X10*3/uL (160-400); Red Blood Count 3.53 X10*6/uL (4.20-5.50); Red Cell Distribution Width 19.9 % (11.0-16.0); White Blood Count 11.3 X10*3/uL (4.8-10.8)
[2024-08-22 18:47] VITALS: BP 130/88; PULSE 85; RESP 42; O2SAT 97
[2024-08-22 18:47] LABS: Influenza A PCR NEGATIVE (Negative); Influenza B PCR NEGATIVE (Negative); Resp Syncy Virus RNA Qual PCR NEGATIVE (Negative); SARS COV2 PCR INHOUSE NEGATIVE (Negative)
[2024-08-22 18:48] LABS: INTERNATIONAL NORM RATIO 1.7 (0.9-1.1); Prothrombin Time 20.1 SEC (10.9-12.4)
[2024-08-22 18:49] LABS: Hemoglobin 6.3 g/dl (12.0-16.0)
[2024-08-22 19:00] LABS: Alanine Aminotransferase 24 U/L (0-31); Albumin Level 3.4 g/dL (3.5-5.0); Alkaline Phosphatase 94 U/L (39-117); Anion Gap 19 (12-20); Aspartate Amino Transferase 60 U/L (5-31); Bilirubin Total 0.7 mg/dL (0.0-1.0); Blood Urea Nitrogen 10 mg/dL (9-16); Calcium 8.1 mg/dL (8.4-10.2); Carbon Dioxide 16 mmol/L (22-29); Chloride 110 mmol/L (96-108); Creatinine Clr Calc Pharmacy 83.4; Estimated Glomerular Filt Rate > 60; Glucose Random 254 mg/dL (60-115); Lipase 15 U/L (8-78); Potassium 3.8 mmol/L (3.3-5.1); Sodium 141 mmol/L (135-145); Total Protein 6.5 g/dL (6.5-8.0)
[2024-08-22 19:06] LABS: Troponin-I High Sensitivity 12.8 ng/L (<3.5-17.0)
[2024-08-22 19:10] LABS: B Type Natriuretic Peptide 476 pg/mL (<100)
--- NOTE | 2024-08-22 19:15 | PC.NURSE ---
this rn assumed care of pt, respirations even but labored, 95% on 2L nasal cannula. Jared FELIPE at bedside with family signing blood transfusion consent. Pads remain in place d.t previous episode of bradycardia. pt nrs 95bpm. code cart at bedside for safety.
[2024-08-22 19:17] VITALS: BP 111/54; PULSE 96; RESP 18; O2SAT 95
[2024-08-22 19:28] LABS: Lactic Acid 8.2 mmol/L (0.5-2.0)
[2024-08-22] MEDS: ondansetron HCL 4 MG/2 ML VIAL IVPUSH (19:41)
[2024-08-22] MEDS: Azithromycin 500 MG in 0.9 % Sodium Chloride 250 ML 125 MG IV (19:45)
[2024-08-22] MEDS: cefTRIAXone sodium 1 GM VIAL IVPUSH (19:45)
--- NOTE | 2024-08-22 20:09 | PC.NURSE ---
this rn at bedside to administer antibiotics. at 1945- pt noted to slava down and go unresponsive, Jared FELIPE at bedside and MD Blackman at bedside. pt removed from highflow per wishes,per MD discussion with family at bedside, pt wishes to be DNR/DNI, no resuscitation precautions provided. Time of called at 2001.
--- NOTE | 2024-08-22 20:26 | MHC.EDTECH ---
CALLED MEAT SALES AND STORAGE MANAGER AT REQUEST OF CASSANDRA FELIPE @2014
--- NOTE | 2024-08-22 20:30 | PC.NURSE ---
This RN spoke with Frandy and Ning at organ bank at this time. Per Ning pt is a potential organ donor. Case #[id number]
[2024-08-22 20:48] LABS: Reflex Lactate? Lactic Acid Added
--- NOTE | 2024-08-22 22:01 | PC.NURSE ---
per pt family home choice is [facility], [place].
--- NOTE | 2024-08-22 22:44 | PC.NURSE ---
family no longer at bedside at this time, post mortem care provided at this time.
--- NOTE | 2024-08-22 22:49 | PC.NURSE ---
this RN spoke with Tiffanie at organ bank, per organ bank, pt accepted. update given that [facility] did decline the pt. ely notified.
== END 2024-08-23 01:46 | disposition expired ==
PROVIDERS: Physician Assistant; Emergency Provider Emergency Medicine
DX: R55 Syncope and collapse (principal); I46.9 Cardiac arrest, cause unspecified; R00.1 Bradycardia, unspecified; I95.9 Hypotension, unspecified; R09.02 Hypoxemia; R05.9 Cough, unspecified; I44.7 Left bundle-branch block, unspecified; Z66 Do not resuscitate; E11.9 Type 2 diabetes mellitus without complications; I10 Essential (primary) hypertension; E78.5 Hyperlipidemia, unspecified; J45.909 Unspecified asthma, uncomplicated; Z86.73 Personal history of transient ischemic attack (TIA), and cerebral infarction without residual deficits; Z03.818 Encounter for observation for suspected exposure to other biological agents ruled out
CPT/HCPCS: 0241U; 36415; 71045; 80053; 82550; 82947; 83605; 83690; 83735; 83880; 84100; 84484; 85025; 85610; 86850; 86900; 86901; 86923; 87040; 93005; 96361; 96365; 96375; 99284; 99285; J0456; J0696; J2405

== ENCOUNTER → 2024-08-22 18:08 | Outpatient (BNV) | payer OTHER, SELFPAY | PROVIDERS: Emergency Provider Emergency Medicine; Visit Provider Internal Medicine Cardiovascular Disease | DX: I49.1 Atrial premature depolarization (principal); I44.7 Left bundle-branch block, unspecified | CPT/HCPCS: 93010 ==

== ENCOUNTER → 2024-08-22 19:35 | Outpatient (BNV) | payer OTHER, SELFPAY | PROVIDERS: Emergency Provider Emergency Medicine; Visit Provider Radiology Diagnostic Radiology | DX: J84.9 Interstitial pulmonary disease, unspecified (principal) | CPT/HCPCS: 71045 ==